=== PATIENT | female | born 1955 | race Asian ===

== ENCOUNTER 2023-06-08 07:16 | Observation (INO) ==
--- NOTE | 2023-04-17 11:41 | PAT Medication Instructions ---
Medication Instructions Date of Service April 17, 2023 Home Medications Medication Instructions Recorded diclofenac sodium 1 % topical gel 1 g topical QID PRN pain #100 grams 11/22/22 albuterol sulfate 90 mcg/actuation aerosol inhaler 2 puff inhalation Q6H PRN Wheezing cetirizine 10 mg capsule (Zyrtec) 10 mg PO QAM PRN Allergy Symptoms esomeprazole magnesium 40 mg capsule,delayed release (Nexium) 40 mg PO QAM montelukast 10 mg tablet (Singulair) 10 mg PO QPM acetaminophen 500 mg tablet (Tylenol Extra Strength) 1,000 mg PO ONCE PRN Pain omalizumab 150 mg subcutaneous solution (Xolair) 225 mg subcut Q14D diclofenac sodium 1 % topical gel 1 g topical QID PRN pain evolocumab 140 mg/mL subcutaneous pen injector (Repatha SureClick) 140 mg subcut Q14D ASK your prescriber and surgeon omalizumab 150 mg subcutaneous solution (Xolair) 225 mg subcut Q14D STOP taking 2 weeks before surgery (or as soon as possible if surgery is within 2 weeks) evolocumab 140 mg/mL subcutaneous pen injector (Repatha SureClick) 140 mg subcut Q14D STOP taking 24 hours before surgery diclofenac sodium 1 % topical gel 1 g topical QID PRN pain DO NOT take the morning of surgery cetirizine 10 mg capsule (Zyrtec) 10 mg PO QAM PRN Allergy Symptoms Take morning of surgery With a small sip of water, OTHERWISE NOTHING TO EAT OR DRINK AFTER MIDNIGHT: albuterol sulfate 90 mcg/actuation aerosol inhaler 2 puff inhalation Q6H PRN Wheezing (use if needed; please bring rescue inhaler with you to hospital day of surgery if possible) esomeprazole magnesium 40 mg capsule,delayed release (Nexium) 40 mg PO QAM acetaminophen 500 mg tablet (Tylenol Extra Strength) 1,000 mg PO ONCE PRN Pain (if needed) Take evening before surgery albuterol sulfate 90 mcg/actuation aerosol inhaler 2 puff inhalation Q6H PRN Wheezing (if needed) montelukast 10 mg tablet (Singulair) 10 mg PO QPM acetaminophen 500 mg tablet (Tylenol Extra Strength) 1,000 mg PO ONCE PRN Pain (if needed) Other Notes If you have any questions please call us at [phone] or [phone] or [phone] or [phone]
--- NOTE | 2023-04-25 13:07 | Anesthesiology Consultation ---
Date of Service April 25, 2023 Assessment & Plan (1) Encounter for pre-operative examination: - awaiting PCP optimization form regarding abnormal CBC. - cardiology office visit 11/17/22 [facility]: "...Chronic atypical chest pain - repeat nuclear stress testing in 2022 negative for inducible ischemia Elevated coronary calcium score Hiatal hernia Hyperlipidemia with statin intolerance. doing clinically well. She is not had any recent lab work and I have ordered a follow-up lipid panel along with thyroid functions and hemoglobin A1c. I will review this lab work when it is complete. Otherwise we will see her again in 6 months or earlier if needed..." - pulmonology office visit 09/26/22 [facility]: "...severe persistent asthma, allergic rhinitis, IgE GERD with hiatal hernia esophagitis here for follow-up visit...Denies any recent flare-ups...C/w Xolair, adjust dose to 150 mg PFS for Home admin Q 2weeks PRN MDI F/u 3 months..." - Outpatient joint assessment: Patient is currently scheduled for inpatient pathway. If re-evaluated and patient/surgeon requests outpatient pathway, patient is/is not acceptable candidate for outpatient joint program from anesthesia standpoint pending surgeon's office assessment of pt motivation/support/completion of same day joint program preop requirements. Chart Review Chart Review: Pending: Refer to Additional Notes / Consult section and Patient seen in Pre Admission Testing Teaching & Discussion Pre-Anesthesia Teaching/Discussion Notes: Instructed NPO after midnight before surgery, except medications with 15 cc of water. Medication instructions provided according to the PAT guidelines. History Surgery Operation Date: 06/08/23 09:00 Proposed Procedures p Right Unicompartment Knee Arthroplasty vs Total Knee Arthroplasty - Tyrone Wilson, Height/Weight Height: 5 ft 1 in Weight: 64.3 kg Allergies Allergy/AdvReac Type Severity Reaction Status Date / Time morphine AdvReac Intermediate tachycardia Verified 04/13/23 07:33 c Medications Home Medications Medication Instructions Recorded Confirmed Last Taken albuterol sulfate 90 mcg/actuation 2 puff inhalation Q6H PRN Wheezing 05/11/20 04/13/23 11/19/22 aerosol inhaler cetirizine 10 mg capsule (Zyrtec) 10 mg PO QAM PRN Allergy Symptoms 05/11/20 04/13/23 11/19/22 esomeprazole magnesium 40 mg 40 mg PO QAM 05/11/20 04/13/23 11/29/22 capsule,delayed release (Nexium) montelukast 10 mg tablet 10 mg PO QPM 05/11/20 04/13/23 11/19/22 (Singulair) acetaminophen 500 mg tablet 1,000 mg PO ONCE PRN Pain 08/29/22 04/13/23 11/19/22 (Tylenol Extra Strength) omalizumab 150 mg subcutaneous 225 mg subcut Q14D 08/29/22 04/13/23 11/19/22 solution (Xolair) diclofenac sodium 1 % topical gel 1 g topical QID PRN pain #100 grams 11/22/22 04/13/23 11/29/22 evolocumab 140 mg/mL subcutaneous 140 mg subcut Q14D 11/22/22 04/13/23 11/19/22 pen injector (Repatha Seldom Seen [employer]) Past Medical History Medical History Cerebral aneurysm 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 the anterior interhemispheric fissure on 12/2022 head MRA-followed by [facility] PCP to chart review Hyperparathyroidism PSVT (paroxysmal supraventricular tachycardia) CKD (chronic kidney disease) stage 3, GFR 30-59 ml/min Sleep apnea demonstrated on 2020 sleep study Lumbar facet joint syndrome Asthma well controlled, rescue inhaler reduced since starting Xolair-average a few times monthly-last use several weeks ago, triggers-pollens, humidity, pollution Piriformis syndrome of right side Thalassemia Osteoporosis Chronic rhinitis GERD (gastroesophageal reflux disease) controlled, stable per pt Patient denies h/o stroke, seizures, heart attack, heart failure, DM, HTN, blood clots/DVTs/PEs or blood transfusions. Exercise / Class Metabolic Activity II 4-5 Yardwork/Stairs/Walk up hill (denies chest discomfort or shortness of breath with 1 FOS) Past Family History Family History Mother Asthma Diabetes Stroke Hypertension Sister Arthritis Brother Arthritis Past Surgical History Surgical History S/P medial meniscectomy of right knee History of section x1 History of esophagogastroduodenoscopy (EGD) History of colonoscopy History of lumbar surgery L4-L5 fusion H/O sinus surgery H/O breast biopsy unsure which side, negative Past Anesthesia History No Hx of Anesthesia Complications and No Family Hx of Anesthesia Complications History of PONV No Hx of PONV and Hx of Motion Sickness Social History Smoking Status: Never smoker Do You Dip or Chew Tobacco: No Hx Alcohol Use: No Hx Substance Use: No substance use type: does not use Review of Systems Patient denies chest pain, shortness of breath, dyspnea on exertion, fever, chills, cough, wheezing, or palpitations. Physical Exam Vital Signs Vitals BP 128/80 P 85 TEMP 98.6 SP02 97% on RA RESP 18 Physical Patient resting comfortably in chair in no acute distress, alert and oriented, responding appropriately throughout visit Full cervical extension range of motion without pain TMD 3.5 finger breadths Mallampati Score 2 Dentition: several implants-left upper side, denies chipped or loose teeth, caps/crowns, or bridges Lungs: normal respiratory effort. Good air movement, clear throughout to auscultation, no adventitious breath sounds Cardiac: regular rate and rhythm, no murmurs noted Carotid arteries: negative bruit bilat Lab Results Anesthesia Preop Results Results Anesthesia Widget: WBC 7.83 K/ul (4.8-10.8) 04/25/23 Hgb 11.6 g/dl (12.0-16.0) L 04/25/23 Hct 37.3 % (37.0-47.0) 04/25/23 Plt 299 K/uL (130-400) 04/25/23 Na 140 mmol/L (136-145) 04/25/23 K 4.7 mmol/L (3.5-5.1) 04/25/23 Cl 106 mmol/L (98-107) 04/25/23 CO2 28 mmol/L (21-32) 04/25/23 BUN 8 mg/dl (6-23) 04/25/23 Creat 0.81 mg/dl (0.6-1.2) 04/25/23 Glucose Level 88 mg/dl (70-99(Fasting)) 04/25/23 PT 10.4 Seconds (9.0-12.0) 04/25/23 PTT 26 Seconds (21-31) 04/25/23 INR 0.9 (0.9-1.1) 04/25/23 Blood Type B Positive 04/25/23 Antibody Screen NEGATIVE 04/25/23 Testing Electrocardiogram Date: 03/27/23 NSR, rate 88 bpm Possible LA enlargement Septal infarct, age undetermined cited on or before 01/26/2020 per [facility] records Chest X-Ray Date: 04/25/23 Cardiac mediastinal and hilar silhouettes are within normal limits. Hiatal hernia. Mild hyperinflation with diaphragmatic flattening. No pneumothorax, pleural effusion or airspace consolidation. Bones appear grossly intact. IMPRESSION: No acute process. Stress Test Date: 04/26/22 Pharmacologic Negative for ischemia MPHR 98% EF > 65% Other Testing Head MRA 01/20/23 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 the anterior interhemispheric fissure.
--- NOTE | 2023-06-07 06:30 | History & Physical Report ---
Date of Service June 07, 2023 Assessment & Plan (1) Osteoarthritis of right knee: We will proceed with a right partial knee replacement surgery. Postoperatively she will be started on aspirin for DVT prophylaxis and kept overnight in the hospital for postoperative medical management. She plans to have the hospital set up home health before discharge. History of Present Illness Chief Complaint: Medial compartment arthritis of the right knee. Primary Care Provider: Tracy Henley MD Familia is a pleasant 68-year-old female who initially had a work-related injury in the past. She was dealing with a chronic right knee pain. I did a right knee arthroscopy on her in November 2022. I was able to remove a meniscus tear, but she also had some grade 4 chondral damage of the distal medial femoral condyle. Unfortunately, she has not done well postoperatively. She is still limping with the right knee. All of her pain is located medially. She is wearing a knee brace. After failing conservative treatment, she has elected to proceed with a right partial knee replacement surgery. Allergies Allergy/AdvReac Type Severity Reaction Status Date / Time morphine AdvReac Intermediate tachycardia Verified 04/13/23 07:33 c Home Medications Medication Instructions Recorded Confirmed Type albuterol sulfate 90 mcg/actuation 2 puff inhalation Q6H PRN Wheezing 05/11/20 04/13/23 History aerosol inhaler cetirizine 10 mg capsule (Zyrtec) 10 mg PO QAM PRN Allergy Symptoms 05/11/20 04/13/23 History esomeprazole magnesium 40 mg 40 mg PO QAM 05/11/20 04/13/23 History capsule,delayed release (Nexium) montelukast 10 mg tablet 10 mg PO QPM 05/11/20 04/13/23 History (Singulair) acetaminophen 500 mg tablet 1,000 mg PO ONCE PRN Pain 08/29/22 04/13/23 History (Tylenol Extra Strength) omalizumab 150 mg subcutaneous 225 mg subcut Q14D 08/29/22 04/13/23 History solution (Xolair) diclofenac sodium 1 % topical gel 1 g topical QID PRN pain #100 grams 11/22/22 04/13/23 Rx evolocumab 140 mg/mL subcutaneous 140 mg subcut Q14D 11/22/22 04/13/23 History pen injector (Repana Canela) Past Med/Surg History Medical History Cerebral aneurysm 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 the anterior interhemispheric fissure on 12/2022 head MRA-followed by [facility] PCP to chart review Hyperparathyroidism PSVT (paroxysmal supraventricular tachycardia) CKD (chronic kidney disease) stage 3, GFR 30-59 ml/min Sleep apnea demonstrated on 2020 sleep study Lumbar facet joint syndrome Asthma well controlled, rescue inhaler reduced since starting Xolair-average a few times monthly-last use several weeks ago, triggers-pollens, humidity, pollution Piriformis syndrome of right side Thalassemia Osteoporosis Chronic rhinitis GERD (gastroesophageal reflux disease) controlled, stable per pt Surgical History S/P medial meniscectomy of right knee History of section x1 History of esophagogastroduodenoscopy (EGD) History of colonoscopy History of lumbar surgery L4-L5 fusion H/O sinus surgery H/O breast biopsy unsure which side, negative Family History Mother Asthma Diabetes Stroke Hypertension Sister Arthritis Brother Arthritis Social History Smoking Status: Never smoker Second Hand Exposure: No; Do You Dip or Chew Tobacco: No; Tobacco Cessation Education Requested by Patient: No Hx Alcohol Use: No Hx Substance Use: No Preferred Language: Danish Communication Ability: Effective Visual Impairment: No Limitations Hearing Ability: Normal Streaming Media Specialist Required: No Beliefs That Will Affect Care: None marital status: Single Current Living Situation: Family Current Living Situation Comment: 2 sons live with patient current occupational status: retired Other Information That Helps Us Care for You: No Feels Safe at Home: Yes Safety Concerns: Feels Safe At This Time Assistive Devices: None Review of Systems All systems reviewed & are unremarkable except as noted in HPI & below. Physical Exam On physical examination of the right knee, she has tenderness palpation of the distal medial femoral condyle and over the medial joint line.. Constitutional WD/WN, vitals as above Eyes PERRL, conjunctivae normal, anicteric sclerae ENMT external ear and nose normal, oropharynx normal Neck trachea midline, no thyromegaly Respiratory normal respiratory effort Cardiovascular RRR, no murmur, no edema Gastrointestinal (Abdomen) normal bowel sounds, soft, nontender, no hepatosplenomegaly Psychiatric A+Ox3, euthymic affect Results & Data Results & Data Laboratory Results . Diagnostic Findings X-rays of the right knee show some medial joint space narrowing and small osteophyte formation.. PG Care Time/CCT Total # of Minutes Spent Total Time Spent with Patient: Total time spent is greater than 50% in coordination of care (as documented) at patient's floor/unit and/or counseling patient: Coding Level of Care Code None Diagnoses Osteoarthritis of right knee M17.11
[~2023-06-08 07:16] MED LIST: BUPIVACAINE 0.5 % 5 MG/1 ML PF 10ML VIAL ONE; DEXAMETHASONE SOD INJ 4 MG/ML VIAL ONE; ROPIVACAINE 0.5% 5 MG/ML 30 ML VIAL ONE
--- NOTE | 2023-06-08 08:05 | History & Physical Bridge Note ---
Date of Service June 08, 2023 History & Physical Bridge Note I have examined the patient, reviewed the History & Physical and in the interval since the performance of the History & Physical I have noted the following changes of clinical significance: no changes noted
[2023-06-08] MEDS: ACETAMINOPHEN 500 MG TAB PO SCH ×2 (08:32→13:43)
[2023-06-08] MEDS ORDERED: MIDAZOLAM HCL 1 MG/ML 2ML VIAL ONE (08:33)
[2023-06-08] MEDS: FAMOTIDINE 20 MG TAB PO SCH (08:33)
[2023-06-08] MEDS ORDERED: fentaNYL citrate PF 100 MCG/2 ML VIAL ONE (08:33)
[2023-06-08] MEDS: LR 500ML BOLUS, THEN 15ML/HR IV SCH (08:33)
[2023-06-08] MEDS: dexAMETHasone**PF** 10 MG/ML VIAL IV SCH (08:33)
[2023-06-08] MEDS: LR 60ML/HR IV SCH (08:33)
[2023-06-08] MEDS: GABAPENTIN 300 MG CAP PO SCH (08:33)
[2023-06-08] MEDS: TRANEXAMIC ACID 1,000 MG **IV Pre-op IV SCH (09:02)
[2023-06-08] MEDS: ceFAZolin 2000MG 2,000 MG/15 ML SYR IV SCH ×2 (09:16→16:42)
[2023-06-08] MEDS: ORTHO JOINT ANESTHETIC ONE (09:49)
[2023-06-08] MEDS: ROPIV 0.5% 246mg, Ketorolac 30mg, EPINEPHrine 0.5mg in NSS INFIL SCH (10:21)
--- NOTE | 2023-06-08 10:28 | Operative Report ---
PG Post Operative Report Pre & Post Diagnosis Operation Date: 06/08/23 09:00 Pre-Op Diagnosis: Degenerative Joint Disease Right Knee Post-Op Diagnosis: Degenerative Joint Disease Right Knee I identified the patient and participated in the time-out.: Yes Procedure Operation Date: 06/08/23 09:00 Actual Procedures p Right Total Knee Arthroplasty(Right) - Tyrone Wilson DO Surgeon Tyrone Wilson DO Cigar Bander Hand Tyrone Davidson PA-C Estimated Blood Loss 30 Findings Consistent with Post-Op Diagnosis Specimens Right femoral tibial bone Description of Procedure Implants used: I used a Leslie Persona total knee arthroplasty system with a size 5 narrow CR femur, D tibia, 28 oval patella, and a size 12 medial congruent polyethylene bearing. All components were cemented in place with Biomet cement. Familia arrived [facility] for the above procedure. She was seen in the preoperative holding area and the operative extremity was identified and signed. She was given a preoperative antibiotic, TXA, a spinal anesthetic and an adductor nerve block. She was taken back to the operating room and laid on the table in supine position. She was given basic sedation. The operative knee was then prepped and draped in sterile fashion. A timeout was done, and the patient and the operative extremity was properly identified. A midline incision was made directly over the patella. Dissection was taken down to the extensor mechanism. A subvastus arthrotomy was used. The medial retinaculum was released and the fat pad was mostly excised. The knee was flexed and the ACL, PCL, and meniscus were removed. A drill was sent down the center of the femoral canal followed by an intramedullary stevie. Off that stevie a distal femoral cutting block was placed. 9 mm was resected off the distal femur at 5 of valgus. A posterior referencing AP sizing guide was then placed on the distal femur. The femur measured to be a size 5. 2 drill holes were placed in 3 of external rotation. A 4-in-1 cutting block was then impacted into place. Anterior, posterior, and chamfer cuts were then made. The proximal tibia was then exposed. An external tibial alignment guide was placed. A tibial cut guide was then anchored in place and the proximal tibia was then resected. The posterior aspect of the knee was then opened up and any additional meniscus fragments and osteophytes were removed. The tibia measured to be a size D. The tibial plate was then placed in the appropriate rotation and the tibia was drilled and punched. Trial components were then placed. I used a size 12 medial congruent polyethylene insert. The knee was brought through a full range of motion and felt to be stable. The peg holes for the femoral component were then drilled. The patella was then everted and 9 mm was resected off the posterior aspect of the patella. The patella measured to be a size 28 oval. 3 peg holes were then drilled. A trial patella was placed. The knee was once again brought through a full range of motion and felt to be stable. Trial components were then removed. The surrounding soft tissues were injected with 100 cc of an orthopedic pain control cocktail. All components were then cemented into place with Biomet cement. The final polyethylene insert was then snapped into place. Once cement was dry the tourniquet was deflated. Hemostasis was obtained. A dilute betadyne lavage was then done for 3 minutes. The joint was then irrigated with normal saline solution. The subvastus arthrotomy was then closed with #1 Vicryl suture. The skin was closed with 2-0 Vicryl, 3-0V lock suture, and mojgan. A soft compressive dressing was placed. She was then transferred to a hospital bed and taken to the postanesthesia care unit in stable condition. She tolerated the procedure well. Tyrone Davidson PA-C, was present for the entire procedure. He was critical for patient positioning, prepping, draping, retraction exposure, wound closure and application of sterile dressing. I attest to the content of the Intraoperative Record and any orders documented therein. Any exceptions are noted below.
[2023-06-08] MEDS: TRANEXAMIC ACID 1,000 MG **IV Intra-op IV SCH (10:29)
[2023-06-08] MEDS ORDERED: PROPOFOL IV EMULSION 10 MG/ML 20 ML VIAL IV ONE (10:50)
[2023-06-08] MEDS ORDERED: ONDANSETRON INJ 2 MG/ML 2 ML VIAL ONE (10:50)
--- NOTE | 2023-06-08 12:15 | XRay Report ---
XR knee RT 1 or 2V routine CLINICAL HISTORY: Postoperative evaluation. COMPARISON: Right knee radiographs April 25, 2023. FINDINGS: Alignment of the total right knee arthroplasty is anatomic. There is no periprosthetic fra cture or unexpected radiopaque foreign body. Skin mojgan are present. An oblique lucency projecting over the proximal right fibula on lateral projection is likely artifactual. IMPRESSION: Expected findings following total right knee arthroplasty. ACT 112: Negative or not required by law. Electronically signed by: Buck Yeung M.D. 06/08/2023 12:13 PM
--- NOTE | 2023-06-08 12:46 | Anesthesiology Progress Note ---
Date of Service June 08, 2023 Anesthesia Post Procedure Vital Signs Vital Signs: Temp Pulse Pulse Resp BP Pulse Ox O2 Del Method 06/08/23 12:40 85 16 133/72 96 Room Air 06/08/23 12:30 83 16 134/77 94 Room Air 06/08/23 12:20 82 15 134/76 96 Room Air 06/08/23 12:10 77 15 121/73 93 Room Air 06/08/23 12:00 78 15 123/73 94 Room Air 06/08/23 11:50 81 16 121/76 92 Room Air 06/08/23 11:40 80 14 119/77 93 Room Air 06/08/23 11:30 36.3 C L 80 14 127/67 93 Room Air 06/08/23 11:20 85 14 123/74 94 Room Air 06/08/23 11:10 81 17 124/65 98 Oxymask 06/08/23 11:00 85 15 127/71 98 Oxymask 06/08/23 10:50 92 H 20 138/69 99 Oxymask 06/08/23 10:43 36.3 C L 88 16 119/74 99 Oxymask 06/08/23 08:00 36.7 C 82 18 149/86 H 98 Room Air O2 Flow Rate 06/08/23 12:40 06/08/23 12:30 06/08/23 12:20 06/08/23 12:10 06/08/23 12:00 06/08/23 11:50 06/08/23 11:40 06/08/23 11:30 06/08/23 11:20 06/08/23 11:10 4 06/08/23 11:00 4 06/08/23 10:50 6 06/08/23 10:43 6 06/08/23 08:00 Pain Intensity Right Knee: Pain Intensity: 6 Transfer of Care Handoff Completed per policy Notes Mental Status: alert / awake / arousable and participated in evaluation Nausea / Vomiting: adequately controlled Pain: adequately controlled Airway Patency, RR, SpO2: stable & adequate BP & HR: stable & adequate Hydration State: stable & adequate Neuraxial Anesthesia: was administered and sensory block is resolving Anesthetic Complications: no major complications apparent and Pt Satisfied with anesthetic care
[2023-06-08] MEDS ORDERED: DICLOFENAC SOD 1% GEL 100 GM TUBE EXT PRN (12:59)
[2023-06-08] MEDS ORDERED: HYDROmorphone INJ 0.5 MG/0.5 ML SYR IV PRN (12:59)
[2023-06-08] MEDS ORDERED: NALOXONE HCL 0.4 MG/1 ML VIAL/CARP IV PRN (12:59)
[2023-06-08] MEDS ORDERED: bisacodyL 10 MG SUPP PR PRN (12:59)
[2023-06-08] MEDS ORDERED: MAGNESIUM HYDROXIDE SUSP 30 ML UDC PO PRN (12:59)
[2023-06-08] MEDS ORDERED: ALBUTEROL HFA 8 GM INHALER INH PRN (12:59)
[2023-06-08] MEDS ORDERED: CETIRIZINE HCL 10 MG TABLET PO PRN (13:05)
[2023-06-08] MEDS: KETOROLAC TROMETHAMINE 15 MG/ML VIAL IV SCH (13:43)
[2023-06-08] MEDS: SODIUM CHLORIDE 0.9% 1,000 ML IV SCH (13:44)
--- OUTSIDE RECORDS SUMMARY | 2023-06-08 14:10 | External Medical Summary | Summary of Care ---
Author Name Unknown Organization [facility] Address [address] [place] [address] Phone [phone] Care Team Providers Care University Administrator Name Role Phone Kenzie Pacheco MD Primary Care Provider [phone] Reason for Visit * Reason Onset Date Comments Precert Future 06/01/2023 Reclast Encounter Details Date Type Department Care Team (Late st Contact Info) Description 06/01/2023 Telephone Hematology/Oncology [facility] [address] [place] [place] [address] Hari Hinton MD [address] [place] [address] Precert Future (Reclast) Allergies Active Allergy Reactions Criticality Noted Date Comments Morphine 12/25/2017 tachycardiac documented as of this encounter (statuses as of 06/04/2023) Medications Medication Sig Dispensed Refills Start Date End Date Status Spacer/Aero-Hold Chamber MaskIndications:Mi ld persistent asthma without complication Use with inhaler 1 Each 0 04/29/2020 Active Tylenol 325 MG Oral Capsule (Acetaminophen) Take by mouth. 0 Activ e Naproxen Sodium 220 MG Oral Capsule Take 1 Capsule by mouth 2 times a day with morning and evening meals. 0 Active Fluocinonide 0.05 % External Solution APPLY A FEW DROPS TO THE INVOLVED AREA TWICE A DAY 0 08/01/2021 Active Vitamin D3 25 MCG (1000 UT) Oral Tablet (Vitamin D3) Take 1 Tablet by mouth in the morning. 0 08/19/2021 Active Ketotifen Fumarate 0.025 % Ophthalmic Solution (Zaditor) Use 1 drop in each eye twice daily as needed for allergic eye symptoms 5 mL 6 09/14/2021 Active EPINEPHrine 0.3 MG/0.3ML Injection Solution Auto-injector (Autoinjector) For a severe reaction: Inject in outer thigh following instructions on package and go to the Emergency room. 2 Each 3 09/28/2021 Active Additional Information Patient not taking.Reported on 01/15/2023 guaiFENesin ER 600 MG Oral Tablet Extended Release 12 Hour (Mucinex) Use 1-2 tablets every 12 hours for excessive chest mucus production 0 12/15/2021 Active Additional Information Patient not taking.Reported on 2023 Cetirizine HCl 10 MG Oral Tablet (ZyrTEC) Take by mouth 1 Tablet in the morning AND 1 Tablet before bedtime. Take one tablet daily for nasal allergy symptoms. 60 Tablet 11 12/29/2021 Active Additional Information Patient not taking.Reported on 2023 Levalbuterol Tartrate 45 MCG/ACT Inhalation Aerosol (Xopenex Hfa)Indications:[place] persistent asthma with acute exacerbation Inhale 2 Puffs by mouth every 4 hours as needed for Wheezing or Shortness of Breath (cough). 45 g 3 02/16/2022 Active Budesonide-Formote rol Fumarate 160-4.5 MCG/ACT Inhalation Aerosol (Symbicort) Inhale 2 Puffs by mouth in the morning and 2 Puffs before bedtime. 10.2 g 3 04/11/2022 Active Additional Information Patient not taking.Reported on 2023 Nitroglycerin 0.4 MG Sublingual Tablet Sublingual (Nitrostat) Place 1 Tablet under the tongue every 5 minutes as needed for Pain, Chest. up to 3 doses in 15 minutes 25 Tablet 11 04/18/2022 Active Additional Information Patient not taking.Reported on 01/15/2023 Xolair 150 MG/ML Subcutaneous Solution Prefilled Syringe (Omalizumab)Indica tions:Elevated IgE level Inject 150 mg (1 syringe) under the skin every 14 days. 6 mL 3 11/29/2022 08/22/2023 Active Tamsulosin HCl 0.4 MG Oral Capsule (Flomax) Take 1 Capsule by mouth in the morning. 30 Capsule 3 01/16/2023 Active Additional Information Patient not taking.Reported on 2023 Famotidine 20 MG Oral Tablet (Pepcid) Take 1 tablet twice daily for persistent heartburn, acid reflux 180 Tablet 2 03/16/2023 Active Repatha SureClick 140 MG/ML Subcutaneous Solution Auto-injector (evolocumab)Indica tions:Dyslipidemia , goal LDL below 70 Inject 140 mg under the skin every 14 days. Remove from refrigerator 30 minutes prior to injection. 6 mL 3 03/22/2023 Active Esomeprazole Magnesium 40 MG Oral Packet (NexIUM) Take 40 mg by mouth every evening. 0 Active Alendronate Sodium 70 MG Oral Tablet (Fosamax)Indicatio ns:High risk for fracture due to osteoporosis by DEXA scan Take 1 Tablet by mouth once a week. with 8 oz. water 30 minutes before first meal of the day. Remain upright for 30 min after taking tablet 15 Tablet 1 04/26/2023 Active Montelukast Sodium 10 MG Oral Tablet (Singulair) Take 1 tablet daily each evening 90 Tablet 2 05/25/2023 Active documented as of this encounter (statuses as of 06/04/2023) Active Problems Problem Noted Date Diagnosed Date Age-related osteoporosis wit hout current pathological fracture 05/30/2023 Statin intolerance 06/01/2022 Severe persistent asthma with acute exacerbation 12/12/2021 PSVT (paroxysmal supraventricular tachycardia) 0 06/02/2021 Sicca syndrome 10/13/2020 Elevated coronary artery calcium score 1 Chronic kidney disease, stage 3a 05/31/2020 Overview: Per CKD protocol Hyperparathyroidism, primary 04/29/2020 Allergic rhinitis 08/26/2019 Dry eyes 08/26/2019 Mouth lesion 08/26/2019 Leg cramps 08/26/2019 High risk for fracture due to osteoporosis by DE XA scan 07/04/2019 Hiatal hernia with GERD and esophagitis 12/13/19 19 Thalassemia 12/26/2017 Dyslipidemia, goal LDL below 100 12/26/2017 Chronic frontal sinusitis 12/25/2017 documented as of this encounter (statuses as of 06/04/2023) Resolved Problems Problem Noted Date Diagnosed Date Resolved Date Prediabetes 06/06/2021 01/04/2023 Overview: Per Prediabetes protocol Overweight (BMI 25.0-29.9) 07/08/2020 0 01/15/2023 Severe persistent asthma without complication 08/26/19 20 12/12/2021 Mild intermittent asthma with exacerbation 06/26/2019 08/26/2019 GERD (gastroesophageal reflux disease) 12/25/2017 12/12/2018 documented as of this encounter (statuses as of 06/04/2023) Immunizations Name Administration Dates Next Due COVID-19 mRNA, LNP-s, No Pre serve, 2-Dose Series ([employer]) 06/05/2020,05/15/2020 Covid-19, Mrna, Lnp-s, Pf, B ivalent, 30 Mcg, IM, 12 yrs and above ([employer]) 02/10/2022 Pneumococcal Conjugate Vacc, 13 Valent (Prevnar) 12/18/2019 Pneumococcal Polysaccharide PPV23 (Pneumovax) Seasonal Influenza Virus Vac cine, Unspecified Formulation 01/21/2018 Seasonal Influenza, PF, 6 M & above, IM , (FluLaval or Fluzone) 12/18/2019 Seasonal Influenza, Quadrivalent Hd (Fluzone Hd) 03/22/2022,02/26/2021 Seasonal Influenza, Quadrivalent, No Preserve, I M 01/21/2018 Seasonal Influenza, Quadrivalent, No Preserve, M dck 03/06/2019 Zoster Vaccine Recombinant (Shingrix) 01/16/2020 ,06/26/2019 documented as of this encounter Social History Tobacco Use Types Packs/Day Years Used Date Smoking Tobacco: Never Smokeless Tobacco: Never Comments:no passive smoke ex posures Alcohol Use Standard Drinks/Week Comments No 0 (1 standard drink = 0.6 oz pur e alcohol) PHQ-2 Answer Date Recorded PHQ Adult Total Score 0 01/15/2023 Hunger Vital Sign Answer Date Recorded Worried About Running Out of Food in the Last Ye ar Never true 05/23/2019 Ran Out of Food in the Last Year Never true 05/23/2019 Sex and Gender Information Value Date Recorded Sex Assigned at Female 05/23/2019 1:02 PM EST Gender Identity Female 05/23/2019 1:02 PM EST Sexual Orientation Straight 05/23/2019 1: 02 PM EST Job Start Date Occupation Industry Not on file Not on file Not on file documented as of this encounter Miscellaneous Notes * Telephone Encounter - Nathan Sandhu RN - 06/04/2023 2:45 PM EST Received approval for Reclast via fax. Sent to pre-cert to update referral. Once updated, we can schedule patient. * Telephone Encounter - Nathan Sandhu RN - 06/01/2023 12:20 PM EST Received order for Reclast as this is preferred over Prolia. [place] plan built and routed for signature. Creatine completed 04/25/23. Calcium completed 03/27/23. Vit D ordered by PCP. Dr. Hinton, would you like patient to have Vitamin D done prior to infusion? documented in this encounter Plan of Treatment Upcoming Encounters Date Type Department Care Team (Late st Contact Info) Description 06/06/2023 2:30 PM EST Office Visit Cardiology, [facility] [address] [facility] [place] [address] Travon Kruse DO [address] [place] [address] 06/15/2023 1:00 PM EST Office Visit Cardiology, [facility] [address] [facility] [place] [address] [facility] Cardiology [facility] [address] [facility] [place] [address] 07/17/2023 2:20 PM EDT Office Visit General Internal Medicine [facility] [address] [facility] [place] [address] Kenzie Pacheco MD [address] [facility] [place] [address] 12/25/2023 11:30 AM EDT Imaging Radiology [facility] [address] [facility] [address] [place] [address] 01/08/2024 1:15 PM EDT Office Visit Hematology/On[facility] [address] [place] [address] Hari Hinton MD [address] [place] [address] Health Maintenance Due Date Last Done Comments DTaP,Tdap,and Td Vaccines (1 - Tdap) 1973 Colonoscopy 1999 Fecal Occult Blood Test 1999 Sigmoidoscopy 1999 COVID-19 Vaccine (4 - season) 2022 02/10/2022, 06/05/2020, 05/15/2020 Influenza Vaccine (FLU shot) (#1) 2022 03/22/2022, 02/26/2021, 12/18/2019, Additional history exists Albumin/Creatinine Ratio 07/08/2023 07/07/2022, 05/24 CKD PHOS USE SMARTSET 38319 07/08/202306/21, 12/10/2020, 12/26/2019 DXA Scan 07/20/2023 07/19/2021, 07/02/2019 GFR 10/24/2023 2023, 1208/2022, 07/07/2022, Additional history exists Depression Screening 01/16/2024 01/15/2023 Mammogram 01/16/2024 01/15/2023, 090 04/2022, 02/18/2021, Additional history exists CKD HGB USE SMARTSET 45861 04/25/202404/25, 03/27/2023, 07/07/2022, Additional history exists Cologuard 08/11/2025 08/11/2022, 07/22, 08/04/2022 Colorectal Cancer Screening 08/11/2025 Diabetes Screening 2026 2023, 1 05/28/2022, 12/22/2022, Additional history exists Zoster Vaccines Completed 01/16/2020, 06/26/2019 Pneumococcal Vaccine: 65+ Years Completed 10/13/2020, 12/18/2019 VITAMIN D LEVEL ONCE IN A LIFETIME-USE SMARTSET# [id number] Completed 12/01/2021, 08/03/2021, 06/02/2021, Additional history exists GARDASIL-HPV IMMUNIZATION SERIES Aged Out No longer eligible based on patient's age to complete this topic MENINGOCOCCAL (MENACTRA/MENVEO) Aged Out No longer eligible based on patient's age to complete this topic documented as of this encounter Medical Devices Not on filedocumented as of this encounter Advance Directives Latest Code Status on File Code Status Date Activated Date Inactivated Comments Full Code 05/02/2023 7:00 AM 05/02/2023 2:32 PM This order reflects the patients wishes and were consensually agreed upon. Question Answer Comments Discussion of Advance Directives occurred with: Patient Care Teams University Administrator Relationship Specialty Start Date End Date Kenzie Pacheco MD [address] [facility] [place] [address] PCP - General Internal Medicine 06/26/19 documented as of this encounter
--- OUTSIDE RECORDS SUMMARY | 2023-06-08 14:10 | External Medical Summary | Summary of Care ---
Author Name Unknown Organization [facility] Address [address] [place] [address] Phone [phone] Care Team Providers Care Hypertrichologist Name Role Phone Kenzie Pacheco MD Primary Care Provider [phone] Reason for Visit * Reason Comments Follow Up Encounter Details Date Type Department Care Team (Late st Contact Info) Description 06/06/2023 2:30 PM EST Office Visit Cardiology, [facility] [address] [place] [address] Travon Kruse, [address] [facility] [address] Statin intolerance*; Hyperlipidemia with target LDL less than 100 Allergies Active Allergy Reactions Criticality Noted Date Comments Morphine 12/25/2017 tachycardiac documented as of this encounter (statuses as of 06/06/2023) Medications Medication Sig Dispensed Refills Start Date End Date Status Spacer/Aero-Hold Chamber MaskIndications:M ild persistent asthma without complication Use with inhaler 1 Each 0 04/29/2020 Active Acetaminophen 325 MG Oral Tablet (Tylenol) as needed. 0 Active Naproxen Sodium 220 MG Oral Capsule Take 1 Capsule by mouth every 12 hours as needed for Pain. 0 Active Vitamin D3 125 MCG (5000 UT) Oral Capsule Take 1 Capsule by mouth in the morning. 0 08/19/2021 Active Ketotifen Fumarate 0.025 % Ophthalmic Solution (Zaditor) Use 1 drop in each eye twice daily as needed for allergic eye symptoms 5 mL 6 09/14/2021 Active Additional Information Patient not taking.Reported on 06/06/2023 EPINEPHrine 0.3 MG/0.3ML Injection Solution Auto-injector (Autoinjector) For a severe reaction: Inject in outer thigh following instructions on package and go to the Emergency room. 2 Each 3 09/28/2021 Active guaiFENesin ER 600 MG Oral Tablet Extended Release 12 Hour (Mucinex) Use 1-2 tablets every 12 hours for excessive chest mucus production 0 12/15/2021 Active Additional Information Patient taking differently: 1,200 mg Oral HS, Use 1-2 tablets every 12 hours for excessive chest mucus production, Reported on 06/06/2023 Cetirizine HCl 10 MG Oral Tablet (ZyrTEC) Take by mouth 1 Tablet in the morning AND 1 Tablet before bedtime. Take one tablet daily for nasal allergy symptoms. 60 Tablet 11 12/29/2021 Active Additional Information Patient taking differently:10 mg OralPRN, Rhinitis, Take one tablet daily for nasal allergy symptoms, Reported on 06/06/2023 Levalbuterol Tartrate 45 MCG/ACT Inhalation Aerosol (Xopenex Hfa)Indications:S evere persistent asthma with acute exacerbation Inhale 2 Puffs by mouth every 4 hours as needed for Wheezing or Shortness of Breath (cough). 45 g 3 02/16/2022 Active Budesonide-Formot esau Fumarate 160-4.5 MCG/ACT Inhalation Aerosol (Symbicort) Inhale 2 Puffs by mouth in the morning and 2 Puffs before bedtime. 10.2 g 3 04/11/2022 Active Additional Information Patient taking differently:2 Puff InhalationBID PRN, Reported on 06/06/2023 Nitroglycerin 0.4 MG Sublingual Tablet Sublingual (Nitrostat) Place 1 Tablet under the tongue every 5 minutes as needed for Pain, Chest. up to 3 doses in 15 minutes 25 Tablet 11 04/18/2022 Active Tamsulosin HCl 0.4 MG Oral Capsule (Flomax) Take 1 Capsule by mouth in the morning. 30 Capsule 3 01/16/2023 Active Additional Information Patient taking differently:0.4 mg OralDAILY PRN, Reported on 06/06/2023 Famotidine 20 MG Oral Tablet (Pepcid) Take 1 tablet twice daily for persistent heartburn, acid reflux 180 Tablet 2 03/16/2023 Active Repatha SureClick 140 MG/ML Subcutaneous Solution Auto-injector (evolocumab)Indic ations:Dyslipidem ia, goal LDL below 70 Inject 140 mg under the skin every 14 days. Remove from refrigerator 30 minutes prior to injection. 6 mL 3 03/22/2023 Active Esomeprazole Magnesium 40 MG Oral Capsule Delayed Release Take 1 Capsule by mouth every evening. 0 Active Alendronate Sodium 70 MG Oral Tablet (Fosamax)Indicati ons:High risk for fracture due to osteoporosis by DEXA scan Take 1 Tablet by mouth once a week. with 8 oz. water 30 minutes before first meal of the day. Remain upright for 30 min after taking tablet 15 Tablet 1 04/26/2023 Active Montelukast Sodium 10 MG Oral Tablet (Singulair) Take 1 tablet daily each evening 90 Tablet 2 05/25/2023 Active Xolair 150 MG/ML Subcutaneous Solution Prefilled Syringe (Omalizumab)Indic ations:Elevated IgE level Inject 150 mg under the skin every 14 days. 6 mL 1 06/06/2023 Active Fluocinonide 0.05 % External Solution APPLY A FEW DROPS TO THE INVOLVED AREA TWICE A DAY 0 08/01/2021 4 Discontinu ed(Patient preference /discontin uation) documented as of this encounter (statuses as of 06/06/2023) Active Problems Problem Noted Date Diagnosed Date [...] as of this encounter (statuses as of 06/06/2023) Resolved Problems Problem Noted Date Diagnosed Date Resolved Date Prediabetes 06/06/2021 01/04/2023 Overview: Per Prediabetes protocol Overweight (BMI 25.0-29.9) 07/08/2020 0 01/15/2023 Severe persistent asthma without complication 08/26/19 20 12/12/2021 Mild intermittent asthma with exacerbation 06/26/2019 08/26/2019 GERD (gastroesophageal reflux disease) 12/25/2017 12/12/2018 documented as of this encounter (statuses as of 06/06/2023) Immunizations Name Administration Dates Next Due COVID-19 mRNA, LNP-s, No Pre serve, 2-Dose Series (Symphogen) 06/05/2020,05/15/2020 Covid-19, Mrna, Lnp-s, Pf, B ivalent, 30 Mcg, IM, 12 yrs and above (Symphogen) 02/10/2022 Pneumococcal Conjugate Vacc, 13 Valent (Prevnar) [...] Date Smoking Tobacco: Never Smokeless Tobacco: Never Tobacco Cessation:Counseling Given: Not Answered Comments:no passive smoke exposures Alcohol Use Standard Drinks/Week Comments No 0 [...] on file documented as of this encounter Last Filed Vital Signs Vital Sign Reading Time Taken Comments Blood Pressure 142/84 06/06/2023 2:40 PM EST Pulse 88 06/06/2023 2:40 PM EST Temperature - - Respiratory Rate 16 06/06/2023 2:40 PM EST Oxygen Saturation - - Inhaled Oxygen Concentration - - Weight 63.6 kg (140 lb 3.2 oz) 06/06/2023 2:40 P M EST Height - - Body Mass Index 26.06 05/29/2023 9:40 AM EST documented in this encounter Progress Notes * Travon Kruse, DO - 06/06/2023 3:00 PM EST Cardiology Outpatient Follow-up Nakul Palm is a 68 year old female who is seen for follow-up of coronary artery disease. HPI: This is a 68-year-old female with a positive coronary calcium score and statin intolerance. She hasbeen on a PCSK9 inhibitor now close to a year. She returned today for follow-up. She remains activeand has had no activity related chest pain. No progressive shortness of breath or orthopnea. No heart palpitations or tachycardia. Past Medical History: Diagnosis Date Chronic frontal sinusitis 12/25/2017 Chronic kidney disease, stage 3a 05/31/2020 Per CKD protocol Chronic rhinitis Dry eyes 08/26/2019 GERD (gastroesophageal reflux disease) 12/25/2017 High risk for fracture due to osteoporosis by DEXA scan 07/04/2019 Hyperlipidemia with target LDL less than 100 12/26/2017 Hyperparathyroidism, primary (HCC) 04/29/2020 Mild intermittent asthma with exacerbation 06/26/2019 Osteoporosis PSVT (paroxysmal supraventricular tachycardia) 06/02/2021 Sicca syndrome (HCC) 10/13/2020 Thalassemia 12/26/2017 Patient Active Problem List Diagnosis Code Chronic frontal sinusitis J32.1 Thalassemia D56.9 Dyslipidemia, goal LDL below 100 E78.5 Hiatal hernia with GERD and esophagitis K44.9, K21.00 High risk for fracture due to osteoporosis by DEXA scan M81.0 Allergic rhinitis J30.9 Dry eyes H04.123 Mouth lesion K13.70 Leg cramps R25.2 Hyperparathyroidism, primary (HCC) E21.0 Chronic kidney disease, stage 3a N18.31 Elevated coronary artery calcium score R93.1 Sicca syndrome (HCC) M35.00 PSVT (paroxysmal supraventricular tachycardia) I47.10 Severe persistent asthma with acute exacerbation J45.51 Statin intolerance Z78.9 Age-related osteoporosis without current pathological fracture M81.0 Past Surgical History: Procedure Laterality Date BREAST BIOPSY Right 2012 Benign BREAST BIOPSY Right 2017 Benign BREAST BIOPSY Right 02/01/2023 PATH pending BREAST LESION,OTHER,EXCISION Right 05/02/2023 EXCISION OF CYST OR TUMOR BREAST performed by Jayne Way MD at OR [facility] EGD, FLEXIBLE, DIAGNOSTIC N/A 10/15/2018 ESOPHAGOGASTRODUODENOSCOPY (EGD), FLEXIBLE, TRANSORAL, DIAGNOSTIC performed by Denton Solano DO at ENDOSCOPY [facility] EXC BREAST LESION RADMARK Right 05/02/2023 EXCISION OF BREAST LESION RADIOLOGICAL MARKER performed by Jayne Way MD at OR [facility] EXPLORE PARATHYROID GLANDS N/A 09/22/2020 PARATHYROIDECTOMY performed by Anatoliy Mcduffie MD at OR [facility] PARTIAL REMOVAL OF THYROID LOBE N/A 09/22/2020 PARTIAL THYROID LOBECTOMY performed by Anatoliy Mcduffie MD at OR [facility] SINUS SURGERY PROCEDURE NEC 2005 ? endoscopic sinus surgery; ? associated nasal surgery Family History Problem Relation Age of Onset Asthma Mother at age 69 Stroke Mother Diabetes Mother Hypertension Mother Other (bph) Father Arthritis Sister Arthritis Sister Arthritis Brother Arthritis Brother Arthritis Brother No Known Problems Son No Known Problems Son Breast Cancer No significant family history Social History Tobacco Use Smoking status: Never Smokeless tobacco: Never Tobacco comments: no passive smoke exposures Vaping Use Vaping Use: Never used Substance Use Topics Alcohol use: No Drug use: No Review of patient's allergies indicates: Allergen Reactions Morphine tachycardiac Current Outpatient Medications Medication Sig Dispense Refill Spacer/Aero-Hold Chamber Mask Use with inhaler 1 Each 0 Acetaminophen 325 MG Oral Tablet (Tylenol) as needed. Naproxen Sodium 220 MG Oral Capsule Take 1 Capsule by mouth every 12 hours as needed for Pain. Vitamin D3 125 MCG (5000 UT) Oral Capsule Take 1 Capsule by mouth in the morning. EPINEPHrine 0.3 MG/0.3ML Injection Solution Auto-injector (Autoinjector) For a severe reaction: Inject in outer thigh following instructions on package and go to the Emergency room. 2 Each 3 guaiFENesin ER 600 MG Oral Tablet Extended Release 12 Hour (Mucinex) Use 1-2 tablets every 12 hoursfor excessive chest mucus production (Patient taking differently: Take 2 Tablets by mouth at bedtime. Use 1-2 tablets every 12 hours for excessive chest mucus production) Cetirizine HCl 10 MG Oral Tablet (ZyrTEC) Take by mouth 1 Tablet in the morning AND 1 Tablet beforebedtime. Take one tablet daily for nasal allergy symptoms. (Patient taking differently: Take 1 Tablet by mouth as needed for Rhinitis. Take one tablet daily for nasal allergy symptoms) 60 Tablet 11 Levalbuterol Tartrate 45 MCG/ACT Inhalation Aerosol (Xopenex Hfa) Inhale 2 Puffs by mouth every 4 hours as needed for Wheezing or Shortness of Breath (cough). 45 g 3 Budesonide-Formoterol Fumarate 160-4.5 MCG/ACT Inhalation Aerosol (Symbicort) Inhale 2 Puffs by mouth in the morning and 2 Puffs before bedtime. (Patient taking differently: Inhale 2 Puffs by mouth 2times a day as needed.) 10.2 g 3 Nitroglycerin 0.4 MG Sublingual Tablet Sublingual (Nitrostat) Place 1 Tablet under the tongue every5 minutes as needed for Pain, Chest. up to 3 doses in 15 minutes 25 Tablet 11 Tamsulosin HCl 0.4 MG Oral Capsule (Flomax) Take 1 Capsule by mouth in the morning. (Patient takingdifferently: Take 1 Capsule by mouth daily as needed.) 30 Capsule 3 Famotidine 20 MG Oral Tablet (Pepcid) Take 1 tablet twice daily for persistent heartburn, acid reflux 180 Tablet 2 Repatha SureClick 140 MG/ML Subcutaneous Solution Auto-injector (evolocumab) Inject 140 mg under the skin every 14 days. Remove from refrigerator 30 minutes prior to injection. 6 mL 3 Esomeprazole Magnesium 40 MG Oral Capsule Delayed Release Take 1 Capsule by mouth every evening. Alendronate Sodium 70 MG Oral Tablet (Fosamax) Take 1 Tablet by mouth once a week. with 8 oz. water30 minutes before first meal of the day. Remain upright for 30 min after taking tablet 15 Tablet 1 Montelukast Sodium 10 MG Oral Tablet (Singulair) Take 1 tablet daily each evening 90 Tablet 2 Xolair 150 MG/ML Subcutaneous Solution Prefilled Syringe (Omalizumab) Inject 150 mg under the skin every 14 days. 6 mL 1 Ketotifen Fumarate 0.025 % Ophthalmic Solution (Zaditor) Use 1 drop in each eye twice daily as needed for allergic eye symptoms (Patient not taking: Reported on 06/06/2023) 5 mL 6 No current facility-administered medications for this visit. ROS: Review of Systems: See HPI for pertinent positives. All other review of systems is negative. PHYSICAL EXAMINATION BP 142/84 (BP Site: Left Arm, BP Position: Sitting, BP Cuff Size: Large) | Pulse 88 | Resp 16 | Wt 63.6 kg (140 lb 3.2 oz) | BMI 26.06 kg/m | BSA 1.66 m Body mass index is 26.06 kg/m. General: no acute distress and stated age Head: normocephalic, no masses, lesions, tenderness or abnormalities Eyes: conjunctiva are pink and non-injected, sclera clear Neck: supple, no adenopathy, no bruits, normal jugular venous pulse, no hepatojugular reflux Chest: normal shape and normal respiratory effort Lungs: clear to auscultation and percussion Cardiac Exam: - regular rate & rhythm, no murmurs gallops or rubs - normal S1, normal S2 Pulses: 2(+) throughout Abdomen: abdomen soft, non-tender, no abnormal masses and no hepatosplenomegaly Musculoskeletal: no gait disturbance, no joint inflammation, no deforming arthritis Extremities: no edema and no cyanosis Neuro: grossly normal exam Laboratory Data Review: Lipid Panel Results: Results for orders placed or performed in visit on 12/25/17 LIPID PANEL Result Value Ref Range HOURS FASTING 8 hours Triglycerides 183 <200 mg/dL Cholesterol 257 (H) <200 mg/dL HDL Cholesterol 55 >39 mg/dL Cholesterol-HDL Ratio 4.7 LDL Cholesterol 165 (H) 0 - 129 mg/dL Results for orders placed or performed in visit on 06/04/23 LIPID PANEL WITH DIRECT LDL IF TG IS HIGH Result Value Ref Range Triglycerides 177 (H) <=174 mg/dL Cholesterol 185 <200 mg/dL HDL Cholesterol 76 >49 mg/dL Non-HDL Cholesterol 109 <=159 mg/dL LDL Cholesterol 74 <=129 mg/dL Impression: 1. Chronic atypical chest pain - repeat nuclear stress testing in 2022 negative for inducible ischemia 2. Elevated coronary calcium score 3. Hiatal hernia 4. Hyperlipidemia with statin intolerance Plan: The patient is clinically doing well. She has had a marked improvement in her cholesterol with a Repatha that she will continue. I plan follow-up on an annual or as-needed basis. This chart was completed in part utilizing [employer] Speech Voice Recognition Software. Grammatical errors, random word insertions, prounoun errors, and incomplete sentences are an occasional consequence of this system due to software limitations, ambient noise, and hardware issues. Any formal questions or concerns about the content, text, or information contained within the body of this dictation should be directly addressed to the provider for clarification. I spent a total of 30-39 minutes (exact time 35 mins) on the date of service in preparation, delivery, and documentation of the care provided to Nakul Palm excluding any time spent in the performance of separately billed services. Travon Kruse DO Cardiology[address] [address] 06/06/2023 documented in this encounter Nursing Notes * Amber Pettit CMA - 06/06/2023 2:33 PM EST Examination Room: Name: Nakul Palm Date of : (1955). Reason for Visit: 6M f/u Interim Hospitalization(s): none Problems/Concerns: denies Chest Pain/SOB: Still has occasional CP, states before it was not as localized and now it is more apinprick that lasts a couple seconds. Denies unusual SOB. [facility] Discussed: Yes [facility] is a way you can talk to your provider online through e-mail. Would you like to sign up? I can activate it for you? ALREADY ACTIVE Patient was instructed to not get up on the exam table until directed and assisted by their provider; patient is to remain seated in the chair/ wheelchair/ exam table for fall prevention and safety reasons. Patient is aware to have assistance to step down off exam table with personnel. Patient voiced full comprehension of instructions. documented in this encounter Plan of Treatment Upcoming Encounters Date Type Department Care Team (Late st Contact Info) Description 06/15/2023 1:00 PM EST Office Visit [facility], [facility] [address] [facility] [address] [facility] [address] [address] 06/27/2023 1:00 PM EST Hem/Onc Treatment Hematology/Oncology Treatment, [place] [address] [place] [address] Nancy, Chair [address] Hem On[address] [place] [address] 07/17/2023 2:20 PM EDT Office Visit General Internal Medicine [facility] [place] [address] [facility] [place] [address] Kenzie Pacheco MD [address] [facility] [place] [address] 12/25/2023 11:30 AM EDT Imaging Radiology [facility] 1st Floor, [place] [address] [facility] [place] [address] 01/08/2024 1:15 PM EDT Office Visit Hematology/Oncology [facility] [place] [address] [facility] [place] [address] Hari Hinton MD [address] [facility] [place] [address] Health Maintenance Due Date Last Done Comments DTaP,Tdap,and Td Vaccines (1 - Tdap) 1973 Colonoscopy 1999 Fecal Occult Blood Test 1999 Sigmoidoscopy 1999 COVID-19 Vaccine ( season) 2022 02/10/2022, 06/05/2020, 05/15/2020 Influenza Vaccine (FLU shot) (#1) 2022 03/22/2022, 02/26/2021, 12/18/2019, Additional history exists Albumin/Creatinine Ratio 07/08/2023 07/07/2022, 05/24 DXA Scan 07/20/2023 07/19/2021, 07/02/2019 GFR 12/03/2023 06/04/2023, 06/2023, 03/27/2023, Additional history exists Depression Screening 01/16/2024 01/15/2023 Mammogram 01/16/2024 01/15/2023, 04/2022, 02/18/2021, Additional history exists CKD HGB USE SMARTSET 68890 04/25/202404/25, 03/27/2023, 07/07/2022, Additional history exists CKD PHOS USE SMARTSET 64004 06/04/202405/24, 07/07/2022, 12/10/2020, Additional history exists Cologuard 08/11/2025 08/11/2022, 07/22, 08/04/2022 Colorectal Cancer Screening 08/11/2025 Diabetes Screening 06/04/2026 06/04/2023, 0 2023, 03/27/2023, Additional history exists Zoster Vaccines Completed 01/16/2020, 06/26/2019 Pneumococcal Vaccine: 65+ Years Completed 10/13/2020, 12/18/2019 VITAMIN D LEVEL ONCE IN A LIFETIME-USE SMARTSET# [id number] Completed 12/01/2021, 08/03/2021, 06/02/2021, Additional history exists GARDASIL-HPV IMMUNIZATION SERIES Aged Out No longer eligible based on patient's age to complete this topic MENINGOCOCCAL (MENACTRA/MENVEO) Aged Out No longer eligible based on patient's age to complete this topic documented as of this encounter Medical Devices Not on filedocumented as of this encounter Visit Diagnoses Diagnosis Statin intolerance- Primary Other drug allergy Hyperlipidemia with target LDL less than 100 Other and unspecified hyperlipidemia documented in this encounter Advance Directives Latest Code Status on File Code Status Date Activated Date Inactivated Comments Full Code 05/02/2023 7:00 AM 05/02/2023 2:32 PM This order reflects the patients wishes and were consensually agreed upon. Question Answer Comments Discussion of Advance Directives occurred with: Patient Care Teams Hypertrichologist Relationship Specialty Start Date End Date Kenzie Pacheco MD [address] [facility] [place] [address] PCP - General Internal Medicine 06/26/19 documented as of this encounter"
--- OUTSIDE RECORDS SUMMARY | 2023-06-08 14:10 | External Medical Summary | Summary of Care ---
Author Name Unknown Organization [facility] Address [address] [place] [address] Phone [phone] Care Team Providers Care Mobile Application Development Lead Name Role Phone Kenzie Pacheco MD Primary Care Provider [phone] Reason for Visit * Reason Onset Date Comments Precert Future 06/01/2023 Reclast Encounter Details Date Type Department Care Team (Late st Contact Info) Description 06/01/2023 Telephone Hematology/Oncology [facility] [address] [facility] [place] [address] Hari Hinton MD [address] [facility] [place] [address] Precert Future (Reclast) Allergies Active Allergy Reactions Criticality Noted Date Comments Morphine 12/25/2017 tachycardiac documented as of this encounter (statuses as of 06/05/2023) Medications Medication Sig Dispensed Refills Start Date [...] as of this encounter (statuses as of 06/05/2023) Active Problems Problem Noted Date Diagnosed Date [...] as of this encounter (statuses as of 06/05/2023) Resolved Problems Problem Noted Date Diagnosed Date Resolved Date Prediabetes 06/06/2021 01/04/2023 Overview: Per Prediabetes protocol Overweight (BMI 25.0-29.9) 07/08/2020 0 01/15/2023 Severe persistent asthma without complication 08/26/19 20 12/12/2021 Mild intermittent asthma with exacerbation 06/26/2019 08/26/2019 GERD (gastroesophageal reflux disease) 12/25/2017 12/12/2018 documented as of this encounter (statuses as of 06/05/2023) Immunizations Name Administration Dates Next Due COVID-19 mRNA, LNP-s, No Pre serve, 2-Dose Series (pinnacle-ecs) 06/05/2020,05/15/2020 Covid-19, Mrna, Lnp-s, Pf, B ivalent, 30 Mcg, IM, 12 yrs and above (pinnacle-ecs) 02/10/2022 Pneumococcal Conjugate Vacc, 13 Valent (Prevnar) [...] encounter Miscellaneous Notes * Telephone Encounter - Lizette Jackson OSA - 06/05/2023 11:12 AM EST Called pt to schedule Offered appt for tomorrow but pt stated that she is having knee surgery and does not want to come in before hand. Pt is scheduled for 3/6 - per her pref and is aware and has no questions at this time * Addendum Note - Liz Banuelos RN - 06/05/2023 11:07 AM ESTAddended by: LIZ BANUELOS on: 06/05/2023 11:07 AM Modules accepted: Orders * Telephone Encounter - Liz Banuelos RN - 06/05/2023 11:05 AM EST Referral entered. Auth valid 06/06/23-06/06/24. Scheduling: please call patient to schedule 1 hour appt "reclast" (Jamaal). Thanks! * Telephone Encounter - Nathan Sandhu RN - 06/04/2023 2:45 PM EST Received approval for Reclast via fax. Sent to pre-cert to update referral. Once updated, we can schedule patient. * Telephone Encounter - Nathan Sandhu RN - 06/01/2023 12:20 PM EST Received order for Reclast as this is preferred over Prolia. [place] plan built and routed for signature. Creatine completed 04/25/23. Calcium completed 03/27/23. Vit D ordered by PCP. Dr. Hinton, would you like patient to have Vitamin D done prior to infusion? documented in this encounter Plan of Treatment Upcoming Encounters Date Type Department Care Team (Late st Contact Info) Description 06/06/2023 2:30 PM EST Office Visit Cardiology, [facility] [address] [facility] [place] [address] [address], [address] [place] [address] 06/15/2023 1:00 PM EST Office Visit Cardiology, [facility] [address] [facility] [place] [address] [address] [facility] Cardiology [facility] [address] [facility] [place] [address] 06/27/2023 1:00 PM EST Hem/Onc Treatment Hematology/Oncology Treatment, [place] [address] [place] [address] Nancy, Chair 10 Hem Onc [address] [place] [address] 07/17/2023 2:20 PM EDT Office Visit General Internal Medicine [facility] [place] [address] [facility] [place] [address] Kenzie Pacheco MD [address] [facility] [place] [address] 12/25/2023 11:30 AM EDT Imaging Radiology [facility] [address] [facility] [place] [address] 01/08/2024 1:15 PM EDT Office Visit Hematology/Oncology [facility] [place] [address] [facility] [place] [address] Hari Hinton MD [address] [facility] [place] [address] Pending Results Name Type Priority Associated Diagnoses Date /Time BASIC METABOLIC PANEL Lab Routine Age-related osteoporosis without current pathological fracture 06/04/2023 2:01 PM EST Scheduled Orders Name Type Priority Associated Diagnoses Orde r Schedule BASIC METABOLIC PANEL Lab Routine Age-related osteoporosis without current pathological fracture Expected: 06/05/2023, Expires: 06/05/2024 Health Maintenance Due Date Last Done Comments DTaP,Tdap,and Td Vaccines (1 - Tdap) 1974 Colonoscopy 1999 Fecal Occult Blood Test 1999 Sigmoidoscopy 1999 COVID-19 Vaccine (4 - season) 2022 02/10/2022, 06/05/2020, 05/15/2020 Influenza Vaccine (FLU shot) (#1) 2022 03/22/2022, 02/26/2021, 12/18/2019, Additional history exists Albumin/Creatinine Ratio 07/08/2023 07/07/2022, 05/24 DXA Scan 07/20/2023 07/19/2021, 07/02/2019 GFR 10/24/2023 2023, 1208/2022, 07/07/2022, Additional history exists Depression Screening 01/16/2024 01/15/2023 Mammogram 01/16/2024 01/15/2023, 0904/2022, 02/18/2021, Additional history exists CKD HGB USE SMARTSET 87971 04/25/202404/25, 03/27/2023, 07/07/2022, Additional history exists CKD PHOS USE SMARTSET 15635 06/04/202405/24, 07/07/2022, 12/10/2020, Additional history exists Cologuard 08/11/2025 08/11/2022, 07/22, 08/04/2022 Colorectal Cancer Screening 08/11/2025 Diabetes Screening 2026 2023, 1 05/28/2022, 12/22/2022, Additional history exists Zoster Vaccines Completed 01/16/2020, 06/26/2019 Pneumococcal Vaccine: 65+ Years Completed 10/13/2020, 12/18/2019 VITAMIN D LEVEL ONCE IN A LIFETIME-USE SMARTSET# 60200 Completed 12/01/2021, 08/03/2021, 06/02/2021, Additional history exists GARDASIL-HPV IMMUNIZATION SERIES Aged Out No longer eligible based on patient's age to complete this topic MENINGOCOCCAL (MENACTRA/MENVEO) Aged Out No longer eligible based on patient's age to complete this topic documented as of this encounter Medical Devices Not on filedocumented as of this encounter Visit Diagnoses Diagnosis Age-related osteoporosis without current pathological fracture- Primary Senile osteoporosis documented in this encounter Advance Directives Latest Code Status on File Code Status Date Activated Date Inactivated Comments Full Code 05/02/2023 7:00 AM 05/02/2023 2:32 PM This order reflects the patients wishes and were consensually agreed upon. Question Answer Comments Discussion of Advance Directives occurred with: Patient Care Teams Mobile Application Development Lead Relationship Specialty Start Date End Date Kenzie Pacheco MD [address] [place] [address] PCP - General Internal Medicine 06/26/19 documented as of this encounter
--- OUTSIDE RECORDS SUMMARY | 2023-06-08 14:10 | External Medical Summary | Summary of Care ---
Author Name Unknown Organization [facility] Address [address] [place] [address] Phone [phone] Care Team Providers Care Edge Dyer Name Role Phone Kenzie Pacheco MD Primary Care Provider [phone] Reason for Visit * Reason Onset Date Comments Precert Future 06/01/2023 Reclast Encounter Details Date Type Department Care Team (Late st Contact Info) Description 06/01/2023 Telephone Hematology/Oncology [facility] [address] [facility] [place] [address] Hari Hinton MD [address] [facility] [place] [address] Precert Future (Reclast) Allergies Active Allergy Reactions [...] mRNA, LNP-s, No Pre serve, 2-Dose Series (CloudSponge) 06/05/2020,05/15/2020 Covid-19, Mrna, Lnp-s, Pf, B ivalent, 30 Mcg, IM, 12 yrs and above (CloudSponge) 02/10/2022 Pneumococcal Conjugate Vacc, 13 Valent (Prevnar) [...] as of this encounter Miscellaneous Notes * Addendum Note - Liz aBnuelos RN - 06/05/2023 11:07 AM ESTAddended by: [...] Reclast as this is preferred over Prolia. [facility] plan built and routed for signature. Creatine completed 04/25/23. Calcium completed 03/27/23. Vit D ordered by PCP. Dr. Hinton, would you like patient to have Vitamin D done prior to infusion? documented in this encounter Plan of Treatment Upcoming Encounters Date Type Department Care Team (Late st Contact Info) Description 06/06/2023 2:30 PM EST Office Visit Cardiology, [facility] [address] [place] [address] [address], [address] [facility] [place] [address] 06/15/2023 1:00 PM EST Office Visit Cardiology, [facility] [address] [facility] [place] [address] Alex [facility] Cardiology [address] [place] [address] 07/17/2023 2:20 PM EDT Office Visit General Internal Medicine [facility] [address] [facility] [place] [address] Kenzie Pacheco MD [address] [facility] [place] [address] 12/25/2023 11:30 AM EDT Imaging Radiology [facility] [facility] [address] [facility] [place] [address] 01/08/2024 1:15 PM EDT Office Visit Hematology/Oncology [facility] [address] [facility] [place] [address] Hari Hinton MD [address] [facility] [place] [address] Scheduled Orders Name Type Priority Associated Diagnoses Orde r Schedule BASIC METABOLIC PANEL Lab Routine Age-related osteoporosis without current pathological fracture Expected: 06/05/2023, Expires: 06/05/2024 Health Maintenance Due Date Last Done Comments DTaP,Tdap,and Td Vaccines (1 - Tdap) 1974 Colonoscopy 1999 Fecal Occult Blood Test 1999 Sigmoidoscopy 1999 COVID-19 Vaccine ( - season) 2022 02/10/2022, 06/05/2020, 05/15/2020 Influenza Vaccine (FLU shot) (#1) 2022 03/22/2022, 02/26/2021, 12/18/2019, Additional history exists Albumin/Creatinine Ratio 07/08/2023 07/07/2022, 05/24 DXA Scan 07/20/2023 07/19/2021, 07/02/2019 GFR 10/24/2023 2023, 08/2022, 07/07/2022, Additional history exists Depression Screening 01/16/2024 01/15/2023 Mammogram 01/16/2024 01/15/2023, 04/2022, 02/18/2021, Additional history exists CKD HGB USE SMARTSET 78980 04/25/202404/25, 03/27/2023, 07/07/2022, Additional history exists CKD PHOS USE SMARTSET 48382 06/04/202405/24, 07/07/2022, 12/10/2020, Additional history exists Cologuard 08/11/2025 08/11/2022, 07/22, 08/04/2022 Colorectal Cancer Screening 08/11/2025 Diabetes Screening 2026 2023, 1 05/28/2022, 12/22/2022, Additional history exists Zoster Vaccines Completed 01/16/2020, 06/26/2019 Pneumococcal Vaccine: 65+ Years Completed 10/13/2020, 12/18/2019 VITAMIN D LEVEL ONCE IN A LIFETIME-USE SMARTSET# 47037 Completed 12/01/2021, 08/03/2021, 06/02/2021, Additional history exists [...] Advance Directives occurred with: Patient Care Teams Edge Dyer Relationship Specialty Start Date End Date Kenzie Pacheco MD [address] [facility] [place] [address] PCP - General Internal Medicine 06/26/19 documented as of this encounter
--- OUTSIDE RECORDS SUMMARY | 2023-06-08 14:10 | External Medical Summary | Continuity of Care Document ---
Author Name Unknown Organization [address] Address [address] [place] [id number] Care Team Providers Care Esthetician Name Role Phone Rosemary Henley Primary Care Physician [phone] Encounter PSYCHIATRIC FINNBR [id number] Date(s): 06/04/23 - 06/04/[address] [place] [address], [address] [place] [address] [phone] Encounter Diagnosis Body mass index [BMI] 27.0-27.9, adult(Discharge Diagnosis) - 06/04/23 Right knee meniscal tear(Discharge Diagnosis) - 06/04/23 Pre-op evaluation(Discharge Diagnosis) - 06/04/23 Discharge Disposition: Home or Self Care Attending Physician: MD Henley Ravishankar E Referring Physician: MD Henley Ravishankar E Allergies, Adverse Reactions, Alerts Substance Reaction Severity Status PCN (penicillin) Tachycardia Moderate Active Assessment and Plan Extracted from: Title:Office Visit Note Author:DO [facility] Date:06/04/23 1.Right knee meniscal tear Reviewed patient labs EKG CXR, nothing that would prevent her from having surgery, however had slightly abnormal CBC which is likely related to her knownhistory of thalassemia. [facility] serious complication 1.6%, any complication 2.1% Patient optimized for surgery from a cardiac and pulmonary standpoint. 2.Pre-op evaluation - As above ATTENDING PHYSICIAN ATTESTATION: I saw the patient and confirmed levine portions of the history and physical exam and agree with the resident impression and plan as above. Dr. Rosemary Henley MD Medications alendronate 70 mg oral tablet Start: 01/12/23 13:49:00 EDT, 1 tab, PO, q7days Start Date: 01/12/23 Status: Ordered ibuprofen Start: 05/19/20 8:44:00 EST, PO, PRN: as needed for pain Start Date: 05/19/20 Status: Ordered NexIUM 40 mg oral delayed release capsule Start: 05/19/20 8:43:00 EST, 1 cap, PO, Daily Start Date: 05/19/20 Status: Ordered Repatha SureClick 140 mg/mL subcutaneous solution Start: 01/12/23 13:48:00 EDT, 140 mg =, subQ, [id number] Start Date: 01/12/23 Status: Ordered Singulair 10 mg oral tablet Start: 09/26/21 11:34:00 EDT, 10 Unknown, Oral, 4 Refill(s), Take 1 Tab by mouth at bedtime. Start Date: 09/26/21 Status: Ordered Tylenol Start: 05/19/20 8:44:00 EST, PO, PRN: as needed for pain Start Date: 05/19/20 Status: Ordered Xolair Prefilled Syringe 150 mg/mL subcutaneous solution Start: 09/26/21 11:35:00 EDT, 2 mL Start Date: 09/26/21 Status: Ordered Mental Status 06/04/23 Barriers to Learning one year None evide nt Mandatory Health Literacy Documentation Yes Health Literacy Communication Barriers N ever Primary Language French Problem List Condition Confirmation Course Effective Dates Status Health St atus Informant Back pain Confirmed Active Chronic pain syndrome Confirmed Active GERD (gastroesophageal reflux disease) Confirmed Active Hip pain Confirmed Active History of lumbar fusion Confirmed Active Sacroiliitis Confirmed Active Bilateral hand numbness Confirmed Active Diagnosis Diagnosis Type Effective Dates Health Status Clinical Service Informant Body mass index [BMI] 27.0-27.9, adult Discharge Diagnosis 06/04/23 Non-Specified Right knee meniscal tear Discharge Diagnosis 06/04/23 Pre-op evaluation Discharge Diagnosis 06/04/23 Procedures Procedure Date Related Diagnosis Body Site Status Right knee 1 11/30/22 Completed Plain X-ray of left hand 2 06/24/20 Completed Medial meniscus part Comp leted 1Arthroscopy of right knee. [address] [place] [address] Impression: 1. Mild degenerative change. No fractures or dislocations Vital Signs Most recent to oldest [Reference Range]: 1 Height 152.7 cm (06/04/23 1:14 PM) Patient Weight 65 kg (06/04/23 1:14 PM) Body Mass Index 27.88 kg/m2 (06/04/23 1:14 PM) Temperature [36.5-37.9 DegC] 36.4 DegC *LOW* (06/04/23 1:14 PM) Heart Rate 86 bpm (06/04/23 1:14 PM) Respiratory Rate 16 br/min (06/04/23 1:14 PM) Blood Pressure 132/68mmHg (06/04/23 1:14 PM) Cuff Pulse Pressure 64 mmHg (06/04/23 1:14 PM) Social History Social History Type Response Smoking Status Never smoked cigaret shamika Sex Female FCM Outpt Note * MD Kale, Rosemary E: MODIFY MD Kale, Rosemary Savage: MODIFY Event Display: FCM Outpt Note Authored Date: [id number] Chief Complaint right knee surgery- Jun 08- Dr. Wilson at [facility] History of Present Illness 68yo Female here for preop clearance for right knee surgery 06/08 total replacement Already had EKG, blood tests, CXRnot on blood thinners. Surgeon is Dr. Wilson Had previous surgery on right knee, tolerated anesthesia well Knows to avoid ibuprofen, using tylenol Review of Systems Negative Fever chills Negative Headache dizziness blurry vision tinnitus Negative Chest pain SOB palpitations Negative Nausea vomitting diarrhea constipation abd pain Negative Numbness tingling muscle weakness Negative Rash swelling Physical Exam Vitals & Measurements T:36.4C HR:86(Monitored) RR:16 BP:132/68 SpO2:96% HT:152.7cm WT:65kg WT:65.000kg(Dosing) BMI:27.88 PHQ2 Data(Data Documented on:06/04/2023 13:14) Emotional health assessment NEGATIVE General: Well appearing age appropriate calm cooperative Heart: RRR, +S1 S2, no murmurs/rubs/gallops Lungs: CTA b/l, no wheezes/rales/rhonchi Assessment/Plan 1.Right knee meniscal tear Reviewed patient labs EKG CXR, nothing that would prevent her from having surgery, however had slightly abnormal CBC which is likely related to her knownhistory of thalassemia. [facility] serious complication 1.6%, any complication 2.1% Patient optimized for surgery from a cardiac and pulmonary standpoint. 2.Pre-op evaluation - As above ATTENDING PHYSICIAN ATTESTATION: I saw the patient and confirmed levine portions of the history and physical exam and agree with the resident impression and plan as above. Dr. Rosemary Henley MD Problem List/Past Medical History Ongoing Back pain Bilateral hand numbness Chronic pain syndrome GERD (gastroesophageal reflux disease) Hip pain History of lumbar fusion Sacroiliitis Procedure/Surgical History Right knee (11/30/2022)Plain X-ray of left hand (06/24/2020)Medial meniscus part Medications acetaminophen(Tylenol), PO, PRN alendronate(alendronate 70 mg oral tablet), 70 mg= 1 tab, PO, q7days esomeprazole(NexIUM 40 mg oral delayed release capsule), 40 mg= 1 cap, PO, Daily evolocumab(Repatha SureClick 140 mg/mL subcutaneous solution), 140 mg, subQ, [id number] ibuprofen, PO, PRN montelukast(Singulair 10 mg oral tablet) omalizumab(Xolair Prefilled Syringe 150 mg/mL subcutaneous solution) Allergies PCN (penicillin) (Moderate)Tachycardia Social History Smoking Status Never smoked cigarettes Alcohol - Denies Alcohol Use 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 Hypertension: Mother. Stroke: Mother. Type II diabetes mellitus: Mother. Health Status Family Member(s) Recommendations Health Maintenance Pending(in the next year) OverDue Adult Influenza Vaccine due10/20/22and every 1year Breast Cancer Screening due02/22/23and every 731day Due Adult COVID-19 Vaccination due06/04/23Unknown Frequency Adult Social Determinants of Health Screening due06/04/23Unknown Frequency Adult Tdap/Td Vaccine due06/04/23Unknown Frequency Colorectal Cancer Screening due06/04/23Unknown Frequency Hepatitis C Screening due06/04/23One-time only Lipid Screening due06/04/23Unknown Frequency Medicare Annual Wellness Visit due06/04/23and every 1year Osteoporosis Screening due06/04/23One-time only Pneumococcal Vaccine Older Adults due06/04/23One-time only Shingles Vaccine due06/04/23One-time only Satisfied(in the past 1 year) Satisfied Body Mass Index on06/04/23.Satisfied by KAITLIN Moore Angela Electronic Signature on File Electronically Reviewed/Signed by: Traci Mcleod DO Author Signature Dt/Tm:06/04/2023 01:40 PM Resident Department of Family Medicine Electronically Reviewed/Signed by: Rosemary Henley MD Cosigner Signature Dt/Tm: 06/04/2023 01:47PM Department of Family Medicine AD Patient Care team information Care Team Personnel Name: MD Henley Ravishankar E Position: Physician Member Role: Primary Care Provider Address: Address: [address] [place] [address] Name: Rich Vergara Position: HIS Supervisor_P Member Role: HIS Lifetime
--- OUTSIDE RECORDS SUMMARY | 2023-06-08 14:10 | External Medical Summary | Summary of Care ---
Author Name Unknown Organization [facility] Address [address] [place] [address] Phone [phone] Care Team Providers Care Building Associate Name Role Phone Kenzie Pacheco MD Primary Care Provider [phone] Reason for Visit * Reason Comments Dosage Adjustment Via Phone (anticoag Cl inic) Encounter Details Date Type Department Care Team (Late st Contact Info) Description 06/06/2023 2:00 PM [facility] Telemedicine Pulmonary Medicine, [place] [address] [place] [address] [place], Pharmacist Pulmonary [address] [place] [address] Elevated IgE level* Allergies Active Allergy Reactions Criticality Noted Date [...] Additional Information Patient not taking.Reported on 01/15/2023 Tamsulosin HCl 0.4 MG Oral Capsule (Flomax) [...] 14 days. 6 mL 1 06/06/2023 Active Xolair 150 MG/ML Subcutaneous Solution Prefilled Syringe (Omalizumab)Indic ations:Elevated IgE level Inject 150 mg (1 syringe) under the skin every 14 days. 6 mL 3 11/29/2022 4 Discontinue d(Refill) documented as of this encounter (statuses as [...] mRNA, LNP-s, No Pre serve, 2-Dose Series ([employer]) 06/05/2020,05/15/2020 Covid-19, Mrna, Lnp-s, Pf, B ivalent, 30 Mcg, IM, 12 yrs and above ([employer]) 02/10/2022 Pneumococcal Conjugate Vacc, 13 Valent (Prevnar) [...] on file documented as of this encounter Progress Notes * DeshawnKatherin saavedra, [facility] - 06/06/2023 2:02 PM EST Medication Therapy Disease Management - Asthma Biologics Follow-Up Assessment After connecting to the patient via telephone, the patient was identified by name and date of . Patient was then informed that this was a telephone call only visit. The patient agreed to participate. Visit Disposition: Routine follow-up Total call duration was 5 minutes. Interval History: Nakul Palm is an 68 year old old female with severe persistent asthma who returns to the Medication Therapy Disease Management Clinic for follow-up. Current Asthma Medications: Controller(s): - Symbicort 160-4.5 mcg/act, 2 puffs BID - Montelukast 10 mg PO daily Quick-relief: Biologic History: Drug: Omalizumab (Xolair) 150mg every 2 weeks Start Date: 11/2020 Biologic Tolerability: Medication intolerance: no Symptom History Since Last MTDM Review: Symptoms are gradually improving. Exacerbation(s) requiring oral corticosteroids in the past 12 months (or since biologic start): no Exacerbation(s) requiring ER utilization or hospitalization in the past 12 months (or since biologic start): no Previously identified asthma triggers: humidity Asthma Control Test (ACT): Asthma Control Test (ACT) Results 09/26/2022 10:19 Asthma Control Test In the past 4 weeks, how much of the time did your asthma keep you from getting as much done at work, school or at home? (2) Most of the time During the past 4 weeks, how often have you had shortness of breath? (3) 3 to 6 times a week During the past 4 weeks, how often did your asthma symptoms (wheezing, coughing, shortness of breath, chest tightness or pain) wake you up at night or earlier than usual in the morning? (3) Once a week During the past 4 weeks, how often have you used your rescue inhaler or nebulizer medication (such as albuterol)? (3) 2 or 3 times per week How would you rate your asthma control during the past 4 weeks? (3) Somewhat controlled Total ACT Adult Score 14 (BPA) Total ACT Child Score Incomplete (BPA) Assessment & Plan: Asthma Medication Recommendations: Based on the information above is appropriate to continue biologic therapy. 2. Administration plan: - Patient will continue self-injection at home. - Patient aware of [facility] providing medication ([facility]) and has pharmacy contact information. - Reviewed appropriate medication storage and subQ administration technique - Patient demonstrated understanding of appropriate technique and is comfortable proceeding with self-injection - Confirmed EpiPen available and within date 3. Continue the following Asthma Regimen: Controller(s): - Symbicort 160-4.5 mcg/act, 2 puffs BID - Montelukast 10 mg PO daily Quick-relief: 4. Follow up: Next follow up appointment with pharmacist will be scheduled for: As needed Return to clinic: No follow up scheduled - last seen by Pulmonolgy 09/26/2022 Katherin Main [facility] Clinical Pharmacist Medication Therapy Disease Management 06/06/2023, 2:02 PM documented in this encounter Plan of Treatment Upcoming Encounters Date Type Department Care Team (Late st Contact Info) Description 06/06/2023 2:30 PM EST Office Visit Cardiology [facility] [address] [place] [address] Tarvon Kruse DO [address] [place] [address] Arrived 06/15/2023 1:00 PM EST [facility] [address] [place] [address] [facility] [address] [place] [address] 06/27/2023 1:00 PM EST Hem/Onc Treatment Hematology/Oncology Treatment, [place] [address] [place] [address] Nancy, Chair [address] [facility] [address] 07/17/2023 2:20 PM EDT Office Visit General Internal Medicine [facility] 200 [facility] [place] [address] Kenzie Pacheco MD 200 [facility] [place] [address] 12/25/2023 11:30 AM EDT Imaging Radiology [address], [place] 132 [facility] [place] [address] 01/08/2024 1:15 PM EDT Office Visit Hematology/Oncology [facility] [place] [address] [facility] [place] [address] Hari Hinton MD [address] [facility] [place] [address] Health Maintenance Due Date Last Done Comments [...] Additional history exists CKD HGB USE SMARTSET 87195 04/25/202404/25, 03/27/2023, 07/07/2022, Additional history exists CKD PHOS USE SMARTSET 05286 06/04/202405/244, 07/07/2022, 12/10/2020, Additional history exists Cologuard 08/11/2025 08/11/2022, 07/22, 08/04/2022 Colorectal Cancer Screening 08/11/2025 Diabetes Screening 06/04/2026 06/04/2023, 0 2023, 03/27/2023, Additional history exists Zoster Vaccines Completed 01/16/2020, 06/26/2019 Pneumococcal Vaccine: 65+ Years Completed 10/13/2020, 12/18/2019 VITAMIN D LEVEL ONCE IN A LIFETIME-USE SMARTSET# 04738 Completed 12/01/2021, 08/03/2021, 06/02/2021, Additional history exists GARDASIL-HPV IMMUNIZATION SERIES Aged Out No longer eligible based on patient's age to complete this topic MENINGOCOCCAL (MENACTRA/MENVEO) Aged Out No longer eligible based on patient's age to complete this topic documented as of this encounter Medical Devices Not on filedocumented as of this encounter Visit Diagnoses Diagnosis Elevated IgE level- Primary Other and unspecified nonspecific immunological findings documented in this encounter Advance Directives Latest Code Status on File Code Status Date Activated Date Inactivated Comments Full Code 05/02/2023 7:00 AM 05/02/2023 2:32 PM This order reflects the patients wishes and were consensually agreed upon. Question Answer Comments Discussion of Advance Directives occurred with: Patient Care Teams Building Associate Relationship Specialty Start Date End Date Kenzie Pacheco MD [address] [facility] [place] [address] PCP - General Internal Medicine 06/26/19 documented as of this encounter
--- OUTSIDE RECORDS SUMMARY | 2023-06-08 14:11 | External Medical Summary ---
Author Name Unknown Address Unknown Organization K09:[facility] [place] [address] Laboratory Report Ordering Provider Test Date Status MONSERRAT WILSON 06/04/2023 14:01:48 Final Observation Date Value Abnormality Reference (Units ) Status Phosphate 06/04/2023 14:01:48 4.5 2.5-4.8 (m g/dL) Final Performing Location [facility] [place] [address]
--- OUTSIDE RECORDS SUMMARY | 2023-06-08 14:11 | External Medical Summary ---
Author Name Unknown Address Unknown Organization K01:[facility] - [address] [facility] [address] Laboratory Report Ordering Provider Test Date Status MT MARTIN 06/04/2023 14:01:48 Final Observation Date Value Abnormality Reference (Units ) Status Triglyceride 06/04/2023 14:01:48 177 Above high normal <=174 (mg/dL) Final Triglyceride Reference Range s (mg/dL):
<150 Acceptable
150-174 Borderline high
175-499 High
>=500 Very high Cholesterol 06/04/2023 14:01:48 185 <200 (mg /dL) Final Total Cholesterol Reference Ranges (mg/dL):
<200 Desirable
200-239 Borderline high
>=240 High HDL 06/04/2023 14:01:48 76 >49 (mg/dL ) Final HDL Cholesterol Reference Ra nges (mg/dL):
>=60 High (Desirable)
<50 Low (Undesirable) For Females
<40 Low (Undesirable) For Males NON-HDL CHOLESTEROL 06/04/2023 14:01:48 109 <=159 (mg/dL) Final Non-HDL Cholesterol Referenc e Range (mg/dL):
<100 Target level for high risk ASCVD patient
<130 Optimal for general population
130-159 Near optimal for general population
160-189 Borderline High
190-219 High
>=220 Very High LDL, (calculated) 06/04/2023 14:01:48 74 <= 129 (mg/dL) Final LDL Cholesterol Reference Ra nges (mg/dL):
<70 Target level for high risk ASCVD patient
<100 Optimal for general population
100-129 Near optimal for general population
130-159 Borderline high
160-189 High
>=190 Very high Performing Location LABORATORY [facility] - [address] [facility] [address]
--- OUTSIDE RECORDS SUMMARY | 2023-06-08 14:11 | External Medical Summary | Summary of Care ---
Author Name Unknown Organization [facility] Address [address] [place] [address] Phone [phone] Care Team Providers Care Conservation Science Officer Name Role Phone Kenzie Pacheco MD Primary Care Provider [phone] Encounter Details Date Type Department Care Team (Late st Contact Info) Description 05/31/2023 Orders Only PATIENT PORTAL DO NOT DELETE THIS DEPT USED BY [place] [id number] Allergies Active Allergy Reactions Criticality Noted Date Comments Morphine 12/25/2017 tachycardiac documented as of this encounter (statuses as of 05/31/2023) Medications Medication Sig Dispensed Refills Start Date [...] as of this encounter (statuses as of 05/31/2023) Active Problems Problem Noted Date Diagnosed Date [...] as of this encounter (statuses as of 05/31/2023) Resolved Problems Problem Noted Date Diagnosed Date Resolved Date Prediabetes 06/06/2021 01/04/2023 Overview: Per Prediabetes protocol Overweight (BMI 25.0-29.9) 07/08/2020 0 01/15/2023 Severe persistent asthma without complication 08/26/19 20 12/12/2021 Mild intermittent asthma with exacerbation 06/26/2019 08/26/2019 GERD (gastroesophageal reflux disease) 12/25/2017 12/12/2018 documented as of this encounter (statuses as of 05/31/2023) Immunizations Name Administration Dates Next Due COVID-19 mRNA, LNP-s, No Pre serve, 2-Dose Series ([employer]) 06/05/2020,05/15/2020 Covid-19, Mrna, Lnp-s, Pf, B ivalent, 30 Mcg, IM, 12 yrs and above (Pfizer) 02/10/2022 Pneumococcal Conjugate Vacc, 13 Valent (Prevnar) [...] on file documented as of this encounter Plan of Treatment Upcoming Encounters Date Type Department Care Team (Late st Contact Info) Description 06/06/2023 2:30 PM EST Office Visit Cardiology, [facility] [address] [place] [address] Travon Kruse DO [address] [place] [address] 06/15/2023 1:00 PM EST Office Visit Cardiology, [facility] [address] [place] [address] [facility] Cardiology [facility] [address] [place] [address] 07/17/2023 2:20 PM EDT Office Visit General Internal Medicine [facility] 200 [facility] [place] [address] Kenzie Pacheco MD 200 [facility] [place] [address] 12/25/2023 11:30 AM EDT Imaging Radiology [address] [place] [place] [address] 01/08/2024 1:15 PM EDT Office Visit Hematology/Oncology [facility] 200 [facility] [place] [address] Hari Hinton MD 200 [facility] [place] [address] Health Maintenance Due Date Last Done Comments DTaP,Tdap,and Td Vaccines (1 - Tdap) 1974 Colonoscopy 1999 Fecal Occult Blood Test 1999 Sigmoidoscopy 1999 COVID-19 Vaccine (4 - 2022-24 season) 2022 02/10/2022, 06/05/2020, 05/15/2020 Influenza Vaccine (FLU shot) (#1) 2022 03/22/2022, 02/26/2021, 12/18/2019, Additional history exists Albumin/Creatinine Ratio 07/08/2023 07/07/2022, 05/24 CKD PHOS USE SMARTSET 41440 07/08/202306/21, 12/10/2020, 12/26/2019 DXA Scan 07/20/2023 07/19/2021, 07/02/2019 GFR 10/24/2023 2023, 12/0 08/2022, 07/07/2022, Additional history exists Depression Screening 01/16/2024 01/15/2023 Mammogram 01/16/2024 01/15/2023, 09/0 04/2022, 02/18/2021, Additional history exists CKD HGB USE SMARTSET 28295 04/25/202404/25, 03/27/2023, 07/07/2022, Additional history exists Cologuard 08/11/2025 08/11/2022, 07/22, 08/04/2022 Colorectal Cancer Screening 08/11/2025 Diabetes Screening 2026 2023, 1 05/28/2022, 12/22/2022, Additional history exists Zoster Vaccines Completed 01/16/2020, 06/26/2019 Pneumococcal Vaccine: 65+ Years Completed 10/13/2020, 12/18/2019 VITAMIN D LEVEL ONCE IN A LIFETIME-USE SMARTSET# [id number] Completed 12/01/2021, 08/03/2021, 06/02/2021, Additional history exists [...] Advance Directives occurred with: Patient Care Teams Conservation Science Officer Relationship Specialty Start Date End Date Kenzie Pacheco MD [address] [facility] [place] [address] PCP - General Internal Medicine 06/26/19 documented as of this encounter
--- OUTSIDE RECORDS SUMMARY | 2023-06-08 14:11 | External Medical Summary | Summary of Care ---
Author Name Unknown Organization [facility] Address [address] [place] [address] Phone [phone] Care Team Providers Care Painting Manager Name Role Phone Kenzie Pacheco MD Primary Care Provider [phone] Reason for Visit * Reason Onset Date Comments Precert Future 06/01/2023 Reclast Encounter Details Date Type Department Care Team (Late st Contact Info) Description 06/01/2023 Telephone Hematology/Oncology [facility] [address] [place] [facility] [place] [address] Hari Hinton MD [address] [place] [facility] [place] [address] Precert Future (Reclast) Allergies Active Allergy Reactions Criticality Noted Date Comments Morphine 12/25/2017 tachycardiac documented as of this encounter (statuses as of 06/01/2023) Medications Medication Sig Dispensed Refills Start Date [...] as of this encounter (statuses as of 06/01/2023) Active Problems Problem Noted Date Diagnosed Date [...] as of this encounter (statuses as of 06/01/2023) Resolved Problems Problem Noted Date Diagnosed Date Resolved Date Prediabetes 06/06/2021 01/04/2023 Overview: Per Prediabetes protocol Overweight (BMI 25.0-29.9) 07/08/2020 0 01/15/2023 Severe persistent asthma without complication 08/26/19 20 12/12/2021 Mild intermittent asthma with exacerbation 06/26/2019 08/26/2019 GERD (gastroesophageal reflux disease) 12/25/2017 12/12/2018 documented as of this encounter (statuses as of 06/01/2023) Immunizations Name Administration Dates Next Due COVID-19 mRNA, LNP-s, No Pre serve, 2-Dose Series ([employer]) 06/05/2020,05/15/2020 Covid-19, Mrna, Lnp-s, Pf, B ivalent, 30 Mcg, IM, 12 yrs and above ([employer]) 02/10/2022 Pneumococcal Conjugate Vacc, 13 Valent (Prevnar) [...] Reclast as this is preferred over Prolia. [place] plan built and routed for signature. Creatine completed 04/25/23. Calcium completed 03/27/23. Vit D ordered by PCP. Dr. Hinton, would you like patient to have Vitamin D done prior to infusion? documented in this encounter Plan of Treatment Upcoming Encounters Date Type Department Care Team (Late st Contact Info) Description 06/06/2023 2:30 PM EST Office Visit Cardiology, [facility] [address] [place] [address] Travon Kruse DO [address] [place] [address] 06/15/2023 1:00 PM EST Office Visit Cardiology, [facility] [address] [place] [address] [facility] Cardiology [facility] 132 [facility] [place] [address] 07/17/2023 2:20 PM EDT Office Visit General Internal Medicine [facility] [address] [place] [address] Kenzie Pacheco MD [address] [place] [place] [address] 12/25/2023 11:30 AM EDT Imaging Radiology [facility] [address] [place] [address] 01/08/2024 1:15 PM EDT Office Visit Hematology/Oncology [facility] [address] [place] [address] Hari Hinton MD [address] [place] [address] [address] Health Maintenance Due Date Last Done Comments DTaP,Tdap,and Td Vaccines (1 - Tdap) 1974 Colonoscopy 1999 Fecal Occult Blood Test 1999 Sigmoidoscopy 1999 COVID-19 Vaccine (4 - 2022- season) 2022 02/10/2022, 06/05/2020, 05/15/2020 Influenza Vaccine (FLU shot) (#1) 2022 03/22/2022, 02/26/2021, 12/18/2019, Additional history exists Albumin/Creatinine Ratio 07/08/2023 07/07/2022, 05/24 CKD PHOS USE SMARTSET 30639 07/08/202306/21, 12/10/2020, 12/26/2019 DXA Scan 07/20/2023 07/19/2021, 07/02/2019 GFR 10/24/2023 2023, 1208/2022, 07/07/2022, Additional history exists Depression Screening 01/16/2024 01/15/2023 Mammogram 01/16/2024 01/15/2023, 0904/2022, 02/18/2021, Additional history exists CKD HGB USE SMARTSET 89483 04/25/202404/25, 03/27/2023, 07/07/2022, Additional history exists Cologuard 08/11/2025 08/11/2022, 07/22, 08/04/2022 Colorectal Cancer Screening 08/11/2025 Diabetes Screening 2026 2023, 1 05/28/2022, 12/22/2022, Additional history exists Zoster Vaccines Completed 01/16/2020, 06/26/2019 Pneumococcal Vaccine: 65+ Years Completed 10/13/2020, 12/18/2019 VITAMIN D LEVEL ONCE IN A LIFETIME-USE SMARTSET# 52156 Completed 12/01/2021, 08/03/2021, 06/02/2021, Additional history exists [...] Advance Directives occurred with: Patient Care Teams Painting Manager Relationship Specialty Start Date End Date Kenzie Pacheco MD 200 [facility] [place] [address] PCP - General Internal Medicine 06/26/19 documented as of this encounter
--- OUTSIDE RECORDS SUMMARY | 2023-06-08 14:11 | External Medical Summary | Summary of Care ---
Author Name Unknown Organization [facility] Address [address] [place] [address] Phone [phone] Care Team Providers Care Information Broker Name Role Phone Kenzie Pacheco MD Primary Care Provider [phone] Reason for Visit * Reason Onset Date Comments Precert Future 05/30/2023 Prolia Encounter Details Date Type Department Care Team (Late st Contact Info) Description 05/30/2023 Telephone Hematology/Oncology [facility] [address] [place] [address] Katie Hinton MD [address] [place] [address] Precert Future (Prolia) Allergies Active Allergy Reactions Criticality Noted Date [...] mRNA, LNP-s, No Pre serve, 2-Dose Series ([employer]) 06/05/2020,05/15/2020 Covid-19, Mrna, Lnp-s, Pf, B ivalent, [...] encounter Miscellaneous Notes * Addendum Note - Katie Hinton MD - 06/01/2023 12:01 PM ESTAddended by: KATIE HINTON on: 06/01/2023 12:01 PM Modules accepted: Orders * Telephone Encounter - Katie Hinton MD - 06/01/2023 12:01 PM EST Ordered Reclast in her case. * Telephone Encounter - Liz Banuelos RN - 06/01/2023 10:11 AM EST Referral updated- insurance preference is RECLAST. Dr Hinton: is there a contraindication to patient receiving reclast? If not, please place new supportive order to change plan. Thanks! * Telephone Encounter - Nathan Sandhu RN - 05/30/2023 1:38 PM EST Referral entered, awaiting PFC review. * Telephone Encounter - Nathan Sandhu RN - 05/30/2023 9:29 AM EST Received orders for Prolia. [place] plan built and routed for signature. Will await auth. Pt had CBCD, BMP completed 04/25/23, will need updated Phos lab. Order placed. MyG sent to patient toinform. documented in this encounter Plan of Treatment Upcoming Encounters Date Type Department Care Team (Late st Contact Info) Description 06/06/2023 2:30 PM EST Office Visit Cardiology, [facility] [address] [place] [address] Travon Kruse, [address] [place] [address] 06/15/2023 1:00 PM EST Office Visit Cardiology, [facility] [place] [address] [facility] Cardiology [facility] 132 [facility] [place] [address] 07/17/2023 2:20 PM EDT Office Visit General Internal Medicine [facility] [address] [facility] [place] [address] Kenzie Pacheco MD 200 [facility] [place] [address] 12/25/2023 11:30 AM EDT Imaging Radiology [address] 132 [facility] [place] [address] 01/08/2024 1:15 PM EDT Office Visit Hematology/Oncology [facility] [address] [facility] [place] [address] Katie Hinton MD 200 [facility] [place] [address] Scheduled Orders Name Type Priority Associated Diagnoses Orde r Schedule PHOSPHORUS Lab Routine Age-related osteoporosis without current pathological fracture Expected: 05/30/2023, Expires: 05/30/2024 Health Maintenance Due Date Last Done Comments DTaP,Tdap,and Td Vaccines (1 - Tdap) 1974 Colonoscopy 1999 Fecal Occult Blood Test 1999 Sigmoidoscopy 1999 COVID-19 Vaccine (2022- season) 2022 02/10/2022, 06/05/2020, 05/15/2020 Influenza Vaccine (FLU shot) (#1) 2022 03/22/2022, 02/26/2021, 12/18/2019, Additional history exists Albumin/Creatinine Ratio 07/08/2023 07/07/2022, 05/24 CKD PHOS USE SMARTSET 47850 07/08/202306/21, 12/10/2020, 12/26/2019 DXA Scan 07/20/2023 07/19/2021, 07/02/2019 GFR 10/24/2023 2023, 1208/2022, 07/07/2022, Additional history exists Depression Screening 01/16/2024 01/15/2023 Mammogram 01/16/2024 01/15/2023, 04/2022, 02/18/2021, Additional history exists CKD HGB USE SMARTSET 59874 04/25/202404/25, 03/27/2023, 07/07/2022, Additional history exists Cologuard 08/11/2025 08/11/2022, 07/22, 08/04/2022 Colorectal Cancer Screening 08/11/2025 Diabetes Screening 2026 2023, 1 05/28/2022, 12/22/2022, Additional history exists Zoster Vaccines Completed 01/16/2020, 06/26/2019 Pneumococcal Vaccine: 65+ Years Completed 10/13/2020, 12/18/2019 VITAMIN D LEVEL ONCE IN A LIFETIME-USE SMARTSET# [id number] Completed 12/01/2021, 08/03/2021, 06/02/2021, Additional history exists [...] Advance Directives occurred with: Patient Care Teams Information Broker Relationship Specialty Start Date End Date Kenzie Pacheco MD 200 [facility] [place] [address] PCP - General Internal Medicine 06/26/19 documented as of this encounter
--- OUTSIDE RECORDS SUMMARY | 2023-06-08 14:11 | External Medical Summary | Summary of Care ---
Author Name Unknown Organization [facility] Address [address] [place] [address] Phone [phone] Care Team Providers Care [place] Name Role Phone Kenzie Pacheco MD Primary Care Provider [phone] Reason for Visit * Reason Onset Date Comments Advice 05/30/2023 Torres Encounter Details Date Type Department Care Team (Late st Contact Info) Description 05/30/2023 Telephone General Internal Medicine [facility] [address] [place] [address] Kenzie Pacheco MD 200 [facility] [place] [address] Advice (Torres) Allergies Active Allergy Reactions Criticality Noted Date Comments Morphine 12/25/2017 tachycardiac documented as of this encounter (statuses as of 05/30/2023) Medications Medication Sig Dispensed Refills Start Date [...] as of this encounter (statuses as of 05/30/2023) Active Problems Problem Noted Date Diagnosed Date [...] as of this encounter (statuses as of 05/30/2023) Resolved Problems Problem Noted Date Diagnosed Date Resolved Date Prediabetes 06/06/2021 01/04/2023 Overview: Per Prediabetes protocol Overweight (BMI 25.0-29.9) 07/08/2020 0 01/15/2023 Severe persistent asthma without complication 08/26/19 20 12/12/2021 Mild intermittent asthma with exacerbation 06/26/2019 08/26/2019 GERD (gastroesophageal reflux disease) 12/25/2017 12/12/2018 documented as of this encounter (statuses as of 05/30/2023) Immunizations Name Administration Dates Next Due COVID-19 mRNA, LNP-s, No Pre serve, 2-Dose Series (Pfizer) 06/05/2020,05/15/2020 Covid-19, Mrna, Lnp-s, Pf, B ivalent, [...] encounter Miscellaneous Notes * Telephone Encounter - Susan Sparks RN - 05/30/2023 2:13 PM EST Called and spoke with Ashely at [facility] who voiced patient would be getting a right knee arthroscopy on 06/08. Dr. Torres reviewed labs and said she is good for surgery. Called Ashely at [facility] to let her know she is cleared for surgery. * Telephone Encounter - Alicia Jennnigs OSA - 05/30/2023 1:20 PM EST Jamaal pt. Pt has surgery next week at [facility]. Would Dr torres reveiew labs from 04/25 and let [facility] know if pt is cleared for surgery. Please call Ashely at [facility] at [phone] Has access to [employer] to see messages. Thank You! documented in this encounter Plan of Treatment Upcoming Encounters Date Type Department Care Team (Late st Contact Info) Description 06/06/2023 2:30 PM EST [facility] [address] [place] [address] Travon Kruse DO [address] [place] [address] 06/15/2023 1:00 PM EST [facility] [address] [place] [place] [address] [facility] Cardiology Drew [address] [place] [address] 07/17/2023 2:20 PM EDT Office Visit General Internal Medicine [facility] 200 [facility] [place] [address] Kenzie Pacheco MD 200 [facility] [place] [address] 12/25/2023 11:30 AM EDT Imaging Radiology [address] [place] [address] 01/08/2024 1:15 PM EDT Office Visit Hematology/Oncology [facility] [address] [place] [address] Hari Torres MD 200 [facility] [place] [address] Health Maintenance Due Date Last Done Comments DTaP,Tdap,and Td Vaccines (1 - Tdap) 1973 Colonoscopy 1999 Fecal Occult Blood Test 1999 Sigmoidoscopy 1999 COVID-19 Vaccine ( - season) 2022 02/10/2022, 06/05/2020, 05/15/2020 Influenza Vaccine (FLU shot) (#1) 2022 03/22/2022, 02/26/2021, 12/18/2019, Additional history exists Albumin/Creatinine Ratio 07/08/2023 07/07/2022, 05/24 CKD PHOS USE SMARTSET 14832 07/08/202306/21, 12/10/2020, 12/26/2019 DXA Scan 07/20/2023 07/19/2021, 07/02/2019 GFR 10/24/2023 2023, 1208/2022, 07/07/2022, Additional history exists Depression Screening 01/16/2024 01/15/2023 Mammogram 01/16/2024 01/15/2023, 0904/2022, 02/18/2021, Additional history exists CKD HGB USE SMARTSET 24970 04/25/202404/25, 03/27/2023, 07/07/2022, Additional history exists Cologuard 08/11/2025 08/11/2022, 07/22, 08/04/2022 Colorectal Cancer Screening 08/11/2025 Diabetes Screening 2026 2023, 1 05/28/2022, 12/22/2022, Additional history exists Zoster Vaccines Completed 01/16/2020, 06/26/2019 Pneumococcal Vaccine: 65+ Years Completed 10/13/2020, 12/18/2019 VITAMIN D LEVEL ONCE IN A LIFETIME-USE SMARTSET# [id number] Completed 12/01/2021, 08/03/2021, 06/02/2021, Additional history exists [...] Advance Directives occurred with: Patient Care Teams [place] Relationship Specialty Start Date End Date Kenzie Pacheco MD [address] [place] [address] PCP - General Internal Medicine 06/26/19 documented as of this encounter
--- OUTSIDE RECORDS SUMMARY | 2023-06-08 14:11 | External Medical Summary | Summary of Care ---
Author Name Unknown Organization [facility] Address [address] [place] [address] Phone [phone] Care Team Providers Care Water Team Leader Name Role Phone Kenzie Pacheco MD Primary Care Provider [phone] Reason for Visit * Reason Onset Date Comments Precert Future 05/30/2023 Prolia Encounter Details Date Type Department Care Team (Late st Contact Info) Description 05/30/2023 Telephone Hematology/Oncology [facility] [address] [place] [address] Hari Hinton MD [address] [place] [address] Precert Future (Prolia) Allergies Active Allergy Reactions [...] mRNA, LNP-s, No Pre serve, 2-Dose Series ([employer]) 06/05/2020,05/15/2020 Covid-19, Mrna, Lnp-s, Pf, B ivalent, [...] 9:29 AM EST Received orders for Prolia. [place] plan built and routed for signature. Will await auth. Pt had CBCD, BMP completed 04/25/23, will need updated Phos lab. Order placed. MyG sent to patient toinform. documented in this encounter Plan of Treatment Upcoming Encounters Date Type Department Care Team (Late st Contact Info) Description 06/06/2023 2:30 PM EST Office Visit Cardiology, [facility] [address] [place] [address] Travon Kruse DO [address] [place] [address] 06/15/2023 1:00 PM EST Office Visit Cardiology, [facility] 132 [facility] [place] [address] [place] Cardiology [facility] 132 [facility] [place] [address] 07/17/2023 2:20 PM EDT Office Visit General Internal Medicine [facility] [address] [place] [address] Kenzie Pacheco MD [address] [facility] [place] [address] 12/25/2023 11:30 AM EDT Imaging Radiology [facility] 1st [facility] [address] [address] 01/08/2024 1:15 PM EDT Office Visit Hematology/Oncology [facility] [address] [place] [address] Hari Hinton MD [address] [place] [address] Scheduled Orders Name Type Priority Associated Diagnoses [...] 07/08/2023 07/07/2022, 05/24 CKD PHOS USE SMARTSET 33711 07/08/202306/21, 12/10/2020, 12/26/2019 DXA Scan 07/20/2023 07/19/2021, 07/02/2019 GFR 10/24/2023 2023, 1208/2022, 07/07/2022, Additional history exists Depression Screening 01/16/2024 01/15/2023 Mammogram 01/16/2024 01/15/2023, 090 04/2022, 02/18/2021, Additional history exists CKD HGB USE SMARTSET 94777 04/25/202404/25, 03/27/2023, 07/07/2022, Additional history exists Cologuard 08/11/2025 08/11/2022, 07/22, 08/04/2022 Colorectal Cancer Screening 08/11/2025 Diabetes Screening 2026 2023, 1 05/28/2022, 12/22/2022, Additional history exists Zoster Vaccines Completed 01/16/2020, 06/26/2019 Pneumococcal Vaccine: 65+ Years Completed 10/13/2020, 12/18/2019 VITAMIN D LEVEL ONCE IN A LIFETIME-USE SMARTSET# 27341 Completed 12/01/2021, 08/03/2021, 06/02/2021, Additional history exists [...] Advance Directives occurred with: Patient Care Teams Water Team Leader Relationship Specialty Start Date End Date Kenzie Pacheco MD [address] [place] [address] PCP - General Internal Medicine 06/26/19 documented as of this encounter
--- OUTSIDE RECORDS SUMMARY | 2023-06-08 14:11 | External Medical Summary | Summary of Care ---
Author Name Unknown Organization [facility] Address [address] [place] [address] Phone [phone] Care Team Providers Care Convention Services Manager Name Role Phone Kenzie Pacheco MD Primary Care Provider [phone] Reason for Visit * Reason Comments Outpatient Testing Encounter Details Date Type Department Care Team (Late st Contact Info) Description 06/04/2023 2:00 PM EST Laboratory Laboratory [facility] [address] [place] [id number] [facility] [place] [address] Dyslipidemia, goal LDL below 70; Age-related osteoporosis without current pathological fracture Allergies Active Allergy Reactions Criticality Noted Date [...] mRNA, LNP-s, No Pre serve, 2-Dose Series ([facility]) 06/05/2020,05/15/2020 Covid-19, Mrna, Lnp-s, Pf, B ivalent, 30 Mcg, IM, 12 yrs and above ([facility]) 02/10/2022 Pneumococcal Conjugate Vacc, 13 Valent (Prevnar) [...] 06/06/2023 2:30 PM EST Office Visit Cardiology, [facility] 132 [facility] [place] [address] Travon Kruse DO [address] [place] [address] 06/15/2023 1:00 PM EST Office Visit Cardiology, [facility] 132 [facility] [place] [address] [facility] Cardiology [facility] 132 [facility] [place] [address] 07/17/2023 2:20 PM EDT Office Visit General Internal Medicine [facility] 200 [facility] [place] [address] Kenzie Pacheco MD 200 [facility] [place] [address] 12/25/2023 11:30 AM EDT Imaging Radiology [facility] 132 [facility] [place] [address] 01/08/2024 1:15 PM EDT Office Visit Hematology/Oncology [facility] 200 [facility] [place] [address] Hari Hinton MD 200 [facility] [place] [address] Pending Results Name Type Priority Associated Diagnoses Date /Time LIPID PANEL WITH DIRECT LDL IF TG IS HIGH Lab Routine Dyslipidemia, goal LDL below 70 06/04/2023 2:01 PM EST PHOSPHORUS Lab Routine Age-related osteoporosis without current pathological fracture 06/04/2023 2:01 PM EST Health Maintenance Due Date Last Done Comments DTaP,Tdap,and Td Vaccines (1 - Tdap) 1974 Colonoscopy 1999 Fecal Occult Blood Test 1999 Sigmoidoscopy 1999 COVID-19 Vaccine ( season) 2022 02/10/2022, 06/05/2020, 05/15/2020 Influenza Vaccine (FLU shot) (#1) 2022 03/22/2022, 02/26/2021, 12/18/2019, Additional history exists Albumin/Creatinine Ratio 07/08/2023 07/07/2022, 05/24 CKD PHOS USE SMARTSET 63407 07/08/202306/21, 12/10/2020, 12/26/2019 DXA Scan 07/20/2023 07/19/2021, 07/02/2019 GFR 10/24/2023 2023, 12/08/2022, 07/07/2022, Additional history exists Depression Screening 01/16/2024 01/15/2023 Mammogram 01/16/2024 01/15/2023, 090 04/2022, 02/18/2021, Additional history exists CKD HGB USE SMARTSET 34226 04/25/202404/25, 03/27/2023, 07/07/2022, Additional history exists Cologuard 08/11/2025 08/11/2022, 07/22, 08/04/2022 Colorectal Cancer Screening 08/11/2025 Diabetes Screening 2026 2023, 1 05/28/2022, 12/22/2022, Additional history exists Zoster Vaccines Completed 01/16/2020, 06/26/2019 Pneumococcal Vaccine: 65+ Years Completed 10/13/2020, 12/18/2019 VITAMIN D LEVEL ONCE IN A LIFETIME-USE SMARTSET# 79656 Completed 12/01/2021, 08/03/2021, 06/02/2021, Additional history exists GARDASIL-HPV IMMUNIZATION SERIES Aged Out No longer eligible based on patient's age to complete this topic MENINGOCOCCAL (MENACTRA/MENVEO) Aged Out No longer eligible based on patient's age to complete this topic documented as of this encounter Medical Devices Not on filedocumented as of this encounter Visit Diagnoses Diagnosis Dyslipidemia, goal LDL below 70 Other and unspecified hyperlipidemia Age-related osteoporosis without current pathological fracture Senile osteoporosis documented in this encounter Advance Directives Latest Code Status on File Code Status Date Activated Date Inactivated Comments Full Code 05/02/2023 7:00 AM 05/02/2023 2:32 PM This order reflects the patients wishes and were consensually agreed upon. Question Answer Comments Discussion of Advance Directives occurred with: Patient Care Teams Convention Services Manager Relationship Specialty Start Date End Date Kenzie Pacheco MD 200 [facility] [address] PCP - General Internal Medicine 06/26/19 documented as of this encounter
--- OUTSIDE RECORDS SUMMARY | 2023-06-08 14:11 | External Medical Summary | Summary of Care ---
Author Name Unknown Organization [facility] Address [address] [place] [address] Phone [phone] Care Team Providers Care Cartridge Filler Name Role Phone Kenzie Pacheco MD Primary Care Provider [phone] Reason for Visit * Reason Onset Date Comments Precert Future 05/30/2023 Prolia Encounter Details Date Type Department Care Team (Late st Contact Info) Description 05/30/2023 Telephone Hematology/Oncology [facility] [address] [place] [address] Hari Hinton MD [address] [place] [address] Precert Future (Prolia) Allergies Active Allergy Reactions [...] mRNA, LNP-s, No Pre serve, 2-Dose Series ([employer]) 06/05/2020,05/15/2020 Covid-19, Mrna, Lnp-s, Pf, B ivalent, [...] encounter Miscellaneous Notes * Telephone Encounter - Liz Banuelos RN [...] 9:29 AM EST Received orders for Prolia. [place] plan built and routed for signature. Will await auth. Pt had CBCD, BMP completed 04/25/23, will need updated Phos lab. Order placed. MyG sent to patient toinform. documented in this encounter Plan of Treatment Upcoming Encounters Date Type Department Care Team (Late st Contact Info) Description 06/06/2023 2:30 PM EST Office Visit Cardiology, [facility] [address] [place] [address] Travon Kruse, [address] [place] [address] 06/15/2023 1:00 PM EST [facility] [address] [place] [address] [facility] [address] [place] [address] 07/17/2023 2:20 PM EDT Office Visit General Internal Medicine [facility] [place] 200 [facility] [place] [address] Kenzie Pacheco MD 200 [facility] [place] [address] 12/25/2023 11:30 AM EDT Imaging Radiology [address], [place] [facility] [place] [address] 01/08/2024 1:15 PM EDT Office Visit Hematology/Oncology [facility] [place] 200 [facility] [place] [address] Hari Hinton MD 200 [facility] [place] [address] Scheduled Orders Name Type Priority Associated Diagnoses [...] 07/08/2023 07/07/2022, 05/24 CKD PHOS USE SMARTSET 89842 07/08/202306/21, 12/10/2020, 12/26/2019 DXA Scan 07/20/2023 07/19/2021, 07/02/2019 GFR 10/24/2023 2023, 1208/2022, 07/07/2022, Additional history exists Depression Screening 01/16/2024 01/15/2023 Mammogram 01/16/2024 01/15/2023, 09/04/2022, 02/18/2021, Additional history exists CKD HGB USE SMARTSET 92556 04/25/202404/25, 03/27/2023, 07/07/2022, Additional history exists Cologuard 08/11/2025 08/11/2022, 07/22, 08/04/2022 Colorectal Cancer Screening 08/11/2025 Diabetes Screening 2026 2023, 1 05/28/2022, 12/22/2022, Additional history exists Zoster Vaccines Completed 01/16/2020, 06/26/2019 Pneumococcal Vaccine: 65+ Years Completed 10/13/2020, 12/18/2019 VITAMIN D LEVEL ONCE IN A LIFETIME-USE SMARTSET# 48451 Completed 12/01/2021, 08/03/2021, 06/02/2021, Additional history exists [...] Advance Directives occurred with: Patient Care Teams Cartridge Filler Relationship Specialty Start Date End Date Kenzie Pacheco MD 200 [place] [address] PCP - General Internal Medicine 06/26/19 documented as of this encounter
--- OUTSIDE RECORDS SUMMARY | 2023-06-08 14:11 | External Medical Summary | Summary of Care ---
Author Name Unknown Organization [facility] Address [address] [place] [address] Phone [phone] Care Team Providers Care Flatwork Folder Name Role Phone Kenzie Pacheco MD Primary Care Provider [phone] Reason for Visit * Reason Comments Outpatient Testing Encounter Details Date Type Department Care Team (Late st Contact Info) Description 06/04/2023 2:00 PM EST Laboratory Laboratory [facility] [address] [place] [phone] [facility] 200 [place] [address] Dyslipidemia, goal LDL below 70; Age-related osteoporosis [...] mRNA, LNP-s, No Pre serve, 2-Dose Series ([employer]) 06/05/2020,05/15/2020 Covid-19, Mrna, Lnp-s, Pf, B ivalent, 30 Mcg, IM, 12 yrs and above ([employer]) 02/10/2022 Pneumococcal Conjugate Vacc, 13 Valent (Prevnar) [...] 06/06/2023 2:30 PM EST Office Visit Cardiology, [facility] 132 [facility] [place] [address] Travon Kruse DO [address] [place] [address] 06/15/2023 1:00 PM EST Office Visit Cardiology, [facility] 132 [facility] [place] [address] [facility] Cardiology [facility] 132 [facility] [place] [address] 07/17/2023 2:20 PM EDT Office Visit General Internal Medicine [facility] 200 [place] [address] Kenzie Pacheco MD 200 [facility] [place] [address] 12/25/2023 11:30 AM EDT Imaging Radiology [facility] 132 [facility] [place] [address] 01/08/2024 1:15 PM EDT Office Visit Hematology/Oncology [facility] 200 [facility] [place] [address] Hari Hinton MD 200 [facility] [place] [address] Pending Results Name Type Priority Associated Diagnoses [...] 07/08/2023 07/07/2022, 05/24 CKD PHOS USE SMARTSET 37530 07/08/202306/21, 12/10/2020, 12/26/2019 DXA Scan 07/20/2023 07/19/2021, 07/02/2019 GFR 10/24/2023 2023, 12/08/2022, 07/07/2022, Additional history exists Depression Screening 01/16/2024 01/15/2023 Mammogram 01/16/2024 01/15/2023, 090 04/2022, 02/18/2021, Additional history exists CKD HGB USE SMARTSET 76549 04/25/202404/25, 03/27/2023, 07/07/2022, Additional history exists Cologuard 08/11/2025 08/11/2022, 07/22, 08/04/2022 Colorectal Cancer Screening 08/11/2025 Diabetes Screening 2026 2023, 1 05/28/2022, 12/22/2022, Additional history exists Zoster Vaccines Completed 01/16/2020, 06/26/2019 Pneumococcal Vaccine: 65+ Years Completed 10/13/2020, 12/18/2019 VITAMIN D LEVEL ONCE IN A LIFETIME-USE SMARTSET# 58135 Completed 12/01/2021, 08/03/2021, 06/02/2021, Additional history exists [...] Advance Directives occurred with: Patient Care Teams Flatwork Folder Relationship Specialty Start Date End Date Kenzie Pacheco MD 200 [place] [address] PCP - General Internal Medicine 06/26/19 documented as of this encounter
--- OUTSIDE RECORDS SUMMARY | 2023-06-08 14:11 | External Medical Summary ---
Author Name Unknown Address Unknown Organization K01:[facility] - [address] [place] [address] Laboratory Report Ordering Provider Test Date Status MONSERRAT WILSON 06/04/2023 14:01:48 Final Observation Date Value Abnormality Reference (Units ) Status BUN 06/04/2023 14:01:48 7 6-20 (mg/dL) Final Creatinine 06/04/2023 14:01:48 0.8 0.5-1.0 (mg/dL) Final Glomerular filtration rate/1.73 sq M.predicted [Volume Rate/Area] in Serum, Plasma or Blood by Creatinine-based formula (CKD-EPI) 06/04/2023 14:01:48 81 >=60 (mL/min) Final eGFR is calculated based on the CKD-EPI 2020 equation SODIUM 06/04/2023 14:01:48 140 135-146 (m mol/L) Final Potassium 06/04/2023 14:01:48 4.7 3.5-5.1 (m mol/L) Final Cl 06/04/2023 14:01:48 102 98-107 (mm ol/L) Final CO2 06/04/2023 14:01:48 21 Below low normal 22- 32 (mmol/L) Final Anion gap 06/04/2023 14:01:48 17 Above high normal 7- 15 (mmol/L) Final Glucose 06/04/2023 14:01:48 75 70-120 (mg /dL) Final Calcium 06/04/2023 14:01:48 10.0 8.4-10.2 ( mg/dL) Final Performing Location [facility] [address] [facility] [address]
--- OUTSIDE RECORDS SUMMARY | 2023-06-08 14:11 | External Medical Summary | Summary of Care ---
Author Name Unknown Organization [facility] Address [address] [place] [address] Phone [phone] Care Team Providers Care Vulcanizing Machine Operator Name Role Phone Kenzie Pacheco MD Primary Care Provider [phone] Encounter Details Date Type Department Care Team (Late st Contact Info) Description 05/30/2023 Orders Only Hematology/Oncology [facility] 200 [facility] [place] [address] Hari Hinton MD 200 [place] [address] Allergies Active Allergy Reactions Criticality Noted Date [...] mRNA, LNP-s, No Pre serve, 2-Dose Series ([employer]) 06/05/2020,05/15/2020 Covid-19, Mrna, Lnp-s, Pf, B ivalent, [...] 06/06/2023 2:30 PM EST Office Visit Cardiology, [facility] [address] [facility] [place] [address] Travon Kruse, [address] [place] [address] 06/15/2023 1:00 PM EST Office Visit Cardiology, [facility] 132 [facility] [place] [address] [facility] Cardiology [facility] 132 [facility] [place] [address] 07/17/2023 2:20 PM EDT Office Visit General Internal Medicine [facility] 200 [facility] [place] [address] Kenzie Pacheco MD [address] [place] [address] 12/25/2023 11:30 AM EDT Imaging Radiology [facility] [address] [place] [address] 01/08/2024 1:15 PM EDT Office Visit Hematology/Oncology [facility] 200 [facility] [place] [address] Hari Hinton MD [address] [place] [address] Health Maintenance Due Date Last Done Comments DTaP,Tdap,and Td Vaccines (1 - Tdap) 1974 Colonoscopy 1999 Fecal Occult Blood Test 1999 Sigmoidoscopy 1999 COVID-19 Vaccine (2022- season) 2022 02/10/2022, 06/05/2020, 05/15/2020 Influenza Vaccine (FLU shot) (#1) 2022 03/22/2022, 02/26/2021, 12/18/2019, Additional history exists Albumin/Creatinine Ratio 07/08/2023 07/07/2022, 05/24 CKD PHOS USE SMARTSET 71553 07/08/202306/21, 12/10/2020, 12/26/2019 DXA Scan 07/20/2023 07/19/2021, 07/02/2019 GFR 10/24/2023 2023, 1208/2022, 07/07/2022, Additional history exists Depression Screening 01/16/2024 01/15/2023 Mammogram 01/16/2024 01/15/2023, 0904/2022, 02/18/2021, Additional history exists CKD HGB USE SMARTSET 29151 04/25/202404/25, 03/27/2023, 07/07/2022, Additional history exists Cologuard 08/11/2025 08/11/2022, 07/22, 08/04/2022 Colorectal Cancer Screening 08/11/2025 Diabetes Screening 2026 2023, 1 05/28/2022, 12/22/2022, Additional history exists Zoster Vaccines Completed 01/16/2020, 06/26/2019 Pneumococcal Vaccine: 65+ Years Completed 10/13/2020, 12/18/2019 VITAMIN D LEVEL ONCE IN A LIFETIME-USE SMARTSET# 68507 Completed 12/01/2021, 08/03/2021, 06/02/2021, Additional history exists [...] Advance Directives occurred with: Patient Care Teams Vulcanizing Machine Operator Relationship Specialty Start Date End Date Kenzie Pacheco MD [address] [place] [address] PCP - General Internal Medicine 06/26/19 documented as of this encounter
--- OUTSIDE RECORDS SUMMARY | 2023-06-08 14:11 | External Medical Summary | Summary of Care ---
Author Name Unknown Organization [facility] Address [address] [place] [address] Phone [phone] Care Team Providers Care Medical Auditor Name Role Phone Kenzie Pacheco MD Primary Care Provider [phone] Reason for Visit * Reason Onset Date Comments Precert Future 05/30/2023 Prolia Encounter Details Date Type Department Care Team (Late st Contact Info) Description 05/30/2023 Telephone Hematology/Oncology [facility] [address] [place] [address] Katie Hinton MD [address] [place] [address] Precert Future (Prolia) Allergies Active Allergy Reactions [...] mRNA, LNP-s, No Pre serve, 2-Dose Series (Revolver) 06/05/2020,05/15/2020 Covid-19, Mrna, Lnp-s, Pf, B ivalent, [...] Encounter - Nathan Sandhu RN - 06/01/2023 12:55 PM EST New encounter created to track Reclast auth. * Addendum Note - Katie Hinton MD [...] 9:29 AM EST Received orders for Prolia. [place] plan built and routed for signature. Will await auth. Pt had CBCD, BMP completed 04/25/23, will need updated Phos lab. Order placed. MyG sent to patient toinform. documented in this encounter Plan of Treatment Upcoming Encounters Date Type Department Care Team (Late st Contact Info) Description 06/06/2023 2:30 PM EST Office Visit Cardiology, [facility] [address] [place] [address] Travon Kruse DO [address] [place] [address] 06/15/2023 1:00 PM EST Office Visit Cardiology, [facility] [address] [place] [address] [facility]iology [facility] [address] [facility] [place] [address] 07/17/2023 2:20 PM EDT Office Visit General Internal Medicine [facility] [address] [facility] [place] [address] Kenzie Pacheco MD 200 [facility] [place] [address] 12/25/2023 11:30 AM EDT Imaging [facility] [address] [facility] [place] [address] 01/08/2024 1:15 PM EDT Office Visit Hematology/Oncology [facility] [address] [facility] [place] [address] Katie Hinton MD [address] [facility] [place] [address] Scheduled Orders Name Type Priority Associated Diagnoses [...] 07/08/2023 07/07/2022, 05/24 CKD PHOS USE SMARTSET 65944 07/08/202306/21, 12/10/2020, 12/26/2019 DXA Scan 07/20/2023 07/19/2021, 07/02/2019 GFR 10/24/2023 2023, 12/08/2022, 07/07/2022, Additional history exists Depression Screening 01/16/2024 01/15/2023 Mammogram 01/16/2024 01/15/2023, 090 04/2022, 02/18/2021, Additional history exists CKD HGB USE SMARTSET 74594 04/25/202404/25, 03/27/2023, 07/07/2022, Additional history exists Cologuard 08/11/2025 08/11/2022, 07/22, 08/04/2022 Colorectal Cancer Screening 08/11/2025 Diabetes Screening 2026 2023, 1 05/28/2022, 12/22/2022, Additional history exists Zoster Vaccines Completed 01/16/2020, 06/26/2019 Pneumococcal Vaccine: 65+ Years Completed 10/13/2020, 12/18/2019 VITAMIN D LEVEL ONCE IN A LIFETIME-USE SMARTSET# [id number] Completed 12/01/2021, 08/03/2021, 06/02/2021, Additional history exists [...] Advance Directives occurred with: Patient Care Teams Medical Auditor Relationship Specialty Start Date End Date Kenzie Pahceco MD [address] [place] [address] PCP - General Internal Medicine 06/26/19 documented as of this encounter
--- OUTSIDE RECORDS SUMMARY | 2023-06-08 14:12 | External Medical Summary | Summary of Care ---
Author Name Unknown Organization [facility] Address [address] [place] [address] Phone [phone] Care Team Providers Care Software Quality Engineer Name Role Phone Kenzie Pacheco MD Primary Care Provider Reason for Visit * Reason Comments Post-Op 04/30/2023 excision of cyst, right breast Encounter Details Date Type Department Care Team (Late st Contact Info) Description 05/22/2023 9:45 AM EST Office Visit General Surgery, [facility] [address] [place] [address] MD [address] [place] [address] Ductal carcinoma in situ (DCIS) of right breast*; Hx of breast cancer Allergies Active Allergy Reactions Criticality Noted Date Comments Morphine 12/25/2017 tachycardiac documented as of this encounter (statuses as of 05/22/2023) Medications Medication Sig Dispensed Refills Start Date [...] days. 6 mL 3 11/29/2022 08/22/2023 Active Montelukast Sodium 10 MG Oral Tablet (Singulair) Take 1 tablet daily each evening 90 Tablet 3 01/15/2023 Active Tamsulosin HCl 0.4 MG Oral Capsule [...] taking tablet 15 Tablet 1 04/26/2023 Active documented as of this encounter (statuses as of 05/22/2023) Active Problems Problem Noted Date Diagnosed Date Statin intolerance 06/01/2022 Severe persistent asthma with [...] as of this encounter (statuses as of 05/22/2023) Resolved Problems Problem Noted Date Diagnosed Date Resolved Date Prediabetes 06/06/2021 01/04/2023 Overview: Per Prediabetes protocol Overweight (BMI 25.0-29.9) 07/08/2020 0 01/15/2023 Severe persistent asthma without complication 08/26/19 20 12/12/2021 Mild intermittent asthma with exacerbation 06/26/2019 08/26/2019 GERD (gastroesophageal reflux disease) 12/25/2017 12/12/2018 documented as of this encounter (statuses as of 05/22/2023) Immunizations Name Administration Dates Next Due COVID-19 mRNA, LNP-s, No Pre serve, 2-Dose Series (Therapydia) 06/05/2020,05/15/2020 Covid-19, Mrna, Lnp-s, Pf, B ivalent, 30 Mcg, IM, 12 yrs and above (Therapydia) 02/10/2022 Pneumococcal Conjugate Vacc, 13 Valent (Prevnar) [...] as of this encounter Progress Notes * Jayne Way MD - 05/22/2023 9:45 AM EST [facility] BRE[facility] NOTES SUBJECTIVE: Nakul Palm is a 68 year old female who is now s/p a right excisional breast biopsy for ADH. Final pathology showed a 2.5 mm an intermediate grade non-invasive ductal carcinoma. Estrogen receptor status is positive. Progesterone receptor status is positive. Margins within 1 mm posteriorly. ALH was also present. 05/02/23: l Diagnosis A. 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 Lobular intraepithelial neoplasia type 1 (also known as Atypical Lobular Hyperplasia, ALH). Fibrocystic change. Columnar cell change/hyperplasia. Focal changes consistent with previous biopsy site. Calcifications present. (See Synoptic Data) at 1535 Synoptic Report DCIS OF THE BREAST: Resection 8th Edition - Protocol posted: 2DCIS OF THE BREAST: COMPLETE EXCISION - All Specimens SPECIMEN Procedure Excision (less than total mastectomy) Specimen Laterality Right TUMOR Tumor Site Upper outer quadrant Histologic Type Ductal carcinoma in situ Size (Extent) of DCIS Estimated size (extent) of DCIS is at least (Millimeters): 2.5 mm Number of Blocks with DCIS 3 Number of Blocks Examined 10 Architectural Patterns Cribriform Nuclear Grade Grade II (intermediate) Necrosis Present, focal (small foci or single cell necrosis) Microcalcifications Present in DCIS Present in nonneoplastic tissue MARGINS Margin Status All margins negative for DCIS Distance from DCIS to Closest Margin 1 mm Closest Margin(s) to DCIS Posterior REGIONAL LYMPH NODES Regional Lymph Node Status Not applicable (no regional lymph nodes submitted or found) PATHOLOGIC STAGE CLASSIFICATION (pTNM, AJCC 8th Edition) Reporting of pT, pN, and (when applicable) pM categories is based on information available to the pathologist at the time the report is issued. As per the AJCC (Chapter 1, 8th Ed.) it is the managingphysicians responsibility to establish the final pathologic stage based upon all pertinent information, including but potentially not limited to this pathology report. pT Category pTis (DCIS) pN Category pN not assigned (no nodes submitted or found) . 05/02/23 A. 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 Lobular intraepithelial neoplasia type 1 (also known as Atypical Lobular Hyperplasia, ALH). Fibrocystic change. Columnar cell change/hyperplasia. Focal changes consistent with previous biopsy site. Calcifications present. (See Synoptic Data) The patient is not having any pain. Fever has not been present. She has no wound drainage and has no wound erythema. The patient has no drains in place. OBJECTIVE: not currently . Examination today reveals healing right excisional biopsy upper outer quadrant incision. There is no significant wound erythema. There is no ecchymosis or hematoma. There is no wound drainage. IMPRESSION: Carcinoma RIGHT breast. Stage 0 (Tis-Nx-M0). Excisional biopsy was originally done for atypical ductal hyperplasia. We reviewed that the accepted margin for DCIS is typically 2 mm. However, there was a large study out of [facility] [place] in 2017 looking at over 1200 women with these "close but negative" margins for DCIS. It found equal risk of in breast recurrence in women with margins > 2 mm vs < 2mm if treated with radiation therapy ( 3.3% in > 2mm and 4.8% if <2 mm). Following study was also reviewed with her based on her question of recurrence risk with no furthertreatment: Consistent with data from [facility] [place], a study from [facility] sought to estimate the relative benefit of RT following BCS as a function of margin status 46. In this study, margin status was categorized as < 1 mm, 1 to 9 mm, or ? 10 mm. Among patients who received RT following BCS, 10- year risk of IBTR was nearly identical regardless of margin status and ranged [id number]%. In contrast, among patients who did not receive radiation therapy, 10-year risk of IBTR was41% for those with close margins < 1 mm, 27% for those with negative margins ranging from 1 to 9mm, and 21% for those with margins > 10 mm. The conclusion from these important studies is that when patients undergo BCS at large centers with careful assessment of pathologic margins and multidis ciplinary decision making, a close margin is not an adverse risk factor for LR provided patients receive appropriate WBRT and there is documentation of removal of malignant appearing calcifications. MRI breast 04/14 showed no worrisome areas of concern. 1 yr followup MRI was recommended. Pt does have heterogeneously dense breast tissue on mammography. Bilateral mammogram due 12/23/23. She was strongly encouraged to consider re-excision of the posterior margin which is my recommendation. We then reviewed options radiation therapy and hormonal therapy to continue to lower local recurrence risk. She was strongly encouraged to keep her referrals with Radiation and Medical Oncology. PLAN: Decide on re-excision of posterior margin right lumpectomy (my recommendation if she decides against radiation) Keep med onc and rad onc referrals. Jayne Way M.D. 05/22/2023 11:55 AM documented in this encounter Nursing Notes * Jimena Telles LPN - 05/22/2023 9:59 AM EST Chief Complaint Patient presents with Post-Op 04/30/2023 excision of cyst, right breast Patient is not having any pain, incision looks alright. Still healing. documented in this encounter Plan of Treatment Upcoming Encounters Date Type Department Care Team (Late st Contact Info) Description 05/29/2023 9:45 AM EST Office Visit Hematology/Oncology [facility] [address] [facility] [place] [address] Hari Hinton MD 200 [place] [address] 06/06/2023 2:30 PM EST [facility] [place] [address] Traovn Kruse, [address] [place] [address] 06/15/2023 1:00 PM EST [facility] [place] [address] [facility] Cardiology [facility] [address] [facility] [place] [address] 07/17/2023 2:20 PM EDT Office Visit General Internal Medicine [facility] [address] [place] [address] Kenzie Pacheco MD [address] [place] [address] 12/25/2023 11:30 AM EDT Imaging Radiology [facility] [address] [facility] [place] [address] Scheduled Orders Name Type Priority Associated Diagnoses Orde r Schedule MAMMOGRAM DIAGNOSTIC CHRISTIE BILATERAL Medical Imaging Routine Hx of breast cancer Expected: 12/23/2023 (Approximate), Expires: 06/20/2024 Health Maintenance Due Date Last Done Comments DTaP,Tdap,and Td Vaccines (1 - Tdap) 1973 Colonoscopy 1999 Fecal Occult Blood Test 1999 Sigmoidoscopy 1999 COVID-19 Vaccine ( - season) 2022 02/10/2022, 06/05/2020, 05/15/2020 Influenza Vaccine (FLU shot) (#1) 2022 03/22/2022, 02/26/2021, 12/18/2019, Additional history exists Albumin/Creatinine Ratio 07/08/2023 07/07/2022, 05/24 CKD PHOS USE SMARTSET 03198 07/08/202306/21, 12/10/2020, 12/26/2019 DXA Scan 07/20/2023 07/19/2021, 07/02/2019 GFR 10/24/2023 2023, 08/2022, 07/07/2022, Additional history exists Depression Screening 01/16/2024 01/15/2023 Mammogram 01/16/2024 01/15/2023, 04/2022, 02/18/2021, Additional history exists CKD HGB USE SMARTSET 91341 04/25/202404/25, 03/27/2023, 07/07/2022, Additional history exists Cologuard 08/11/2025 08/11/2022, 07/22, 08/04/2022 Colorectal Cancer Screening 08/11/2025 Diabetes Screening 2026 2023, 1 05/28/2022, 12/22/2022, Additional history exists Zoster Vaccines Completed 01/16/2020, 06/26/2019 Pneumococcal Vaccine: 65+ Years Completed 10/13/2020, 12/18/2019 VITAMIN D LEVEL ONCE IN A LIFETIME-USE SMARTSET# [id number] Completed 12/01/2021, 08/03/2021, 06/02/2021, Additional history exists GARDASIL-HPV IMMUNIZATION SERIES Aged Out No longer eligible based on patient's age to complete this topic MENINGOCOCCAL (MENACTRA/MENVEO) Aged Out No longer eligible based on patient's age to complete this topic documented as of this encounter Medical Devices Not on filedocumented as of this encounter Visit Diagnoses Diagnosis Ductal carcinoma in situ (DCIS) of right breast- Primary Hx of breast cancer Personal history of malignant neoplasm of breast documented in this encounter Advance Directives Latest Code Status on File Code Status Date Activated Date Inactivated Comments Full Code 05/02/2023 7:00 AM 05/02/2023 2:32 PM This order reflects the patients wishes and were consensually agreed upon. Question Answer Comments Discussion of Advance Directives occurred with: Patient Care Teams Software Quality Engineer Relationship Specialty Start Date End Date Kenzie Pacheco MD [address] [place] [address] PCP - General Internal Medicine 06/26/19 documented as of this encounter
--- OUTSIDE RECORDS SUMMARY | 2023-06-08 14:12 | External Medical Summary | Summary of Care ---
Author Name Unknown Organization [facility] Address [address] [place] [address] Phone [phone] Care Team Providers Care Photographer'S Assistant Name Role Phone Kenzie Pacheco MD Primary Care Provider [phone] Reason for Visit * Reason Comments Consultation Consultation - Denisse t Cancer * Evaluate & Treat - Unlimited Visits (Within 30 days (routine)) - Pending Review Specialty Diagnoses / Procedures Referred By Kalli t Referred To Contact Hematology/Oncology / Hematology Oncology Diagnoses Ductal carcinoma in situ (DCIS) of right breast Jayne Way MD [address] [place] [address] Referral ID Status Reason Start Date Expiration Date Visits Requested Visits Authorized [id number] Pending Review Specialty Services Required 05/09/[phone] Encounter Details Date Type Department Care Team (Late st Contact Info) Description 05/29/2023 9:45 AM EST Office Visit Hematology/Oncology [facility] [address] [place] [address] Hari Hinton MD [address] [place] [address] Breast neoplasm, Tis (DCIS), right*; Age-related osteoporosis without current pathological fracture Allergies Active Allergy Reactions Criticality Noted Date Comments Morphine 12/25/2017 tachycardiac documented as of this encounter (statuses as of 05/29/2023) Medications Medication Sig Dispensed Refills Start Date [...] as of this encounter (statuses as of 05/29/2023) Active Problems Problem Noted Date Diagnosed Date [...] as of this encounter (statuses as of 05/29/2023) Resolved Problems Problem Noted Date Diagnosed Date Resolved Date Prediabetes 06/06/2021 01/04/2023 Overview: Per Prediabetes protocol Overweight (BMI 25.0-29.9) 07/08/2020 0 01/15/2023 Severe persistent asthma without complication 08/26/19 20 12/12/2021 Mild intermittent asthma with exacerbation 06/26/2019 08/26/2019 GERD (gastroesophageal reflux disease) 12/25/2017 12/12/2018 documented as of this encounter (statuses as of 05/29/2023) Immunizations Name Administration Dates Next Due COVID-19 mRNA, LNP-s, No Pre serve, 2-Dose Series (This Week In) 06/05/2020,05/15/2020 Covid-19, Mrna, Lnp-s, Pf, B ivalent, 30 Mcg, IM, 12 yrs and above (This Week In) 02/10/2022 Pneumococcal Conjugate Vacc, 13 Valent (Prevnar) [...] Sign Reading Time Taken Comments Blood Pressure 140/82 05/29/2023 9:40 AM EST Pulse 95 05/29/2023 9:40 AM EST Temperature - - Respiratory Rate 16 05/29/2023 9:40 AM EST Oxygen Saturation 98% 05/29/2023 9:40 AM EST Inhaled Oxygen Concentration - - Weight 64.9 kg (143 lb) 05/29/2023 9:40 AM EST Height 156.2 cm (5' 1.5") 05/29/2023 9:40 AM EST Body Mass Index 26.58 05/29/2023 9:40 AM EST documented in this encounter Progress Notes * Hari Hinton MD - 05/29/2023 9:45 AM EST Hematology/Oncology Outpatient Consult Note Lesly Cruz [address] [facility] [place] [address] NAKUL PALM # [id number] :1955 68-year-old female, REASON FOR CONSULTATION: Consultation for Nakul Palm requested by Dr. Jayne Way for evaluation and discussion of treatment options for right breast DCIS Date of consultation:05/29/2023 DIAGNOSIS: - Right breast DCIS, S/P lumpectomy, 2.5 mm focus, grade 2. -hormonal positive, - Posterior margin by 1 mm, she declined for additional surgical resection - Osteoporosis. CURRENT TREATMENT: She has not interested in pursuing adjuvant hormonal treatment order radiation treatment. -For osteoporosis she is on Fosamax. ( She already has underlying GERD, she is on PPI therapy last 10 years, ) - would like to start Prolia every 6 monthly. She does not have any dental problem. DIAGNOSTIC WORKUP: Bilateral breast screening mammogram on 12/22/2022: -Right breast --> group of calcification in the upper outer quadrant Left breast --> negative. Diagnostic right breast mammogram on 01/15/2023: -right breast punctate pleomorphic microcalcification. Right breast biopsy with calcification and without calcification on 03/04/2023) -atypical lobular hyperplasia. Borderline low-grade DCIS with microcalcifications. Bilateral breast MRI on 04/11/2023: No suspicious enhancement at the site of the biopsy in the right breast Left breast--> unremarkable Breast, right, upper outer quadrant, Saviscout-localized excision: ( 05/02/2023). - DCIS, intermediate grade, 1 mm from the closest resection margin ( posterior ) -atypical lobular hyperplasia -ER and [place] receptor strongly positive in 90 to 100% malignamt cells. INTERVAL HISTORY: She has come the clinic for the initial evaluation, she says that she is otherwise doing well, has some lower back pain related underlying DJD, no nausea no vomiting, no cardiac or pulmonary symptom no new GI symptoms other than symptoms of GERD when she does not take PPI therapy, she takes Fosamax, does not take vitamin-D and Calcium supplementation on regular basis, current weight around 143 lb, ambulates well, good ECOG PS 0. No increasing headache. No fever, no infections. REVIEW OF SYSTEMS: GENERAL: No change in weight, no weakness, no fatigue, no fever, sweats or chills. SKIN: No skin rash, no bruising. HEAD: No new headache, no dizziness. EYES: No recent change in the vision, no diplopia, EARS: No earache no tinnitus, NOSE: No epistaxis, No nasal discharge or stuffiness, MOUTH: No sores, no dysphagia, no hoarseness of voice, NECK: No lumps, No swelling in thyroid area. No stiffness. PULMONARY: No cough, No shortness of breath, no hemoptysis, no chest pain, No wheezing. CARDIOVASCULAR: No anginal chest pain, no PND, no orthopnea. No palpitation, no leg edema. No syncope. GASTROINTESTINAL: No abdominal pain, no nausea or vomiting. No diarrhea, No constipation. No blood in stool or black tarry stools. No abdominal distention. UROLOGIC: No burning urination. No hematuria. MUSCULOSKELETAL: Lower back pain. HEMATOLOGIC: No anemia, no bleeding disorder, No bruising. NEUROLOGIC: No seizures, no focal weakness, no speech difficulty, No memory disturbances. No tingling or numbness of the extremities. PSYCHIATRIC: No depression. No anxiety. No psychosis. Past Medical History: Diagnosis Date Chronic frontal [...] 06/02/2021 Sicca syndrome (HCC) 10/13/2020 Thalassemia 12/26/2017 Past Surgical History: Procedure Laterality Date BREAST BIOPSY Right 2012 Benign BREAST BIOPSY Right 2017 Benign BREAST BIOPSY Right 02/01/2023 PATH pending BREAST LESION,OTHER,EXCISION Right 05/02/2023 EXCISION OF CYST OR TUMOR BREAST performed by Jayne Way MD at OR [facility] EGD, FLEXIBLE, DIAGNOSTIC N/A 10/15/2018 ESOPHAGOGASTRODUODENOSCOPY (EGD), FLEXIBLE, TRANSORAL, DIAGNOSTIC performed by Denton Solano DO at ENDOSCOPY [facility] EXC BREAST LESION RADMARK Right 05/02/2023 EXCISION OF BREAST LESION RADIOLOGICAL MARKER performed by Jayne Way MD at OR [facility] EXPLORE PARATHYROID GLANDS N/A 09/22/2020 PARATHYROIDECTOMY performed by Anatoliy Mcduffie MD at OR [facility] PARTIAL REMOVAL OF THYROID LOBE N/A 09/22/2020 PARTIAL THYROID LOBECTOMY performed by Anatoliy Mcduffie MD at [facility] SINUS SURGERY PROCEDURE NEC 2006 ? endoscopic sinus surgery; ? associated nasal surgery Current Outpatient Medications Medication Sig Dispense Refill Spacer/Aero-Hold Chamber Mask Use with inhaler 1 Each 0 Tylenol 325 MG Oral Capsule (Acetaminophen) Take by mouth. Naproxen Sodium 220 MG Oral Capsule Take 1 Capsule by mouth 2 times a day with morning and evening meals. Fluocinonide 0.05 % External Solution APPLY A FEW DROPS TO THE INVOLVED AREA TWICE A DAY (Patient not taking: Reported on 11/17/2022) Vitamin D3 25 MCG (1000 UT) Oral Tablet (Vitamin D3) Take 1 Tablet by mouth in the morning. Ketotifen Fumarate 0.025 % Ophthalmic Solution (Zaditor) Use 1 drop in each eye twice daily as needed for allergic eye symptoms 5 mL 6 EPINEPHrine 0.3 MG/0.3ML Injection Solution Auto-injector (Autoinjector) For a severe reaction: Inject in outer thigh following instructions on package and go to the Emergency room. (Patient not taking: Reported on 01/15/2023) 2 Each 3 guaiFENesin ER 600 MG Oral Tablet Extended Release 12 Hour (Mucinex) Use 1-2 tablets every 12 hoursfor excessive chest mucus production (Patient not taking: Reported on 2023) Cetirizine HCl 10 MG Oral Tablet (ZyrTEC) Take by mouth 1 Tablet in the morning AND 1 Tablet beforebedtime. Take one tablet daily for nasal allergy symptoms. (Patient not taking: Reported on 2023) 60 Tablet 11 Levalbuterol Tartrate 45 MCG/ACT Inhalation Aerosol (Xopenex Hfa) Inhale 2 Puffs by mouth every 4 hours as needed for Wheezing or Shortness of Breath (cough). (Patient not taking: Reported on 2023) 45 g 3 Budesonide-Formoterol Fumarate 160-4.5 MCG/ACT Inhalation Aerosol (Symbicort) Inhale 2 Puffs by mouth in the morning and 2 Puffs before bedtime. (Patient not taking: Reported on 2023) 10.2 g 3 Nitroglycerin 0.4 MG Sublingual Tablet Sublingual (Nitrostat) Place 1 Tablet under the tongue every5 minutes as needed for Pain, Chest. up to 3 doses in 15 minutes (Patient not taking: Reported on 01/15/2023) 25 Tablet 11 Xolair 150 MG/ML Subcutaneous Solution Prefilled Syringe (Omalizumab) Inject 150 mg (1 syringe) under the skin every 14 days. 6 mL 3 Tamsulosin HCl 0.4 MG Oral Capsule (Flomax) Take 1 Capsule by mouth in the morning. (Patient not taking: Reported on 2023) 30 Capsule 3 Famotidine 20 MG Oral Tablet (Pepcid) Take 1 tablet twice daily for persistent heartburn, acid reflux 180 Tablet 2 Repatha SureClick 140 MG/ML Subcutaneous Solution Auto-injector (evolocumab) Inject 140 mg under the skin every 14 days. Remove from refrigerator 30 minutes prior to injection. 6 mL 3 Esomeprazole Magnesium 40 MG Oral Packet (NexIUM) Take 40 mg by mouth every evening. Alendronate Sodium 70 MG Oral Tablet (Fosamax) Take 1 Tablet by mouth once a week. with 8 oz. water30 minutes before first meal of the day. Remain upright for 30 min after taking tablet 15 Tablet 1 Montelukast Sodium 10 MG Oral Tablet (Singulair) Take 1 tablet daily each evening 90 Tablet 2 No current facility-administered medications for this visit. 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 Tobacco Use Smoking status: Never Smokeless tobacco: Never Tobacco comments: no passive smoke exposures Vaping Use Vaping Use: Never used Substance and Sexual Activity Alcohol use: No Drug use: No Sexual activity: Not on file Other Topics Concern Not on file Social History Narrative Not on file Social Determinants of Health Financial Resource Strain: Not on file Food Insecurity: No Food Insecurity (05/23/2019) Hunger Vital Sign Worried About Running Out of Food in the Last Year: Never true Ran Out of Food in the Last Year: Never true Transportation Needs: Not on file Physical Activity: Not on file Stress: Not on file Social Connections: Not on file Intimate Partner Violence: Not on file Housing Stability: Not on file On Exam: BP 140/82 (BP Site: Left Arm, BP Position: Sitting, BP Cuff Size: Regular) | Pulse 95 | Resp 16 | Ht 1.562 m (5' 1.5") | Wt 64.9 kg (143 lb) | SpO2 98% | BMI 26.58 kg/m | BSA 1.68 m Constitutional: Patient is alert, cooperative and oriented x 3. Well built woman, Patient is in no acute distress. HEENT: No icterus, no pallor, Throat and pharynx normal. Sinuses are non-tender. Neck: Supple and without lymphadenopathy or masses. No JVD. No Palpable supraclavicular lymph nodes. Lungs: Clear to auscultation. Bilateral symmetric air entry. No wheezing or rhonchi. Cardiovascular: Normal heart sounds, no murmurs.Regular rate and rhythm. Abdomen: soft, nontender, no hepatomegaly, no splenomegaly. Bowel sounds are normal. Neurological: No gross focal neurological deficit; walks with a normal gait. Extremities: No finger clubbing, No cyanosis. No leg edema. Skin:: No skin rash. SPINE: No spinal or paraspinal tenderness. LABS: Blood workup done on 03/27/2023: - WBC 8000, H&H of , Platelet count [id number] -BUN/Creat: 9/0.8, Calcium 10.1. IMAGING: Bone density done on 07/19/2021: - T-score at left forearm -4.4, lumbar spine -2.1, left femoral neck -2.5. MRI of the lumbar spine on 04/21/2023: - spinal stenosis at L3 - L4 level, now severe, Chest x-ray on 2023 --> no suspicious findings noted. ASSESSMENT AND PLAN: 68-year-old female, A case of right breast DCIS, S/P lumpectomy, 2.5 cm DCIS, grade 2, posterior margin close by 1 mm, hormonal positive. No previous history of any cancer diagnosis, no family of any kind of cancer diagnosis. She declined for additional surgical intervention Reviewed with her regarding the diagnostic workup, pathological findings, she is very small DCIS ofabout 2.5 mm, risk of recurrence is small. She says that she has not interested in pursuing any kind of adjuvant treatment option at this time including radiation treatment and hormonal treatment. Wetalked about risk and benefit of adjuvant hormonal and radiation treatment. She says that she is scheduled for follow-up breast mammogram in December of 2023. She also has underlying osteoporosis, has also underlying GERD, she is on Fosamax. Because of significant GERD and significant osteoporosis, I would like to change treatment for osteoporosis with Prolia, reviewed with regarding treatment schedule side effect profile she is in agreement for that Would like to start Prolia 60 mg subcutaneously every 6 monthly. She will continue take vitamin-D and Calcium supplementation on regular basis. I am planning to see her back in the clinic in December of 2023. Thanks for the consultation Dr. Hari Hinton Hem/Onc (This note was completed using the dictation program Fluency Direct. As such, there may be misspellings word substitutions, or other variations that should not change the essence of the clinical content of this encounter note. If there is need for further clarification, please direct questions to the provider listed above.) documented in this encounter Nursing Notes * Mojgan Woodall LPN - 05/29/2023 9:41 AM EST Patient identifed by name and birthdate Do you have any concerns about pain management for today's visit? Yes. Patient instructed to discuss pain concerns with provider during the visit today Living Will or Advance Directive for Health Care as noted on the problem list. [employer] is a way you can talk to your provider on line through e-mail. Would you like to sign up? I can activate it for you? ALREADY ACTIVE Filed Vitals: 05/29/23 0940 BP: 140/82 Pulse: 95 Resp: 16 SpO2: 98% Weight: 64.9 kg (143 lb) Height: 1.562 m (5' 1.5") Patient was instructed to not get up on the exam table/exam chair until directed and assisted by their provider; patient is to remain seated in the chair/ wheelchair/ exam table/ exam chair for fall prevention and safety reasons. Patient is aware to have assistance to step down off exam table/exam chair with personnel. Patient voiced full comprehension of instructions. documented in this encounter Plan of Treatment Upcoming Encounters Date Type Department Care Team (Late st Contact Info) Description 06/06/2023 2:30 PM EST Office Visit Cardiology, [facility] [address] [facility] [place] [address] Travon Kruse DO [facility] [place] [address] 06/15/2023 1:00 PM EST Office Visit Cardiology, [facility] [address] [facility] [place] [address] [facility] [address] [facility] [place] [address] 07/17/2023 2:20 PM EDT Office Visit General Internal Medicine [facility] [address] [facility] [place] [address] Kenzie Pacheco MD 200 [facility] [place] [address] 12/25/2023 11:30 AM EDT Imaging Radiology [facility] 1st Floor, [place] [address] [facility] [place] [address] 01/08/2024 1:15 PM EDT Office Visit Hematology/Oncology [facility] [address] [place] [address] aHri Hinton MD 200 [facility] [place] [address] Health Maintenance Due Date Last Done Comments DTaP,Tdap,and Td Vaccines (1 - Tdap) 1973 Colonoscopy 1999 Fecal Occult Blood Test 1999 Sigmoidoscopy 1999 COVID-19 Vaccine (2022-24 season) 2022 02/10/2022, 06/05/2020, 05/15/2020 Influenza Vaccine (FLU shot) (#1) 2022 03/22/2022, 02/26/2021, 12/18/2019, Additional history exists Albumin/Creatinine Ratio 07/08/2023 07/07/2022, 05/24 CKD PHOS USE SMARTSET 07996 07/08/202306/21, 12/10/2020, 12/26/2019 DXA Scan 07/20/2023 07/19/2021, 07/02/2019 GFR 10/24/2023 2023, 1208/2022, 07/07/2022, Additional history exists Depression Screening 01/16/2024 01/15/2023 Mammogram 01/16/2024 01/15/2023, 0904/2022, 02/18/2021, Additional history exists CKD HGB USE SMARTSET 61515 04/25/202404/25, 03/27/2023, 07/07/2022, Additional history exists Cologuard 08/11/2025 08/11/2022, 07/22, 08/04/2022 Colorectal Cancer Screening 08/11/2025 Diabetes Screening 2026 2023, 1 05/28/2022, 12/22/2022, Additional history exists Zoster Vaccines Completed 01/16/2020, 06/26/2019 Pneumococcal Vaccine: 65+ Years Completed 10/13/2020, 12/18/2019 VITAMIN D LEVEL ONCE IN A LIFETIME-USE SMARTSET# 34034 Completed 12/01/2021, 08/03/2021, 06/02/2021, Additional history exists GARDASIL-HPV IMMUNIZATION SERIES Aged Out No longer eligible based on patient's age to complete this topic MENINGOCOCCAL (MENACTRA/MENVEO) Aged Out No longer eligible based on patient's age to complete this topic documented as of this encounter Medical Devices Not on filedocumented as of this encounter Visit Diagnoses Diagnosis Breast neoplasm, Tis (DCIS), right- Primary Age-related osteoporosis without current pathological fracture Senile osteoporosis documented in this encounter Advance Directives Latest Code Status on File Code Status Date Activated Date Inactivated Comments Full Code 05/02/2023 7:00 AM 05/02/2023 2:32 PM This order reflects the patients wishes and were consensually agreed upon. Question Answer Comments Discussion of Advance Directives occurred with: Patient Care Teams Photographer'S Assistant Relationship Specialty Start Date End Date Kenzie Pacheco MD 200 [facility] [place] [address] PCP - General Internal Medicine 06/26/19 documented as of this encounter
--- OUTSIDE RECORDS SUMMARY | 2023-06-08 14:12 | External Medical Summary | Summary of Care ---
Author Name Unknown Organization [facility] Address [address] [place] [address] Phone [phone] Care Team Providers Care Clinical Investigator Name Role Phone Kenzie Pacheco MD Primary Care Provider [phone] Reason for Visit * Reason Onset Date Comments pre-op exam 05/04/2023 Encounter Details Date Type Department Care Team (Late st Contact Info) Description 05/04/2023 Telephone General Internal Medicine [facility] [address] [place] [address] Kenzie Pacheco MD [address] [facility] [place] [address] pre-op exam Allergies Active Allergy Reactions Criticality Noted Date Comments Morphine 12/25/2017 tachycardiac documented as of this encounter (statuses as of 05/14/2023) Medications Medication Sig Dispensed Refills Start Date [...] as of this encounter (statuses as of 05/14/2023) Active Problems Problem Noted Date Diagnosed Date [...] as of this encounter (statuses as of 05/14/2023) Resolved Problems Problem Noted Date Diagnosed Date Resolved Date Prediabetes 06/06/2021 01/04/2023 Overview: Per Prediabetes protocol Overweight (BMI 25.0-29.9) 07/08/2020 0 01/15/2023 Severe persistent asthma without complication 08/26/19 20 12/12/2021 Mild intermittent asthma with exacerbation 06/26/2019 08/26/2019 GERD (gastroesophageal reflux disease) 12/25/2017 12/12/2018 documented as of this encounter (statuses as of 05/14/2023) Immunizations Name Administration Dates Next Due COVID-19 mRNA, LNP-s, No Pre serve, 2-Dose Series (MedShape) 06/05/2020,05/15/2020 Covid-19, Mrna, Lnp-s, Pf, B ivalent, [...] Telephone Encounter - Lizette Jackson OSA - 05/14/2023 8:10 AM EST Letter sent 05/14 * Telephone Encounter - Lizette Jackson OSA - 05/10/2023 9:16 AM EST MyG sent 05/10 * Telephone Encounter - Lizette Jackson OSA - 05/08/2023 9:19 AM EST Lmom 05/08 * Telephone Encounter - Steph Whitney LPN - 05/07/2023 2:48 PM EST Please assist with preop appointment. * Telephone Encounter - Kenzie Pacheco MD - 05/04/2023 8:27 AM EST Suggest preop visit * Telephone Encounter - Steph Whitney LPN - 05/04/2023 8:12 AM EST Received fax from [facility] Pre Anesthesia testing department. Patient is tentatively scheduledto have right knee replacement on 06/08/23. She had a pre admission appointment on 04/25/23. Her pre-op testing demonstrates polychromasia, polkilocytosis and microcytosis. Please evaluate and advise ispatient is optimized for elective surgery or if further evaluation, testing or intervention will beneeded prior to surgery. CXR report and labs placed in folder for review. documented in this encounter Plan of Treatment Upcoming Encounters Date Type Department Care Team (Late st Contact Info) Description 05/22/2023 9:45 AM EST Office Visit General Surgery, [facility] [address] [facility] [place] [address] MD 132 [facility] [place] [address] 05/29/2023 9:45 AM EST Office Visit Hematology/Oncology [facility] [address] [facility] [place] [address] Hari Hinton MD 200 [facility] [place] [address] 06/15/2023 1:00 PM EST Office Visit Cardiology, [facility] [address] [facility] [place] [address] [facility] [address] 07/17/2023 2:20 PM EDT Office Visit General Internal Medicine [facility] 200 [facility] [place] [address] Kenzie Pacheco MD 200 [facility] [place], [place] [address] Health Maintenance Due Date Last Done Comments DTaP,Tdap,and Td Vaccines (1 - Tdap) 1973 Colonoscopy 1999 Fecal Occult Blood Test 1999 Sigmoidoscopy 1999 COVID-19 Vaccine (4 - 2022- season) 2022 02/10/2022, 06/05/2020, 05/15/2020 Influenza Vaccine (FLU shot) (#1) 2022 03/22/2022, 02/26/2021, 12/18/2019, Additional history exists Albumin/Creatinine Ratio 07/08/2023 07/07/2022, 05/24 CKD PHOS USE SMARTSET 49668 07/08/202306/21, 12/10/2020, 12/26/2019 DXA Scan 07/20/2023 07/19/2021, 07/02/2019 GFR 10/24/2023 2023, 12/08/2022, 07/07/2022, Additional history exists Depression Screening 01/16/2024 01/15/2023 Mammogram 01/16/2024 01/15/2023, 090 04/2022, 02/18/2021, Additional history exists CKD HGB USE SMARTSET 62497 04/25/202404/25, 03/27/2023, 07/07/2022, Additional history exists Cologuard 08/11/2025 08/11/2022, 07/22, 08/04/2022 Colorectal Cancer Screening 08/11/2025 Diabetes Screening 2026 2023, 1 05/28/2022, 12/22/2022, Additional history exists Zoster Vaccines Completed 01/16/2020, 06/26/2019 Pneumococcal Vaccine: 65+ Years Completed 10/13/2020, 12/18/2019 VITAMIN D LEVEL ONCE IN A LIFETIME-USE SMARTSET# 35460 Completed 12/01/2021, 08/03/2021, 06/02/2021, Additional history exists [...] Advance Directives occurred with: Patient Care Teams Clinical Investigator Relationship Specialty Start Date End Date Kenzie Pacheco MD [address] [place], [place] [address] PCP - General Internal Medicine 06/26/19 documented as of this encounter
--- OUTSIDE RECORDS SUMMARY | 2023-06-08 14:12 | External Medical Summary | Summary of Care ---
Author Name Unknown Organization [facility] Address [address] [place] [address] Phone [phone] Care Team Providers Care Juke Box Mechanic Name Role Phone Kenzie Pacheco MD Primary Care Provider [phone] Reason for Visit * Reason Onset Date Comments Medication Refill 05/25/2023 Encounter Details Date Type Department Care Team (Late st Contact Info) Description 05/25/2023 Refill General Internal Medicine [facility] [address] [place] [address] Kenzie Pacheco MD 200 [place] [address] Allergies Active Allergy Reactions Criticality Noted Date Comments Morphine 12/25/2017 tachycardiac documented as of this encounter (statuses as of 05/25/2023) Medications Medication Sig Dispensed Refills Start Date [...] every 14 days. 6 mL 3 11/29/2022 Active Tamsulosin HCl 0.4 MG Oral Capsule [...] each evening 90 Tablet 2 05/25/2023 Active Montelukast Sodium 10 MG Oral Tablet (Singulair) Take 1 tablet daily each evening 90 Tablet 3 01/15/2023 4 Discontinue d(Refill) documented as of this encounter (statuses as of 05/25/2023) Active Problems Problem Noted Date Diagnosed Date [...] as of this encounter (statuses as of 05/25/2023) Resolved Problems Problem Noted Date Diagnosed Date Resolved Date Prediabetes 06/06/2021 01/04/2023 Overview: Per Prediabetes protocol Overweight (BMI 25.0-29.9) 07/08/2020 0 01/15/2023 Severe persistent asthma without complication 08/26/19 20 12/12/2021 Mild intermittent asthma with exacerbation 06/26/2019 08/26/2019 GERD (gastroesophageal reflux disease) 12/25/2017 12/12/2018 documented as of this encounter (statuses as of 05/25/2023) Immunizations Name Administration Dates Next Due COVID-19 mRNA, LNP-s, No Pre serve, 2-Dose Series ([employer]) 06/05/2020,05/15/2020 Covid-19, Mrna, Lnp-s, Pf, B ivalent, 30 Mcg, IM, 12 yrs and above ([employer]Pad) 02/10/2022 Pneumococcal Conjugate Vacc, 13 Valent (Prevnar) [...] encounter Miscellaneous Notes * Telephone Encounter - Gilma Aragon RP - 05/25/2023 6:02 PM EST Signed Prescriptions: Disp Refills Montelukast Sodium 10 MG Oral Tablet (Sing*90 Tab*2 Sig: Take 1 tablet daily each eveningAuthorizing Provider: Saman PACHECO User: GILMA ARAGON * Telephone Encounter - Gilma Aragon RP - 05/25/2023 6:02 PM EST Rerouted remaining refills to new pharmacy as requested. Thank you, Gilma Aragon, PharmD Clinical Pharmacist [facility] (formally Telepharmacy) [phone] 05/25/2023 6:02 PM documented in this encounter Plan of Treatment Upcoming Encounters Date Type Department Care Team (Late st Contact Info) Description 05/29/2023 9:45 AM EST Office Visit Hematology/Oncology [facility] [address] [place], [place] [address] Hari Hinton MD [address] [place] [address] 06/06/2023 2:30 PM EST Office Visit Cardiology, [facility] 132 [facility] [place] [address] Travon Kruse DO 132 [facility] [place] [address] 06/15/2023 1:00 PM EST Office Visit Cardiology, [facility] 132 [facility] [place] [address] [facility] [place] [address] 07/17/2023 2:20 PM EDT Office Visit General Internal Medicine [facility] [address] [facility] [place] [address] Kenzie Pacheco MD [address] [place] [facility] [place] [address] 12/25/2023 11:30 AM EDT Imaging Radiology [facility] 1st [facility] [address] [place] [address] Health Maintenance Due Date Last Done Comments DTaP,Tdap,and Td Vaccines (1 - Tdap) 1973 Colonoscopy 1999 Fecal Occult Blood Test 1999 Sigmoidoscopy 1999 COVID-19 Vaccine ( season) 2022 02/10/2022, 06/05/2020, 05/15/2020 Influenza Vaccine (FLU shot) (#1) 2022 03/22/2022, 02/26/2021, 12/18/2019, Additional history exists Albumin/Creatinine Ratio 07/08/2023 07/07/2022, 05/24 CKD PHOS USE SMARTSET 52679 07/08/202306/21, 12/10/2020, 12/26/2019 DXA Scan 07/20/2023 07/19/2021, 07/02/2019 GFR 10/24/2023 2023, 1208/2022, 07/07/2022, Additional history exists Depression Screening 01/16/2024 01/15/2023 Mammogram 01/16/2024 01/15/2023, 0904/2022, 02/18/2021, Additional history exists CKD HGB USE SMARTSET 38428 04/25/202404/25, 03/27/2023, 07/07/2022, Additional history exists Cologuard 08/11/2025 08/11/2022, 07/22, 08/04/2022 Colorectal Cancer Screening 08/11/2025 Diabetes Screening 2026 2023, 1 05/28/2022, 12/22/2022, Additional history exists Zoster Vaccines Completed 01/16/2020, 06/26/2019 Pneumococcal Vaccine: 65+ Years Completed 10/13/2020, 12/18/2019 VITAMIN D LEVEL ONCE IN A LIFETIME-USE SMARTSET# 33512 Completed 12/01/2021, 08/03/2021, 06/02/2021, Additional history exists [...] Advance Directives occurred with: Patient Care Teams Juke Box Mechanic Relationship Specialty Start Date End Date Kenzie Pacheco MD 200 [facility] [place] [address] PCP - General Internal Medicine 06/26/19 documented as of this encounter
--- OUTSIDE RECORDS SUMMARY | 2023-06-08 14:12 | External Medical Summary | Summary of Care ---
Author Name Unknown Organization [facility] Address [address] [place] [address] Phone [phone] Care Team Providers Care Law Instructor Name Role Phone Kenzie Pacheco MD Primary Care Provider [phone] Reason for Visit * Reason Onset Date Comments pre-op exam 05/04/2023 Encounter Details Date Type Department Care Team (Late st Contact Info) Description 05/04/2023 Telephone General Internal Medicine [facility] [address] [place] [address] Kenzie Pacheco MD 200 [facility] [place] [address] pre-op exam Allergies Active Allergy Reactions Criticality Noted Date Comments Morphine 12/25/2017 tachycardiac documented as of this encounter (statuses as of 05/10/2023) Medications Medication Sig Dispensed Refills Start Date [...] as of this encounter (statuses as of 05/10/2023) Active Problems Problem Noted Date Diagnosed Date [...] as of this encounter (statuses as of 05/10/2023) Resolved Problems Problem Noted Date Diagnosed Date Resolved Date Prediabetes 06/06/2021 01/04/2023 Overview: Per Prediabetes protocol Overweight (BMI 25.0-29.9) 07/08/2020 0 01/15/2023 Severe persistent asthma without complication 08/26/19 20 12/12/2021 Mild intermittent asthma with exacerbation 06/26/2019 08/26/2019 GERD (gastroesophageal reflux disease) 12/25/2017 12/12/2018 documented as of this encounter (statuses as of 05/10/2023) Immunizations Name Administration Dates Next Due COVID-19 mRNA, LNP-s, No Pre serve, 2-Dose Series ([employer]) 06/05/2020,05/15/2020 Covid-19, Mrna, Lnp-s, Pf, B ivalent, [...] 05/04/2023 8:12 AM EST Received fax from [facility] Pre Anesthesia testing department. Patient is tentatively [...] 9:45 AM EST Office Visit General Surgery, [facility] [place] [address] MD [address] [place] [address] 06/15/2023 1:00 PM EST Office Visit Cardiology, [facility] [address] [place] [address] [place], [facility] Cardiology [facility] [address] [place] [address] 07/17/2023 2:20 PM EDT Office Visit General Internal Medicine [facility] [address] [place] [address] Kenzie Pacheco MD 200 [facility] [place] [address] Health Maintenance Due Date Last Done Comments DTaP,Tdap,and Td Vaccines (1 - Tdap) 1974 Colonoscopy 1999 Fecal Occult Blood Test 1999 Sigmoidoscopy 1999 COVID-19 Vaccine ( season) 2022 02/10/2022, 06/05/2020, 05/15/2020 Influenza Vaccine (FLU shot) (#1) 2022 03/22/2022, 02/26/2021, 12/18/2019, Additional history exists Albumin/Creatinine Ratio 07/08/2023 07/07/2022, 05/24 CKD PHOS USE SMARTSET 13841 07/08/202306/21, 12/10/2020, 12/26/2019 DXA Scan 07/20/2023 07/19/2021, 07/02/2019 GFR 10/24/2023 2023, 1208/2022, 07/07/2022, Additional history exists Depression Screening 01/16/2024 01/15/2023 Mammogram 01/16/2024 01/15/2023, 04/2022, 02/18/2021, Additional history exists CKD HGB USE SMARTSET 62895 04/25/202404/25, 03/27/2023, 07/07/2022, Additional history exists Cologuard 08/11/2025 08/11/2022, 07/22, 08/04/2022 Colorectal Cancer Screening 08/11/2025 Diabetes Screening 2026 2023, 1 05/28/2022, 12/22/2022, Additional history exists Zoster Vaccines Completed 01/16/2020, 06/26/2019 Pneumococcal Vaccine: 65+ Years Completed 10/13/2020, 12/18/2019 VITAMIN D LEVEL ONCE IN A LIFETIME-USE SMARTSET# 82436 Completed 12/01/2021, 08/03/2021, 06/02/2021, Additional history exists [...] Advance Directives occurred with: Patient Care Teams Law Instructor Relationship Specialty Start Date End Date Kenzie Pacheco MD [address] [place] [address] PCP - General Internal Medicine 06/26/19 documented as of this encounter
--- OUTSIDE RECORDS SUMMARY | 2023-06-08 14:12 | External Medical Summary | Summary of Care ---
Author Name Unknown Organization [facility] Address [address] [place] [address] Phone [phone] Care Team Providers Care Editor Managing Newspaper Name Role Phone Kenzie Pacheco MD Primary Care Provider [phone] Reason for Visit * Reason Onset Date Comments pre-op exam 05/04/2023 Encounter Details Date Type Department Care Team (Late st Contact Info) Description 05/04/2023 Telephone General Internal Medicine [facility] [address] [place] [address] Kenzie Pacheco MD 200 [facility] [place] [address] pre-op exam Allergies Active Allergy Reactions Criticality [...] mRNA, LNP-s, No Pre serve, 2-Dose Series (Itineris) 06/05/2020,05/15/2020 Covid-19, Mrna, Lnp-s, Pf, B ivalent, [...] Encounter - Lizette Jackson OSA - 05/10/2023 9:13 AM EST Please call us to schedule a Pre-op apt with Dr. Pacheco. The number to call is [phone]. * Telephone Encounter - Lizette Jackson OSA - 05/08/2023 9:19 AM EST Lmom 05/08 * Telephone Encounter - Steph Whitney LPN - 05/07/2023 2:48 PM EST Please assist with preop appointment. * Telephone Encounter - Kenzie Pacheco MD - 05/04/2023 8:27 AM EST Suggest preop visit * Telephone Encounter - Steph Whitney LPN - 05/04/2023 8:12 AM EST Received fax from [facility] Pre Anesthesia testing department. Patient is tentatively [...] 9:45 AM EST Office Visit General Surgery, [facility] [address] [place] [address] MD [address] [place] [address] 06/15/2023 1:00 PM EST [facility] [address] [place] [address] [facility] Cardiology [facility] [address] [place] [address] 07/17/2023 2:20 PM EDT Office Visit General Internal Medicine [facility] 200 [facility] [place] [address] Kenzie Pacheco MD 200 [facility] [place] [address] Health Maintenance Due Date Last Done Comments DTaP,Tdap,and Td Vaccines (1 - Tdap) 1973 Colonoscopy 1999 Fecal Occult Blood Test 1999 Sigmoidoscopy 1999 COVID-19 Vaccine ( - 2022- season) 2022 02/10/2022, 06/05/2020, 05/15/2020 Influenza Vaccine (FLU shot) (#1) 2022 03/22/2022, 02/26/2021, 12/18/2019, Additional history exists Albumin/Creatinine Ratio 07/08/2023 07/07/2022, 05/24 CKD PHOS USE SMARTSET 39545 07/08/202306/21, 12/10/2020, 12/26/2019 DXA Scan 07/20/2023 07/19/2021, 07/02/2019 GFR 10/24/2023 2023, 1208/2022, 07/07/2022, Additional history exists Depression Screening 01/16/2024 01/15/2023 Mammogram 01/16/2024 01/15/2023, 0904/2022, 02/18/2021, Additional history exists CKD HGB USE SMARTSET 65045 04/25/202404/25, 03/27/2023, 07/07/2022, Additional history exists Cologuard 08/11/2025 08/11/2022, 07/22, 08/04/2022 Colorectal Cancer Screening 08/11/2025 Diabetes Screening 2026 2023, 1 05/28/2022, 12/22/2022, Additional history exists Zoster Vaccines Completed 01/16/2020, 06/26/2019 Pneumococcal Vaccine: 65+ Years Completed 10/13/2020, 12/18/2019 VITAMIN D LEVEL ONCE IN A LIFETIME-USE SMARTSET# 20467 Completed 12/01/2021, 08/03/2021, 06/02/2021, Additional history exists [...] Advance Directives occurred with: Patient Care Teams Editor Managing Newspaper Relationship Specialty Start Date End Date Kenzie Pacheco MD 200 [place] [address] PCP - General Internal Medicine 06/26/19 documented as of this encounter
--- OUTSIDE RECORDS SUMMARY | 2023-06-08 14:12 | External Medical Summary | Summary of Care ---
Author Name Unknown Organization [facility] Address [address] [place] [address] Phone [phone] Care Team Providers Care Program Trainer Name Role Phone Kenzie Pacheco MD Primary Care Provider [phone] Reason for Visit * Reason Onset Date Comments Precert Future 05/30/2023 Prolia Encounter Details Date Type Department Care Team (Late st Contact Info) Description 05/30/2023 Telephone Hematology/Oncology [facility] [address] [place] [address] Hari Hinton MD [address] [place] [address] Precert Future (Prolia) Allergies Active Allergy Reactions [...] mRNA, LNP-s, No Pre serve, 2-Dose Series (Skubana) 06/05/2020,05/15/2020 Covid-19, Mrna, Lnp-s, Pf, B ivalent, [...] 9:29 AM EST Received orders for Prolia. [facility]cdowell plan built and routed for signature. Will await auth. Pt had CBCD, BMP completed 04/25/23, will need updated Phos lab. Order placed. MyG sent to patient toinform. documented in this encounter Plan of Treatment Upcoming Encounters Date Type Department Care Team (Late st Contact Info) Description 06/06/2023 2:30 PM EST Office Visit Card[facility], [facility] [place] [address] Travon Kruse DO [address] [place] [address] 06/15/2023 1:00 PM EST Office Visit Cardiology, [facility] 132 [facility] [place] [address] [facility] Cardiology [facility] 132 [facility] [place] [address] 07/17/2023 2:20 PM EDT Office Visit General Internal Medicine [facility] [address] [place] [address] Kenzie Pacheco MD 200 [facility] [place] [address] 12/25/2023 11:30 AM EDT Imaging Radiology [facility] 1st [facility] 132 [facility] [place] [address] 01/08/2024 1:15 PM EDT Office Visit Hematology/Oncology [facility] 200 [facility] [place] [address] Hari Hinton MD 200 [facility] [place] [address] Scheduled Orders Name Type Priority Associated Diagnoses [...] 07/08/2023 07/07/2022, 05/24 CKD PHOS USE SMARTSET 37773 07/08/202306/21, 12/10/2020, 12/26/2019 DXA Scan 07/20/2023 07/19/2021, 07/02/2019 GFR 10/24/2023 2023, 1208/2022, 07/07/2022, Additional history exists Depression Screening 01/16/2024 01/15/2023 Mammogram 01/16/2024 01/15/2023, 0904/2022, 02/18/2021, Additional history exists CKD HGB USE SMARTSET 87949 04/25/202404/25, 03/27/2023, 07/07/2022, Additional history exists Cologuard 08/11/2025 08/11/2022, 07/22, 08/04/2022 Colorectal Cancer Screening 08/11/2025 Diabetes Screening 2026 2023, 1 05/28/2022, 12/22/2022, Additional history exists Zoster Vaccines Completed 01/16/2020, 06/26/2019 Pneumococcal Vaccine: 65+ Years Completed 10/13/2020, 12/18/2019 VITAMIN D LEVEL ONCE IN A LIFETIME-USE SMARTSET# 13835 Completed 12/01/2021, 08/03/2021, 06/02/2021, Additional history exists [...] Advance Directives occurred with: Patient Care Teams Program Trainer Relationship Specialty Start Date End Date Kenzie Pacheco MD 200 [place] [address] PCP - General Internal Medicine 06/26/19 documented as of this encounter
--- OUTSIDE RECORDS SUMMARY | 2023-06-08 14:12 | External Medical Summary | Summary of Care ---
Author Name Unknown Organization [facility] Address [address] [place] [address] Phone [phone] Care Team Providers Care Order Dispatcher Chief Name Role Phone Kenzie Pacheco MD Primary Care Provider [phone] Reason for Referral * Evaluate & Treat - Unlimited Visits (Within 30 days (routine)) - Pending Review Specialty Diagnoses / Procedures Referred By Kalli morocho Referred To Contact Hematology/Oncology / Hematology Oncology Diagnoses Ductal carcinoma in situ (DCIS) of right breast Jayne Way MD [address] [place] [address] Referral ID Status Reason Start Date Expiration Date Visits Requested Visits Authorized [id number] Pending Review Specialty Services Required 05/09/[phone] Question Answer Referral Priority Within 30 days (routine) Where should this appointment be scheduled? [facility] Reason for Referral Malignant Oncology (Solid Organ Cancer) Comments Right breast cancer * Evaluate & Treat - Unlimited Visits (Within 30 days (routine)) - Pending Review Specialty Diagnoses / Procedures Referred By Kalli morocho Referred To Contact Radiation Oncology Diagnoses Ductal carcinoma in situ (DCIS) of right breast Jayne Way MD [address] [place] [address] Referral ID Status Reason Start Date Expiration Date Visits Requested Visits Authorized [id number] Pending Review Specialty Services Required 05/09/[phone] Question Answer Referral Priority Within 30 days (routine) Where should this appointment be scheduled? [facility] What is the preferred location to have this test performed? Non-[facility] Site - [facility] Comments Right breast dcis Encounter Details Date Type Department Care Team (Late st Contact Info) Description 05/09/2023 Telephone [facility] General Surgery [address] [place] [address] MD [address] [place] [address] Allergies Active Allergy Reactions Criticality Noted Date Comments Morphine 12/25/2017 tachycardiac documented as of this encounter (statuses as of 05/09/2023) Medications Medication Sig Dispensed Refills Start Date [...] as of this encounter (statuses as of 05/09/2023) Active Problems Problem Noted Date Diagnosed Date [...] as of this encounter (statuses as of 05/09/2023) Resolved Problems Problem Noted Date Diagnosed Date Resolved Date Prediabetes 06/06/2021 01/04/2023 Overview: Per Prediabetes protocol Overweight (BMI 25.0-29.9) 07/08/2020 0 01/15/2023 Severe persistent asthma without complication 08/26/19 20 12/12/2021 Mild intermittent asthma with exacerbation 06/26/2019 08/26/2019 GERD (gastroesophageal reflux disease) 12/25/2017 12/12/2018 documented as of this encounter (statuses as of 05/09/2023) Immunizations Name Administration Dates Next Due COVID-19 mRNA, LNP-s, No Pre serve, 2-Dose Series ([employer]) 06/05/2020,05/15/2020 Covid-19, Mrna, Lnp-s, Pf, B ivalent, 30 Mcg, IM, 12 yrs and above ([employer]) 02/10/2022 Pneumococcal Conjugate Vacc, 13 Valent (Prevnar) [...] encounter Miscellaneous Notes * Telephone Encounter - Jayne Way MD - 05/09/2023 3:37 PM EST Pathology report discussed with pt (surgery done for ADH) Needs re-excision of posterior margin as per 2 mm margin guidelines. She is wondering if this is necessary. Will discuss option of radiation alone as per a large [facility] study. Med onc and rad onc ordered. A. 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 Lobular intraepithelial neoplasia type 1 (also known as Atypical Lobular Hyperplasia, ALH). Fibrocystic change. Columnar cell change/hyperplasia. Focal changes consistent with previous biopsy site. Calcifications present. (See Synoptic Data) documented in this encounter Plan of Treatment Upcoming Encounters Date Type Department Care Team (Late st Contact Info) Description 05/22/2023 9:45 AM EST Office Visit General Surgery, [facility] [address] [place] [address] MD [address] [place] [address] 06/15/2023 1:00 PM EST Office Visit Cardiology, [facility] 132 [facility] [place] [address] [facility] Cardiology [facility] 132 [facility] [place] [address] 07/17/2023 2:20 PM EDT Office Visit General Internal Medicine [facility] [place] [address] Kenzie Pacheco MD 200 [facility] [place] [address] Scheduled Referrals Name Type Priority Associated Diagnoses Orde r Schedule RADIATION/ONCOLOGY REFERRAL OP Referral Within 30 days (routine) Ductal carcinoma in situ (DCIS) of right breast Ordered: 05/09/2023 HEMATOLOGY/ONCOLOGY REFERRAL OP Referral Within 30 days (routine) Ductal carcinoma in situ (DCIS) of right breast Ordered: 05/09/2023 Health Maintenance Due Date Last Done Comments DTaP,Tdap,and Td Vaccines (1 - Tdap) 1974 Colonoscopy 1999 Fecal Occult Blood Test 1999 Sigmoidoscopy 1999 COVID-19 Vaccine ( - season) 2022 02/10/2022, 06/05/2020, 05/15/2020 Influenza Vaccine (FLU shot) (#1) 2022 03/22/2022, 02/26/2021, 12/18/2019, Additional history exists Albumin/Creatinine Ratio 07/08/2023 07/07/2022, 05/24 CKD PHOS USE SMARTSET 31893 07/08/202306/21, 12/10/2020, 12/26/2019 DXA Scan 07/20/2023 07/19/2021, 07/02/2019 GFR 10/24/2023 2023, 1208/2022, 07/07/2022, Additional history exists Depression Screening 01/16/2024 01/15/2023 Mammogram 01/16/2024 01/15/2023, 090 04/2022, 02/18/2021, Additional history exists CKD HGB USE SMARTSET 58137 04/25/202404/25, 03/27/2023, 07/07/2022, Additional history exists Cologuard 08/11/2025 08/11/2022, 07/22, 08/04/2022 Colorectal Cancer Screening 08/11/2025 Diabetes Screening 2026 2023, 1 05/28/2022, 12/22/2022, Additional history exists Zoster Vaccines Completed 01/16/2020, 06/26/2019 Pneumococcal Vaccine: 65+ Years Completed 10/13/2020, 12/18/2019 VITAMIN D LEVEL ONCE IN A LIFETIME-USE SMARTSET# 08750 Completed 12/01/2021, 08/03/2021, 06/02/2021, Additional history exists [...] in situ (DCIS) of right breast- Primary documented in this encounter Advance Directives Latest Code Status on File Code Status Date Activated Date Inactivated Comments Full Code 05/02/2023 7:00 AM 05/02/2023 2:32 PM This order reflects the patients wishes and were consensually agreed upon. Question Answer Comments Discussion of Advance Directives occurred with: Patient Care Teams Order Dispatcher Chief Relationship Specialty Start Date End Date Kenzie Pacheco MD [address] [facility] [place] [address] PCP - General Internal Medicine 06/26/19 documented as of this encounter
--- OUTSIDE RECORDS SUMMARY | 2023-06-08 14:12 | External Medical Summary | Summary of Care ---
Author Name Unknown Organization [facility] Address [address] [place] [address] Phone [phone] Care Team Providers Care Reconciliation Specialist Name Role Phone Kenzie Pacheco MD Primary Care Provider [phone] Encounter Details Date Type Department Care Team (Late st Contact Info) Description 05/30/2023 Orders Only Hematology/Oncology [facility] 200 [facility] [place] [address] Hari Hinton MD 200 [place] [address] Allergies Active Allergy Reactions Criticality Noted Date [...] mRNA, LNP-s, No Pre serve, 2-Dose Series ([employer]) 06/05/2020,05/15/2020 Covid-19, Mrna, Lnp-s, Pf, B ivalent, [...] 06/06/2023 2:30 PM EST Office Visit Cardiology, [facility] [address] [facility] [place] [address] [address], [address] [place] [address] 06/15/2023 1:00 PM EST Office Visit Cardiology, [facility] [address] [facility] [place] [address] Alex [facility] Cardiology [facility] 132 [facility] [place] [address] 07/17/2023 2:20 PM EDT Office Visit General Internal Medicine [facility] 200 [place] [address] Kenzie Pacheco MD [address] [place] [address] 12/25/2023 11:30 AM EDT Imaging Radiology [facility] [facility] [address] [place] [address] 01/08/2024 1:15 PM EDT Office Visit Hematology/Oncology [facility] 200 [place] [address] Hari Hinton MD [address] [place] [address] Health Maintenance Due Date Last Done Comments DTaP,Tdap,and Td Vaccines (1 - Tdap) 1974 Colonoscopy 1999 Fecal Occult Blood Test 1999 Sigmoidoscopy 1999 COVID-19 Vaccine (2022- season) 2022 02/10/2022, 06/05/2020, 05/15/2020 Influenza Vaccine (FLU shot) (#1) 2022 03/22/2022, 02/26/2021, 12/18/2019, Additional history exists Albumin/Creatinine Ratio 07/08/2023 07/07/2022, 05/24 CKD PHOS USE SMARTSET 42279 07/08/202306/21, 12/10/2020, 12/26/2019 DXA Scan 07/20/2023 07/19/2021, 07/02/2019 GFR 10/24/2023 2023, 1208/2022, 07/07/2022, Additional history exists Depression Screening 01/16/2024 01/15/2023 Mammogram 01/16/2024 01/15/2023, 0904/2022, 02/18/2021, Additional history exists CKD HGB USE SMARTSET 06845 04/25/202404/25, 03/27/2023, 07/07/2022, Additional history exists Cologuard 08/11/2025 08/11/2022, 07/22, 08/04/2022 Colorectal Cancer Screening 08/11/2025 Diabetes Screening 2026 2023, 1 05/28/2022, 12/22/2022, Additional history exists Zoster Vaccines Completed 01/16/2020, 06/26/2019 Pneumococcal Vaccine: 65+ Years Completed 10/13/2020, 12/18/2019 VITAMIN D LEVEL ONCE IN A LIFETIME-USE SMARTSET# 53367 Completed 12/01/2021, 08/03/2021, 06/02/2021, Additional history exists [...] Advance Directives occurred with: Patient Care Teams Reconciliation Specialist Relationship Specialty Start Date End Date Kenzie Pacheco MD [address] [place] [address] PCP - General Internal Medicine 06/26/19 documented as of this encounter
--- OUTSIDE RECORDS SUMMARY | 2023-06-08 14:12 | External Medical Summary | Summary of Care ---
Author Name Unknown Organization [facility] Address [address] [place] [address] Phone [phone] Care Team Providers Care Psychology Fellow Name Role Phone Kenzie Pacheco MD Primary Care Provider [phone] Reason for Visit * Reason Onset Date Comments NEW PATIENT 05/10/2023 ELLIOT SEEN SOONER Encounter Details Date Type Department Care Team (Late st Contact Info) Description 05/10/2023 Telephone Hematology/Oncology [facility] [address] [place] [address] Hari Hinton MD [address] [place] [address] NEW PATIENT (ELLIOT SEEN SOONER) Allergies Active Allergy Reactions Criticality Noted Date [...] encounter Miscellaneous Notes * Telephone Encounter - Mojgan Woodall CMA - 05/10/2023 9:37 AM EST Referral received for patient to be seen for New Oncology Consultation. Called and spoke with Nakul offered 05/22, 05/24, 05/25 patient declined. Offered 05/29 at 945am and patient agreed. documented in this encounter Plan of Treatment Upcoming Encounters Date Type Department Care Team (Late st Contact Info) Description 05/22/2023 9:45 AM EST Office Visit General Surgery, [facility] 132 [facility] [place] [address] MD 132 [facility] [place] [address] 05/29/2023 9:45 AM EST Office Visit Hematology/Oncology [facility] [address] [place] [address] Hari Hinton MD 200 [facility] [place] [address] 06/15/2023 1:00 PM EST Office Visit Cardiology, [facility] 132 [facility] [place] [address] [facility] Cardiology [facility] 132 [facility] [place] [address] 07/17/2023 2:20 PM EDT Office Visit General Internal Medicine [facility] [address] [place] [address] Kenzie Pacheco MD [address] [place] [address] Health Maintenance Due Date Last Done Comments DTaP,Tdap,and Td Vaccines (1 - Tdap) 1974 Colonoscopy 1999 Fecal Occult Blood Test 1999 Sigmoidoscopy 1999 COVID-19 Vaccine ( season) 2022 02/10/2022, 06/05/2020, 05/15/2020 Influenza Vaccine (FLU shot) (#1) 2022 03/22/2022, 02/26/2021, 12/18/2019, Additional history exists Albumin/Creatinine Ratio 07/08/2023 07/07/2022, 05/24 CKD PHOS USE SMARTSET 65736 07/08/202306/21, 12/10/2020, 12/26/2019 DXA Scan 07/20/2023 07/19/2021, 07/02/2019 GFR 10/24/2023 2023, 12/0 08/2022, 07/07/2022, Additional history exists Depression Screening 01/16/2024 01/15/2023 Mammogram 01/16/2024 01/15/2023, 090 04/2022, 02/18/2021, Additional history exists CKD HGB USE SMARTSET 82099 04/25/202404/25, 03/27/2023, 07/07/2022, Additional history exists Cologuard 08/11/2025 08/11/2022, 07/22, 08/04/2022 Colorectal Cancer Screening 08/11/2025 Diabetes Screening 2026 2023, 1 05/28/2022, 12/22/2022, Additional history exists Zoster Vaccines Completed 01/16/2020, 06/26/2019 Pneumococcal Vaccine: 65+ Years Completed 10/13/2020, 12/18/2019 VITAMIN D LEVEL ONCE IN A LIFETIME-USE SMARTSET# 62326 Completed 12/01/2021, 08/03/2021, 06/02/2021, Additional history exists [...] Advance Directives occurred with: Patient Care Teams Psychology Fellow Relationship Specialty Start Date End Date Kenzie Pacheco MD 200 [facility] [place] [address] PCP - General Internal Medicine 06/26/19 documented as of this encounter
--- OUTSIDE RECORDS SUMMARY | 2023-06-08 14:13 | External Medical Summary | Summary of Care ---
Author Name Unknown Organization [facility] Address [address] [place] [address] Phone [phone] Care Team Providers Care Clay Maker Name Role Phone Kenzie Pacheco MD Primary Care Provider [phone] Reason for Visit * Reason Onset Date Comments Follow Up 05/04/2023 Post op call Encounter Details Date Type Department Care Team (Late st Contact Info) Description 05/04/2023 9:00 AM EST Scheduled Telephone General Surgery, [facility] [address] [place] [address] [facility] Nurse Gen Surg [facility] 132 [place] [address] Arrived Allergies Active Allergy Reactions Criticality Noted Date Comments Morphine 12/25/2017 tachycardiac documented as of this encounter (statuses as of 05/04/2023) Medications Medication Sig Dispensed Refills Start Date [...] as of this encounter (statuses as of 05/04/2023) Active Problems Problem Noted Date Diagnosed Date [...] as of this encounter (statuses as of 05/04/2023) Resolved Problems Problem Noted Date Diagnosed Date Resolved Date Prediabetes 06/06/2021 01/04/2023 Overview: Per Prediabetes protocol Overweight (BMI 25.0-29.9) 07/08/2020 0 01/15/2023 Severe persistent asthma without complication 08/26/19 20 12/12/2021 Mild intermittent asthma with exacerbation 06/26/2019 08/26/2019 GERD (gastroesophageal reflux disease) 12/25/2017 12/12/2018 documented as of this encounter (statuses as of 05/04/2023) Immunizations Name Administration Dates Next Due COVID-19 [...] encounter Miscellaneous Notes * Telephone Encounter - Papo Martinez, MED ASSIST - 05/04/2023 8:37 AM EST PATIENT IS S/p right breast excisional biopsy with preoperative localization on 05/02/[address] Called and left message and post op date. documented in this encounter Plan of Treatment Upcoming Encounters Date Type Department Care Team (Late st Contact Info) Description 05/22/2023 9:45 AM EST Office Visit General Surgery, [facility] [place] [address] MD [address] [facility] [place] [address] 06/15/2023 1:00 PM EST Office Visit Cardiology, [facility] 132 [facility] [place] [address] [facility] Cardiology [facility] [address] 07/17/2023 2:20 PM EDT Office Visit General Internal Medicine [facility] 200 [facility] [place] [address] Kenzie Pacheco MD 200 [facility] [place] [address] Health Maintenance Due Date Last Done Comments DTaP,Tdap,and Td Vaccines (1 - Tdap) 1974 Colonoscopy 1999 Fecal Occult Blood Test 1999 Sigmoidoscopy 1999 COVID-19 Vaccine (4 - season) 2022 02/10/2022, 06/05/2020, 05/15/2020 Influenza Vaccine (FLU shot) (#1) 2022 03/22/2022, 02/26/2021, 12/18/2019, Additional history exists Albumin/Creatinine Ratio 07/08/2023 07/07/2022, 05/24 CKD PHOS USE SMARTSET 19473 07/08/202306/21, 12/10/2020, 12/26/2019 DXA Scan 07/20/2023 07/19/2021, 07/02/2019 GFR 10/24/2023 2023, 1208/2022, 07/07/2022, Additional history exists Depression Screening 01/16/2024 01/15/2023 Mammogram 01/16/2024 01/15/2023, 0904/2022, 02/18/2021, Additional history exists CKD HGB USE SMARTSET 88780 04/25/202404/25, 03/27/2023, 07/07/2022, Additional history exists Cologuard 08/11/2025 08/11/2022, 07/22, 08/04/2022 Colorectal Cancer Screening 08/11/2025 Diabetes Screening 2026 2023, 1 05/28/2022, 12/22/2022, Additional history exists Zoster Vaccines Completed 01/16/2020, 06/26/2019 Pneumococcal Vaccine: 65+ Years Completed 10/13/2020, 12/18/2019 VITAMIN D LEVEL ONCE IN A LIFETIME-USE SMARTSET# 36756 Completed 12/01/2021, 08/03/2021, 06/02/2021, Additional history exists [...] Advance Directives occurred with: Patient Care Teams Clay Maker Relationship Specialty Start Date End Date Kenzie Pacheco MD 200 [facility] [place] [address] PCP - General Internal Medicine 3/5/20 documented as of this encounter
--- OUTSIDE RECORDS SUMMARY | 2023-06-08 14:13 | External Medical Summary | Summary of Care ---
Author Name Unknown Organization [facility] Address [address] [place] [address] Phone [phone] Care Team Providers Care Director Emergency Name Role Phone Kenzie Pacheco MD Primary Care Provider [phone] Encounter Details Date Type Department Care Team (Late st Contact Info) Description 04/26/2023 Orders Only General Internal Medicine [facility] 200 [facility] [place] [facility] [place] [address] Kenzie Pacheco MD 200 [place] [address] Allergies Active Allergy Reactions Criticality Noted Date Comments Morphine 12/25/2017 tachycardiac documented as of this encounter (statuses as of 04/26/2023) Medications Medication Sig Dispensed Refills Start Date [...] Additional Information Patient not taking.Reported on 01/15/2023 Alendronate Sodium 70 MG Oral Tablet (Fosamax)Indicatio ns:High risk for fracture due to osteoporosis by DEXA scan Take 1 Tablet by mouth once a week. with 8 oz. water 30 minutes before first meal of the day. Remain upright for 30 min after taking tablet 15 Tablet 3 07/13/2022 Active Xolair 150 MG/ML Subcutaneous Solution Prefilled Syringe (Omalizumab)Indica tions:Elevated IgE level Inject 150 mg (1 syringe) under the skin every 14 days. 6 mL 3 11/29/2022 05/30/2023 Active Montelukast Sodium 10 MG Oral Tablet [...] mg by mouth every evening. 0 Active documented as of this encounter (statuses as of 04/26/2023) Active Problems Problem Noted Date Diagnosed Date [...] as of this encounter (statuses as of 04/26/2023) Resolved Problems Problem Noted Date Diagnosed Date Resolved Date Prediabetes 06/06/2021 01/04/2023 Overview: Per Prediabetes protocol Overweight (BMI 25.0-29.9) 07/08/2020 0 01/15/2023 Severe persistent asthma without complication 08/26/19 20 12/12/2021 Mild intermittent asthma with exacerbation 06/26/2019 08/26/2019 GERD (gastroesophageal reflux disease) 12/25/2017 12/12/2018 documented as of this encounter (statuses as of 04/26/2023) Immunizations Name Administration Dates Next Due COVID-19 mRNA, LNP-s, No Pre serve, 2-Dose Series ([employer]) 06/05/2020,05/15/2020 Covid-19, Mrna, Lnp-s, Pf, B ivalent, [...] Care Team (Late st Contact Info) Description 05/01/2023 11:30 AM EST Imaging Radiology [address], [address] [place] [address] 05/01/2023 12:00 PM EST Imaging Radiology [facility] [address] [place] [address] 05/02/2023 8:00 AM EST Hospital Encounter OR [facility], Operating Room [facility] [address] [place] [address] MD [address] [place] [address] 05/02/2023 8:00 AM EST - 05/02/2023 9:13 AM EST Surgery OR [facility], Operating Room [facility] [address] [place] [address] MD [address] [place] [address] EXCISION OF CYST OR TUMOR BREAST 05/02/2023 3:20 PM EST Imaging Radiology [facility] [address] [facility] [address] [place] [address] 05/04/2023 9:00 AM EST Scheduled Telephone General Surgery, [facility] [address] [place] [address] Alex Nurse Gen Surg [facility] [address] [place] [address] 05/17/2023 10:00 AM EST Office Visit General Surgery, [facility] [address] [place] [address] MD [address] [place] [address] 06/15/2023 1:00 PM EST Office Visit Cardiology, [facility] [address] [place] [address] Alex [facility] Cardiology Drew [address] [place] [address] 07/17/2023 2:20 PM EDT Office Visit General Internal Medicine [facility] 200 [facility] [place] [address] Kenzie Pacheco MD 200 [facility] [place] [address] Scheduled Procedures Name Priority Associated Diagnoses Date/Ti me EXCISION OF CYST OR TUMOR BREAST Atypical hyperplasia of breast 05/02/2023 8:00 AM EST EXCISION OF BREAST LESION RADIOLOGICAL MARKER Atypical hyperplasia of breast 05/02/2023 8:00 AM EST Health Maintenance Due Date Last Done Comments DTaP,Tdap,and Td Vaccines (1 - Tdap) 1974 Colonoscopy 1999 Fecal Occult Blood Test 1999 Sigmoidoscopy 1999 COVID-19 Vaccine ( season) 2022 02/10/2022, 06/05/2020, 05/15/2020 Influenza Vaccine (FLU shot) (#1) 2022 03/22/2022, 02/26/2021, 12/18/2019, Additional history exists Albumin/Creatinine Ratio 07/08/2023 07/07/2022, 05/24 CKD PHOS USE SMARTSET 50182 07/08/202306/21, 12/10/2020, 12/26/2019 DXA Scan 07/20/2023 07/19/2021, 07/02/2019 GFR 09/26/2023 2023, 1208/2022, 07/07/2022, Additional history exists Depression Screening 01/16/2024 01/15/2023 Mammogram 01/16/2024 01/15/2023, 04/2022, 02/18/2021, Additional history exists CKD HGB USE SMARTSET 85130 03/27/202404/25, 03/27/2023, 07/07/2022, Additional history exists Cologuard 08/11/2025 08/11/2022, 07/22, 08/04/2022 Colorectal Cancer Screening 08/11/2025 Diabetes Screening 03/27/2026 2023, 1 05/28/2022, 12/22/2022, Additional history exists Zoster Vaccines Completed 01/16/2020, 06/26/2019 Pneumococcal Vaccine: 65+ Years Completed 10/13/2020, 12/18/2019 VITAMIN D LEVEL ONCE IN A LIFETIME-USE SMARTSET# 04857 Completed 12/01/2021, 08/03/2021, 06/02/2021, Additional history exists GARDASIL-HPV IMMUNIZATION SERIES Aged Out No longer eligible based on patient's age to complete this topic MENINGOCOCCAL (MENACTRA/MENVEO) Aged Out No longer eligible based on patient's age to complete this topic documented as of this encounter Medical Devices Not on filedocumented as of this encounter Procedures Procedure Name Priority Date/Time Associated Diagnosis Comments CHEMISTRY-OUTSIDE Routine 2023 documented in this encounter Results * (ABNORMAL) CHEMISTRY-OUTSIDE (2023) Not all results display below - see scan for full detail OUTSIDE LAB (SEE SCANNED REPORT) Comment:SEE SCAN - CBCD, PTI NR, BMP CREATININE-OUTSID E LAB 0.81 0.6 - 1.2 MG/DL OUTSIDE LAB (SEE SCANNED REPORT) EGFR-OUTSIDE LAB 74.1 ML/MIN OUT SIDE LAB (SEE SCANNED REPORT) POTASSIUM-OUTSIDE LAB 4.7 3.5 - 5.1 MMOL/L OUTSIDE LAB (SEE SCANNED REPORT) GLUCOSE-OUTSIDE LAB 88 70 - 99 MG/DL OUTSIDE LAB (SEE SCANNED REPORT) HOURS FASTING OUTSID E LAB (SEE SCANNED REPORT) TRIGLYCERIDES-OUT SIDE LAB OUTSIDE LAB (SEE SCANNED REPORT) CHOLESTEROL-OUTSI DE LAB OUTSIDE LAB (SEE SCANNED REPORT) HDL-OUTSIDE LAB OUTS RHODA LAB (SEE SCANNED REPORT) CHOL/HDL RATIO-OUTSIDE LAB OUTSIDE LA B (SEE SCANNED REPORT) LDL (CALCULATED)-OUTS RHODA LAB OUTSIDE LAB (SEE SCANNED REPORT) LDL (DIRECT MEASURE)-OUTSIDE LAB OUTSIDE LAB (SEE SCANNED REPORT) HEMOGLOBIN, [id number] LAB OUTSIDE LAB (SEE SCANNED REPORT) PHOSPHORUS-OUTSID E LAB OUTSIDE LAB (SEE SCANNED REPORT) PTH-OUTSIDE LAB OUTS RHODA LAB (SEE SCANNED REPORT) MICROALBUMIN RATIO-OUTSIDE LAB OUTSIDE LA B (SEE SCANNED REPORT) PROTEIN, UA-OUTSIDE LAB OUTSIDE LAB (SEE SCANNED REPORT) HEMOGLOBIN-OUTSID E LAB 11.6(A) 12.0 - 16.0 G/DL OUTSIDE LAB (SEE SCANNED REPORT) 2023 Tyrone Wilson DO LABORATORY OUTSIDE LAB (SEE SCANNED REPORT) documented in this encounter Care Teams Director Emergency Relationship Specialty Start Date End Date Kenzie Pacheco MD 200 [facility] [place] [address] PCP - General Internal Medicine 06/26/19 documented as of this encounter
--- OUTSIDE RECORDS SUMMARY | 2023-06-08 14:13 | External Medical Summary | Summary of Care ---
Author Name Unknown Organization [facility] Address [address] [place] [address] Phone [phone] Care Team Providers Care Threat Monitoring Analyst Name Role Phone Kenzie Pacheco MD Primary Care Provider [phone] Reason for Visit * Reason Onset Date Comments pre-op exam 05/04/2023 Encounter Details Date Type Department Care Team (Late st Contact Info) Description 05/04/2023 Telephone General Internal Medicine [facility] 200 [place] [address] Kenzie Pacheco MD 200 [facility] [place] [address] pre-op exam Allergies Active Allergy Reactions Criticality Noted Date Comments Morphine 12/25/2017 tachycardiac documented as of this encounter (statuses as of 05/08/2023) Medications Medication Sig Dispensed Refills Start Date [...] as of this encounter (statuses as of 05/08/2023) Active Problems Problem Noted Date Diagnosed Date [...] as of this encounter (statuses as of 05/08/2023) Resolved Problems Problem Noted Date Diagnosed Date Resolved Date Prediabetes 06/06/2021 01/04/2023 Overview: Per Prediabetes protocol Overweight (BMI 25.0-29.9) 07/08/2020 0 01/15/2023 Severe persistent asthma without complication 08/26/19 20 12/12/2021 Mild intermittent asthma with exacerbation 06/26/2019 08/26/2019 GERD (gastroesophageal reflux disease) 12/25/2017 12/12/2018 documented as of this encounter (statuses as of 05/08/2023) Immunizations Name Administration Dates Next Due COVID-19 mRNA, LNP-s, No Pre serve, 2-Dose Series ([employer]) 06/05/2020,05/15/2020 Covid-19, Mrna, Lnp-s, Pf, B ivalent, [...] 05/04/2023 8:12 AM EST Received fax from [facility] Pre Anesthesia testing department. Patient is tentatively [...] 9:45 AM EST Office Visit General Surgery, [facility] [address] [employer] [place] [address] MD [address] [place] [address] 06/15/2023 1:00 PM EST Office Visit Cardiology, [facility] [address] [place] [address] [facility] Cardiology [facility] [address] [place] [address] 07/17/2023 2:20 PM EDT Office Visit General Internal Medicine [place] Ted Zavala [address] [place] [address] Kenzie Pacheco MD [address] [facility] [place] [address] Health Maintenance Due Date Last Done Comments DTaP,Tdap,and Td Vaccines (1 - Tdap) 1974 Colonoscopy 1999 Fecal Occult Blood Test 1999 Sigmoidoscopy 1999 COVID-19 Vaccine (4 - 2022- season) 2022 02/10/2022, 06/05/2020, 05/15/2020 Influenza Vaccine (FLU shot) (#1) 2022 03/22/2022, 02/26/2021, 12/18/2019, Additional history exists Albumin/Creatinine Ratio 07/08/2023 07/07/2022, 05/24 CKD PHOS USE SMARTSET 69168 07/08/202306/21, 12/10/2020, 12/26/2019 DXA Scan 07/20/2023 07/19/2021, 07/02/2019 GFR 10/24/2023 2023, 1208/2022, 07/07/2022, Additional history exists Depression Screening 01/16/2024 01/15/2023 Mammogram 01/16/2024 01/15/2023, 0904/2022, 02/18/2021, Additional history exists CKD HGB USE SMARTSET 59650 04/25/202404/25, 03/27/2023, 07/07/2022, Additional history exists Cologuard 08/11/2025 08/11/2022, 07/22, 08/04/2022 Colorectal Cancer Screening 08/11/2025 Diabetes Screening 2026 2023, 1 05/28/2022, 12/22/2022, Additional history exists Zoster Vaccines Completed 01/16/2020, 06/26/2019 Pneumococcal Vaccine: 65+ Years Completed 10/13/2020, 12/18/2019 VITAMIN D LEVEL ONCE IN A LIFETIME-USE SMARTSET# 47243 Completed 12/01/2021, 08/03/2021, 06/02/2021, Additional history exists [...] Advance Directives occurred with: Patient Care Teams Threat Monitoring Analyst Relationship Specialty Start Date End Date Kenzie Pacheco MD 200 [facility] [place] [address] PCP - General Internal Medicine 06/26/19 documented as of this encounter
--- OUTSIDE RECORDS SUMMARY | 2023-06-08 14:13 | External Medical Summary | Summary of Care ---
Author Name Unknown Organization [facility] Address [address] [place] [address] Phone [phone] Care Team Providers Care Forensic Science Technician Name Role Phone Kenzie Pacheco MD Primary Care Provider [phone] Reason for Visit * Reason Onset Date Comments Medication Refill 2023 Encounter Details Date Type Department Care Team (Late st Contact Info) Description 2023 Refill General Internal Medicine [facility] [address] [place] [address] Kenzie Pacheco MD [address] [place] [address] High risk for fracture due to osteoporosis by DEXA scan Allergies Active Allergy Reactions Criticality Noted Date [...] 14 days. 6 mL 3 11/29/2022 4 Active Montelukast Sodium 10 MG Oral Tablet [...] taking tablet 15 Tablet 1 04/26/2023 Active Alendronate Sodium 70 MG Oral Tablet (Fosamax)Indicati ons:High risk for fracture due to osteoporosis by DEXA scan Take 1 Tablet by mouth once a week. with 8 oz. water 30 minutes before first meal of the day. Remain upright for 30 min after taking tablet 15 Tablet 3 07/13/2022 4 Discontinue d(Refill) documented as of this [...] mRNA, LNP-s, No Pre serve, 2-Dose Series (Retrophin) 06/05/2020,05/15/2020 Covid-19, Mrna, Lnp-s, Pf, B ivalent, 30 Mcg, IM, 12 yrs and above (Retrophin) 02/10/2022 Pneumococcal Conjugate Vacc, 13 Valent (Prevnar) [...] encounter Miscellaneous Notes * Telephone Encounter - Nohemi Puentes [facility] - 04/26/2023 3:44 PM ESTSigned Prescriptions: Disp Refills Alendronate Sodium 70 MG Oral Tablet (Fosa*15 Tab*1 Sig: Take 1 Tablet by mouth once a week. with 8 oz. water 30 minutes before first meal of the day. Remain upright for 30 min after taking tabletAuthorizing Provider: Saman PACHECO User: NOHEMI PUENTES- documented in this encounter Plan of Treatment Upcoming Encounters Date Type Department Care Team (Late st Contact Info) Description 05/01/2023 11:30 AM EST Imaging Radiology [address] [place] [id number] 05/01/2023 12:00 PM EST Imaging Radiology [facility] [address] [place] [address] 05/02/2023 8:00 AM EST Hospital Encounter OR [facility], Operating Room [facility] [address] [id number] MD [address] [place] [address] 05/02/2023 8:00 AM EST - 05/02/2023 9:13 AM EST Surgery OR [facility], Operating Room [facility] [address] [id number] MD [address] [place] [address] EXCISION OF CYST OR TUMOR BREAST 05/02/2023 3:20 PM EST Imaging Radiology [address] [facility] [place] [address] 05/04/2023 9:00 AM EST Scheduled Telephone General Surgery, [facility] [address] [facility] [place] [address] Alex, Nurse Gen Surg [facility] 132 [facility] [place] [address] 05/17/2023 10:00 AM EST Office Visit General Surgery, [facility] [address] [facility] [place] [address] MD [address] [place] [address] 06/15/2023 1:00 PM EST Office Visit Cardiology, [facility] [address] [facility] [place] [address] [facility] Cardiology [address] [place] [address] 07/17/2023 2:20 PM EDT Office Visit General Internal Medicine [facility] [address] [facility] [place] [address] Kenzie Pacheco MD [address] [facility] [place] [place] [address] Scheduled Procedures Name Priority Associated Diagnoses Date/Ti [...] 07/08/2023 07/07/2022, 05/24 CKD PHOS USE SMARTSET 47331 07/08/202306/21, 12/10/2020, 12/26/2019 DXA Scan 07/20/2023 07/19/2021, 07/02/2019 GFR 10/24/2023 2023, 1208/2022, 07/07/2022, Additional history exists Depression Screening 01/16/2024 01/15/2023 Mammogram 01/16/2024 01/15/2023, 090 04/2022, 02/18/2021, Additional history exists CKD HGB USE SMARTSET 34129 04/25/202404/25, 03/27/2023, 07/07/2022, Additional history exists Cologuard 08/11/2025 08/11/2022, 07/22, 08/04/2022 Colorectal Cancer Screening 08/11/2025 Diabetes Screening 2026 2023, 1 05/28/2022, 12/22/2022, Additional history exists Zoster Vaccines Completed 01/16/2020, 06/26/2019 Pneumococcal Vaccine: 65+ Years Completed 10/13/2020, 12/18/2019 VITAMIN D LEVEL ONCE IN A LIFETIME-USE SMARTSET# [id number] Completed 12/01/2021, 08/03/2021, 06/02/2021, Additional history exists GARDASIL-HPV IMMUNIZATION SERIES Aged Out No longer eligible based on patient's age to complete this topic MENINGOCOCCAL (MENACTRA/MENVEO) Aged Out No longer eligible based on patient's age to complete this topic documented as of this encounter Medical Devices Not on filedocumented as of this encounter Visit Diagnoses Diagnosis High risk for fracture due to osteoporosis by DEXA scan Osteoporosis, unspecified Atypical hyperplasia of breast Hypertrophy of breast documented in this encounter Care Teams Forensic Science Technician Relationship Specialty Start Date End Date Kenzie Pacheco MD [address] [facility] [place] [address] PCP - General Internal Medicine 06/26/19 documented as of this encounter
--- OUTSIDE RECORDS SUMMARY | 2023-06-08 14:13 | External Medical Summary | Summary of Care ---
Author Name Unknown Organization [facility] Address [address] [place] [address] Phone [phone] Care Team Providers Care Lens Assistant Name Role Phone Kenzie Pacheco MD Primary Care Provider [phone] Reason for Visit * Auth/Cert Specialty Diagnoses / Procedures Referred By Kalli t Referred To Contact Diagnoses Atypical hyperplasia of breast Atypical hyperplasia of breast [N60.99] Procedures BREAST LESION,OTHER,EXCISION EXC BREAST LESION RADMARK EXCISION OF CYST OR TUMOR BREAST EXCISION OF BREAST LESION RADIOLOGICAL MARKER Referral ID Status Reason Start Date Expiration Date Visits Re quested Visits Authorized [id number] Encounter Details Date Type Department Care Team (Latest Contact Info) Description 05/02/2023 6:49 AM EST - 05/02/2023 10:32 AM EST Hospital Encounter OR [facility], Operating Room [facility] [place] [phone] [address] MD [address] [place] [id number] Discharge Disposition: Home - Self Care Allergies Active Allergy Reactions Criticality Noted Date Comments Morphine 12/25/2017 tachycardiac documented as of this encounter (statuses as of 05/02/2023) Medications Medication Sig Dispensed Refills Start Date End Date Status Spacer/Aero-Hold Chamber MaskIndications: Mild persistent asthma without complication Use with inhaler 1 Each 0 1 Active Tylenol 325 MG Oral Capsule (Acetaminophen) Take by mouth. 0 Activ e Naproxen Sodium 220 MG Oral Capsule Take 1 Capsule by mouth 2 times a day with morning and evening meals. 0 Active Fluocinonide 0.05 % External Solution APPLY A FEW DROPS TO THE INVOLVED AREA TWICE A DAY 0 2 Active Vitamin D3 25 MCG (1000 UT) Oral Tablet (Vitamin D3) Take 1 Tablet by mouth in the morning. 0 2 Active Ketotifen Fumarate 0.025 % Ophthalmic Solution (Zaditor) Use 1 drop in each eye twice daily as needed for allergic eye symptoms 5 mL 6 2 Active EPINEPHrine 0.3 MG/0.3ML Injection Solution Auto-injector (Autoinjector) For a severe reaction: Inject in outer thigh following instructions on package and go to the Emergency room. 2 Each 3 2 Active Additional Information Patient not taking.Reported on 01/15/2023 guaiFENesin ER 600 MG Oral Tablet Extended Release 12 Hour (Mucinex) Use 1-2 tablets every 12 hours for excessive chest mucus production 0 2 Active Additional Information Patient not taking.Reported on 2023 Cetirizine HCl 10 MG Oral Tablet (ZyrTEC) Take by mouth 1 Tablet in the morning AND 1 Tablet before bedtime. Take one tablet daily for nasal allergy symptoms. 60 Tablet 11 2 Active Additional Information Patient not taking.Reported on 2023 Levalbuterol Tartrate 45 MCG/ACT Inhalation Aerosol (Xopenex Hfa)Indications: Severe persistent asthma with acute exacerbation Inhale 2 Puffs by mouth every 4 hours as needed for Wheezing or Shortness of Breath (cough). 45 g 3 2 Active Budesonide-Formo terol Fumarate 160-4.5 MCG/ACT Inhalation Aerosol (Symbicort) Inhale 2 Puffs by mouth in the morning and 2 Puffs before bedtime. 10.2 g 3 2 Active Additional Information Patient not taking.Reported on 2023 Nitroglycerin 0.4 MG Sublingual Tablet Sublingual (Nitrostat) Place 1 Tablet under the tongue every 5 minutes as needed for Pain, Chest. up to 3 doses in 15 minutes 25 Tablet 11 2 Active Additional Information Patient not taking.Reported on 01/15/2023 Xolair 150 MG/ML Subcutaneous Solution Prefilled Syringe (Omalizumab)Hannah cations:Elevated IgE level Inject 150 mg (1 syringe) under the skin every 14 days. 6 mL 3 3 08/22/19 24 Active Montelukast Sodium 10 MG Oral Tablet (Singulair) Take 1 tablet daily each evening 90 Tablet 3 3 Active Tamsulosin HCl 0.4 MG Oral Capsule (Flomax) Take 1 Capsule by mouth in the morning. 30 Capsule 3 3 Active Additional Information Patient not taking.Reported on 2023 Famotidine 20 MG Oral Tablet (Pepcid) Take 1 tablet twice daily for persistent heartburn, acid reflux 180 Tablet 2 3 Active Repatha SureClick 140 MG/ML Subcutaneous Solution Auto-injector (evolocumab)Hannah cations:Dyslipid emia, goal LDL below 70 Inject 140 mg under the skin every 14 days. Remove from refrigerator 30 minutes prior to injection. 6 mL 3 3 Active Esomeprazole Magnesium 40 MG Oral Packet (NexIUM) Take 40 mg by mouth every evening. 0 Active Alendronate Sodium 70 MG Oral Tablet (Fosamax)Indicat ions:High risk for fracture due to osteoporosis by DEXA scan Take 1 Tablet by mouth once a week. with 8 oz. water 30 minutes before first meal of the day. Remain upright for 30 min after taking tablet 15 Tablet 1 4 Active Alendronate Sodium 70 MG Oral Tablet (Fosamax)Indicat ions:High risk for fracture due to osteoporosis by DEXA scan Take 1 Tablet by mouth once a week. with 8 oz. water 30 minutes before first meal of the day. Remain upright for 30 min after taking tablet 15 Tablet 3 3 04/25/19 24 Discontinued(Re fill) Vjpuguv-Khfxuc-Y cell Pertussis 5-2.5-18.5 LF-MCG/0.5 Suspension Prefilled Syringe (Boostrix)Indica tions:Need for diphtheria-tetan us-pertussis (Tdap) vaccine Inject 0.5 mL into a large muscle once for 1 dose. As directed 0.5 mL 0 3 05/02/19 24 Discontinued Omeprazole 40 MG Oral Capsule Delayed Release (PriLOSEC) Take 1 Capsule by mouth at bedtime. 90 Capsule 3 3 04/25/19 24 Discontinued documented as of this encounter (statuses as of 05/02/2023) Active Problems Problem Noted Date Diagnosed Date [...] as of this encounter (statuses as of 05/02/2023) Resolved Problems Problem Noted Date Diagnosed Date Resolved Date Prediabetes 06/06/2021 01/04/2023 Overview: Per Prediabetes protocol Overweight (BMI 25.0-29.9) 07/08/2020 0 01/15/2023 Severe persistent asthma without complication 08/26/19 20 12/12/2021 Mild intermittent asthma with exacerbation 06/26/2019 08/26/2019 GERD (gastroesophageal reflux disease) 12/25/2017 12/12/2018 documented as of this encounter (statuses as of 05/02/2023) Immunizations Name Administration Dates Next Due COVID-19 mRNA, LNP-s, No Pre serve, 2-Dose Series ([employer]) 06/05/2020,05/15/2020 Covid-19, Mrna, Lnp-s, Pf, B ivalent, 30 Mcg, IM, 12 yrs and above ([employer]) 02/10/2022 Pneumococcal Conjugate Vacc, 13 Valent (Prevnar) [...] Sign Reading Time Taken Comments Blood Pressure 132/60 05/02/2023 10:21 AM EST Pulse 100 05/02/2023 10:21 AM EST Temperature 36.1 C (96.9 F) 05/02/2023 9:51 AM ES T Respiratory Rate 18 05/02/2023 10:21 AM EST Oxygen Saturation 96% 05/02/2023 10:21 AM EST Inhaled Oxygen Concentration - - Weight 64.9 kg (143 lb) 05/02/2023 7:22 AM EST Height 156.2 cm (5' 1.5") 05/02/2023 7:22 AM EST Body Mass Index 26.59 05/02/2023 7:22 AM EST documented in this encounter Discharge Instructions * Discharge Instr - AVS* Jayne Way MD - 05/02/2023 8:00 AM EST Instructions for: Breast procedures INCISION CARE: If present, remove any outer dressing(s) in 24 hours. The incision(s) may be sealed with a skin adhesive (Dermabond) or covered with white adhesive tapes known as steri-strips. Either way there is noneed to cover up the incisions again with gauze. BRA: Wear a support bra (morning and evening) for at least 1 week and then as you normally do thereafter. ACTIVITY: Avoid any strenuous activity, repetitive motion, lifting over 10 lbs with the affected side for 2 weeks. No high impact exercise for 2 weeks. SHOWER: You may shower 24 hours after surgery and get the incision(s) or steri-strips wet with soapy water and gently pat them dry. If the steri-strips come off in the shower, do not become concerned. If they are still in place 10 days after surgery, you may remove them. PAIN MEDICATION: Options for pain medications include products that include ibuprofen or Tylenol. Apply an ice pack to the incision (20 min on, 20 min off) for the first 24-48 hours to help with pain and swelling. If you have been given a script for a narcotic pain medication, this can cause nausea / vomiting and / or constipation. Please take it with food. It is OK to use over the counter laxatives if needed. BIOPSY RESULTS: It normally takes 4-5 working days for the pathology lab to process the biopsy. If you do not hear from the office within 1 week, please call [phone] or send an email in [employer] to see if the results are back. documented in this encounter Progress Notes * Anisa Johnston RN - 05/02/2023 9:36 AM EST [id number] * Jayne Way MD - 05/02/2023 9:28 AM EST [facility] [address] [place] [id number] OUTPATIENT SURGERY DISCHARGE SUMMARY NOTE Name: Nakul Palm Location: OR [facility]/OR Date: 05/02/2023 Time: 9:28 AM Surgery Date: 05/02/2023 Procedure: Procedure(s): EXCISION OF CYST OR TUMOR BREAST EXCISION OF BREAST LESION RADIOLOGICAL MARKER Right Right Surgeon: Surgeon(s): Jayne Way MD Discharge Diagnosis: right breast atypical ductal hyperplasia After examination of this patient, I have determined she is ready for discharge to home when the patient meets criteria. Discharge instructions were given to the patient. * Mitch Gonzalez RN - 05/01/2023 1:[address] today as per patient * Mitch Gonzalez RN - 05/01/2023 1:33 PM EST Check in patient have SIL place today 05/01/23 documented in this encounter H&P Notes * Jayne Way MD - 05/02/2023 7:53 AM EST [facility] NEW BREAST CLINIC NOTE Chief Complaint Patient presents with NEW PATIENT Abnormal Mammogram, US and biopsy on right breast. REASON FOR CONSULTATION: Right Breast ADH bordering on low grade DCIS HPI: Nakul Palm is a 67 year old female who is here for her right excisional breast biopsy. Since her last visit, MRI showed no suspicious areas. Sil trade embalmer was placed a the site (clip had migrated). No other changes to her medical history. Originally she was referred by Kenzie Pacheco MD for evaluation and discussion of newly diagnosed ADH bordering on low grade DCIS This was found on screening mammogram which revealed calcifications in the right breast. She underwent diagnostic imaging which confirmed the calcifications and then proceeded to have a stereotactic core biopsy. All of the calcifications were removed and there was a 2.8 cm inferior migration of the clip. Pathology showed atypical lobular hyperplasia, atypical ductalhyperplasia bordering on low-grade DCIS. Estrogen receptor staining was positive. A. Breast, Right, Rt breast calcs, core biopsy: Foci of atypical ductal hyperplasia, bordering low grade DCIS, associated microcalcifications. B. Breast, Right, Right breast non-calcs, core biopsy: Atypical lobular hyperplasia. at 0811 Order Comments Right breast lateral indeterminate calcifications Gross Description A. Breast, Right. Received in formalin with a container labeled with "Rajlaxshmi Phoha", "[id number]", "1955" and "right breast calcification". Received are multiple cores of red-yellow fibroadipose tissue ranging from 0.2 cm to 3.0 cm in length, each approximately 0.2 cm in diameter. The specimen is entirely submitted, wrapped in lens paper in cassettes A1-A4. Collection/ischemic time: time 130, date 02/01/2023, time in formalin: time 130, date 02/01/2023. Gross By: DAYANA B. Breast, Right. Received in formalin with a container labeled with "Rajlaxshmi Phoha", "[id number]", "1955" and "right breast non calcification". Received are multiple cores of red-yellow fibroadipose tissue ranging from 0.2 cm to 3.0 cm in length, each approximately 0.2 cm in diameter. The specimen is entirely submitted, wrapped in lens paper in cassettes B1-B2. Collection/ischemic time: time 130, date 02/01/2023, time in formalin: time 1305, date 02/01/2023. Gross By: DAYANA Microscopic Description A. E-cad is positive; features of ductal origin. BNC5 demonstrates monoclonal proliferation of ductal cells with surrounding myoepithelial cells. ER is positive. Features of ADH. B. E-cad is negative; features of lobular origin. ER is positive. NC-5 highlights myoepithelial cells. BREAST ROS: No new breast lumps or masses, No severe breast pain, No nipple discharge, and No recent change in shape/color About 7-8 yrs ago, had two prior breast biopsies - same breast. Both were benign. No family history of breast or ovarian cancer. GYNECOLOGIC HISTORY: LMP: No LMP recorded. Patient is postmenopausal. Menarche at age: 12 Menopause at age: [age] Number of children: 2 Patient's age at first live : 39 Did you breast feed any of your children: Yes Ever take oral contraceptives? No Ever take estrogen? No RADIOLOGIC INTERPRETATION: 05/01/23: EXAM MAMMOGRAM NEEDLE LOCALIZATION RIGHT- 05/01/2023 12:38 pm HISTORY right breast sil trade embalmer please (at site of biopsy, marker has migrated) COMPARISON 01/15/2023, 12/22/2022, 02/01/2023 TECHNIQUE See below FINDINGS A timeout procedure was performed by Bhargavi Burr MD in the presence of Moira Ulloa. The patient's identification was verified. Informed consent with agreement of procedure, site, and position was obtained. The procedure matches the verbalized consent. All necessary equipment was available prior to procedure. The side of the intended procedure was marked on the skin. Patient has an allergy to morphine she has no known blood dyscrasias and is not taking anticoagulantmedication. As discussed previously, the marker had migrated 2.8 cm inferior to the removed calcifications. Thesurgeon had discussed with the patient that the site of the removed calcifications and not the marker will be targeted. This was discussed again with the patient today. Using aseptic technique, local anesthesia with 1% buffered lidocaine , and mammographic guidance, placement of Saviscout reflector was performed from a superior to inferior approach targeting the site of removed calcifications 2.8 cm superior to the marker. The delivery system was removed. Subsequent radiograph demonstrates the SAVISCOUT reflector is deployed in the location of the previously targeted calcifications 2.8 cm superior to the marker on the true lateral view. The reflector was tested audibly with the GENERAL MACHINE OPERATOR check handpiece wand placed on the patient's skin over the target and confirmed to be audibly detectable. She tolerated the procedure well with no complication. Postproceduralverbal and written copy instructions for her to take home were reviewed with the patient. IMPRESSION IMPRESSION Mammographic SAVISCOUT reflector placement in the right breast upper outer quadrant was performed. 04/11/23: Result MRI BREAST BILATERAL W WO CONTRAST History Atypical ductal hyperplasia of breast Preoperative examination The patient has no documented relevant family history. Technique MR (magnetic resonance) imaging was performed utilizing multiple sequences. Following the intravenous administration of gadolinium, dynamic scanning was performed. Kinetic analysis was evaluated withIPLogic software. Films Compared Mammogram dated 01/21/2023 and 01/15/2023. Findings Left. The left breast has heterogeneous fibroglandular tissue. There is mild background parenchymal enhancement. No suspicious mass or nonmass enhancement is seen. There is no axillary or internal mammary lymphadenopathy. Right. The right breast has heterogeneous fibroglandular tissue. There is mild background parenchymal enhancement. Susceptibility artifact related to biopsy clips are noted in the upper outer right breast. No associated suspicious enhancement is identified. No suspicious mass or nonmass enhancement is seen. There is no axillary or internal mammary lymphadenopathy. Impression No suspicious enhancement is identified at the site of biopsy proven atypical ductal hyperplasia. No MRI evidence of malignancy in either breast. BI-RADS Category: 2 - Benign. Recommendation Continued surgical follow-up regarding biopsy-proven atypical ductal hyperplasia//low grade DCIS. Resume annual screening mammography is recommended for both breasts. Screening breast MRI in 1 year is recommended for both breasts. 02/01/23: ADDENDUM: A. Breast, Right, Rt breast calcs, core biopsy: Foci of atypical ductal hyperplasia, bordering low grade DCIS, associated microcalcifications. B. Breast, Right, Right breast non-calcs, core biopsy: Atypical lobular hyperplasia. Imaging and pathology are concordant. Surgical consultation is recommended at this time. Results were relayed to the patient by the ordering clinician on February 09, 2023. Signed by Spring Alonso MD on 02/14/2023 11:18 Narrative & Impression EXAM MAMMOGRAM BREAST NEEDLE BIOPSY CORE RIGHT - 02/01/2023 1:23 pm HISTORY Abnormal mammogram COMPARISON Prior examination January 15, 2023 TECHNIQUE ALLERGIES: Patient states no allergy to lidocaine or tape. ANTICOAGULATION: None ANESTHESIA: 1% lidocaine/1% lidocaine with epinephrine PAYMENT PROCESSOR: Dr. Alonso was present for and performed the entire procedure. PROCEDURE: Following a discussion of the risks and benefits of the procedure as well as a discussion of alternatives to this procedure, the patient was given the opportunity to ask questions. Once the patient's questions were answered to her satisfaction, informed consent was signed by the patient.A timeout, with verification of patient name, birthdate and site of procedure was performed by Dr. Alonso in the presence of Alexandra Resendiz and it was confirmed that procedure matches verbalized consent. All necessary equipment was present prior to the beginning of the procedure. The side of theintended procedure was marked on the skin. Using aseptic technique, local anesthesia superficially with 1% buffered lidocaine and more deeply with 1% buffered lidocaine mixed with epinephrine, and stereotactic guidance, 9-gauge vacuum assisted core biopsy was performed on the right breast. Targeted calcifications were verified in the specimen on the specimen radiograph. Marker was placed and all devices were removed from the breast. Pressure was held at the biopsy site until hemostasis was obtained and the wound was then dressed. Follow-up unilateral right mammogram demonstrated no residual calcifications and approximally 2.8 cm inferior biopsy marker migration. The patient was given standard written discharge and post procedural instructions, which were also verbally explained to her and she expressed understanding. The patient was discharged from the department in stable condition. FINDINGS Post procedural unilateral mammogram demonstrates no residual calcifications and approximally 2.8 cm inferior biopsy marker migration. The patient tolerated the procedure well and there were no complications. Pathology is pending IMPRESSION IMPRESSION Stereotactic core biopsy right breast calcifications performed. 01/15/23: Result MAMMOGRAM DIAGNOSTIC CHRISTIE RIGHT History Abnormal mammogram The patient has no documented relevant family history. Films Compared 12/22/2022 MAMMOGRAM SCREENING CHRISTIE BILATERAL, 02/18/2021 MAMMOGRAM SCREENING CHRISTIE BILATERAL, 02/04/2020 MAMMOGRAM SCREENING CHRISTIE BILATERAL, 12/11/2018 MAMMOGRAM SCREENING CHRISTIE BILATERAL, and 12/03/2015 RADIOLOGY EXAM - MAMMOGRAPHY (IMAGES ONLY, NO REPORT) Findings The right breast is heterogeneously dense, which may obscure small masses. A group of coarsening and coalescing microcalcifications suggestive benign etiology is noted in the upper-outer quadrant, middle depth. A group of faint, punctate, pleomorphic microcalcifications is noted posterior to it in the upper outer quadrant, middle depth, seen best on spot compression magnification CC view. This probably correlates with a group of microcalcifications in the upper middle depth on spot compression true lateral magnification view. Stereotactic guided core biopsy would be helpful to obtain histology diagnosis. Impression Group of faint punctate pleomorphic microcalcifications in the lateral middle depth seen best on CCmagnification view probably correlate with a group of microcalcifications seen in the upper middle depth on spot compression true lateral magnification view. Stereotactic guided core biopsy is advised. BI-RADS Category: 4 - Suspicious. Recommendation Stereotactic breast biopsy is recommended for the right breast. The above findings and recommendations were discussed with and understood by the patient. 12/22/22: Result MAMMOGRAM SCREENING CHRISTIE BILATERAL History Encounter for screening mammogram for breast cancer The patient has no documented relevant family history. Films Compared 2020 to 2014 Findings Left The left breast is heterogeneously dense, which may obscure small masses. There is no evidence of suspicious masses, calcifications, or other abnormal findings in the left breast. Right The right breast is heterogeneously dense, which may obscure small masses. There is no evidence of suspicious masses. There is a group of coarse heterogeneous and fine pleomorphic calcifications in the upper outer quadrant that have increased in number. Impression Bilateral RIGHT: group of coarse heterogeneous and fine pleomorphic calcifications in the upper outer quadrant that have increased in number. LEFT: negative BI-RADS Category: 0 - Incomplete: Needs Additional Imaging Evaluation. Recommendation Screening mammogram in 1 year is recommended for the left breast. Callback diagnostic mammogram is recommended for the right breast. I personally viewed and interpreted the mammographic films and concur with the above. FAMILY HISTORY: Family history of breast cancer: None Family history of ovarian cancer: None Family History Problem Relation Age of Onset Asthma Mother at age 69 Stroke Mother Diabetes Mother Hypertension Mother Other (bph) Father Arthritis Sister Arthritis Sister Arthritis Brother Arthritis Brother Arthritis Brother No Known Problems Son No Known Problems Son Breast Cancer No significant family history PAST MEDICAL HISTORY: Past Medical History: Diagnosis Date Chronic frontal [...] 06/02/2021 Sicca syndrome (HCC) 10/13/2020 Thalassemia 12/26/2017 Has a cerebral aneurysm that is being monitored - stable. In 2021, had episode of PSVT. High cholesterol. PAST SURGICAL HISTORY: Past Surgical History: Procedure Laterality Date BREAST BIOPSY Right 2012 Benign BREAST BIOPSY Right 2017 Benign BREAST BIOPSY Right 02/01/2023 PATH pending EGD, FLEXIBLE, DIAGNOSTIC N/A 10/15/2018 ESOPHAGOGASTRODUODENOSCOPY (EGD), FLEXIBLE, TRANSORAL, DIAGNOSTIC performed by Denton Solano DO at ENDOSCOPY [facility] EXPLORE PARATHYROID GLANDS N/A 09/22/2020 PARATHYROIDECTOMY performed by Anatoliy Mcduffie MD at [place] [facility] [place] PARTIAL REMOVAL OF THYROID LOBE N/A 09/22/2020 PARTIAL THYROID LOBECTOMY performed by Anatoliy Mcduffie MD at [place] [facility] SINUS SURGERY PROCEDURE NEC 2005 ? endoscopic sinus surgery; ? associated nasal surgery CURRENT OUTPATIENT PRESCRIPTIONS: Current Facility-Administered Medications Medication Dose Route Frequency Provider Last Rate Last Admin [COMPLETED] Acetaminophen (Tylenol) tab 975 mg 975 mg Oral Pre-Op Jayne Way MD 975 mg at 05/02/23 0712 ceFAZolin in dextrose (Ancef) ivpb 2 g 2 g IV Piggyback Pre-Op Jayne Way MD isolyte-S pH 7.4 infusion Intravenous Continuous Jayne Way MD 100 mL/hr at 05/02/23 0737 1,000 mL at 05/02/23 0737 ALLERGIES: Allergies as of 03/27/2023 - Reviewed 03/27/2023 Allergen Reaction Noted Morphine 12/25/2017 SOCIAL HISTORY: Social History Tobacco Use Smoking status: Never Smokeless tobacco: Never Tobacco comments: no passive smoke exposures Substance Use Topics Alcohol use: No Vaping/E-Cigarette Use Vaping/E-Cigarette Use Never User Vaping/E-Cigarette Substances Vaping/E-Cigarette Devices ROS: GEN: no weight loss, fever, fatigue HEENT: no changes in vision or hearing, no sinus problems, no sore throat, no hoarseness RESPIRATORY: no cough, wheezing, SOB or change in breathing CARDIOVASCULAR: no exertional chest pain, dyspnea, palpitations GI: no melena, hemetemesis, no vomiting or diarrhea : no dysuria, hematuria, frequency MUSCULOSKELETAL: upcoming right knee surgery in a few months; wearing brace currently. PSYCHIATRIC: no significant anxiety or depression, unchanged sleep pattern HEME: no bleeding tendency, no clotting tendency NEURO: no significant headache, no seizures , no tremors SKIN: no new rashes, no itching Has allergies PHYSICAL EXAMINATION: BP 152/78 | Pulse 72 | Temp 36.7 C (98.1 F) (Tympanic) | Resp 18 | Ht 1.562 m (5' 1.5") | Wt 64.9 kg (143 lb) | SpO2 99% | BMI 26.59 kg/m | BSA 1.68 m Constitutional: alert, healthy Head: normocephalic, atraumatic Eyes: conjunctiva non-injected, sclera white Ears: pinna normal shape and color Neck: supple, no adenopathy Lungs: clear to auscultation, breath sounds are equal and symmetric Heart: regular rate & rhythm and no murmur, gallops or rubs Abdomen: soft, non-tender Back: normal curvature Extremities: no edema, right knee brace in place Neuro: alert, gait normal, motor normal BREAST EXAMINATION: not repeated today Right Breast: Right Breast: Masses noted: No Post XRT edema: No Post XRT erythema: No Other palpable abnormality: No Skin: Skin retraction: No Peau d'orange: No Telangectasia: No Scar(s) present: No Other changes: No Right Nipple: Nipple inversion: No Pagets: No Nipple discharge: No Right Lymph Nodes: Arm edema: No Palpable axillary adenopathy: No Palpable supraclavicular adenopathy: No Previous axillary incision: No Left Breast: Left Breast: Masses noted: No Post XRT edema: No Post XRT erythema: No Other palpable abnormality: No Skin: Skin retraction: No Peau d'orange: No Telangectasia: No Scar(s) present: No Other changes: No Left Nipple: Nipple inversion: No Pagets: No Nipple discharge: No Left Lymph Nodes: Arm edema: No Palpable axillary adenopathy: No Palpable supraclavicular adenopathy: No Previous axillary incision: No IMPRESSION: 67-year-old woman with new diagnosis of 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 This was found on a biopsy done for faint calcifications. She has heterogeneously dense breast tissue. She has no family history of breast cancer. We discussed that ADH is the start of changes along the progression towards cancer and serves as a marker of being at an increased risk of developing breast cancer in the future. Her lifetime risk ofbreast cancer was calculated and it shows a range of 17.41-33.53% with kd portillo v8 showing highest risk. Because of this elevated lifetime risk, I would recommend MRI screening of her breast which would be best done before surgery so as to avoid any confounding effects of the surgical procedure. We discussed that MRI is a very sensitive way of ruling out invasive cancer but is not as sensitive for calcifications, atypia, or in situ breast cancer. We also reviewed that there can be frequent false positives with MRI screening which can lead to further need for imaging or biopsy. MRI done and was negative. Because of the elevated 5 yr risk, we discussed chemoprevention with tamoxifen or raloxifene. She was given the ACS pamphlet on chemoprevention to review today. We discussed that I would recommend raloxifene as the initial therapy in her case, given that she is postmenopausal and intact uterus. Risks of these drugs to include cataract formation, clotting, uterine cancer, hot flashes, muscle aches, depression were all discussed. She is going to think about this and will let me know how she wantsto proceed. Lastly, we reviewed the need for excisional biopsy when atypia is identified on core biopsy. This is done to rule out any associated malignancy and to remove the area of atypia. Use of sil trade embalmer to localize the site discussed with pt. We reviewed that the biopsy marker would likely be left in place as it had migrated inferiorly about 2.8 cm. She is comfortable with leaving the marker and just removing the biopsy site. Risks of the procedure including bleeding, infection, cosmetic deformity of the breast, and the need for additional procedures should malignancy be found were reviewed. All questions answered. Consent signed today. Will schedule under LMA anesthesia. Check CBC, BMP, EKG preop. PLAN: Sil trade embalmer placement at biopsy site right breast - done(marker migrated inferiorly and will be leftin). Right breast excisional biopsy with preoperative localization. Consider chemoprevention with tamoxifen or raloxifene. This will be discussed further at her postoperative visit. Jayne Way M.D. 05/02/2023 8:00 AM documented in this encounter Nursing Notes * Gertrudis Peck RN - 05/02/2023 10:30 AM EST Patient is alert, pain free, dressing to R breast dry and intact bra and ice in place and tolerating po fluids prior to discharge. Patient has been visited by Dr. Jayne Way. Patient has received and demonstrates understanding ofdischarge instructions. Patient is transported via w/c to private auto accompanied by family and staff. * Anisa Johnston RN - 05/02/2023 9:51 AM EST Pt rests with eyes closed, easily arousable, no c/o pain or nausea. Pt with dressing dry and intactto right breast. * Gertrudis Peck RN - 05/02/2023 9:51 AM EST Pt received PACU II awake, denies pain, dressing to R breast dry and intact, surgical bra and ice in place. * Anisa Johnston RN - 05/02/2023 9:08 AM EST Pt received from OR, report received from COMMERCIAL LOAN MANAGER and VS reviewed. Pt arousable to name, no c/o pain or nausea. Dressing dry and intact to right breast, ice applied. * Jessica Adler RN - 05/02/2023 7:01 AM EST Surgical consent verified with patient. Patient agrees with listed procedure and verified signature. documented in this encounter OR Notes * OR Surgeon - Jayne Way MD - 05/02/2023 9:00 AM EST [facility] [address] [address] OPERATIVE REPORT Name: Nakul Palm Date: 05/02/2023 Time: 9:00 AM Location: OR [facility] Service: General Surgery Date of Operation: 05/02/2023 Pre-op Diagnosis: right breast atypical ductal hyperplasia upper outer quadrant Post-op Diagnosis: same Operation: right breast excisional biopsy with preoperative localization Surgeon: Jayne Way MD Assistants: None Anesthesia: General LMA anesthesia Drains: none Estimated Blood Loss: 5 ml. IV Fluids: 800 ml. Urine Output: N/A Specimens/Disposition: right breast atypical ductal hyperplasia upper outer quadrant Apparent Intraoperative Complications: NONE Patient Condition: stable Disposition: In and Out recovery unit Attestation: I performed the procedure Indications: 68 yr old woman with imaging identified calcifications found to have atypical ductal hyperplasia on core biopsy. Consented for excisional biopsy with preoperative localization of the site (clip had migrated 2.8 cm inferiorly). Procedure: The patient underwent placement of SCD's and received 2 gm of ancef preoperatively. After the induction of LMA anesthesia, her right breast was prepped and draped under sterile conditions.The pt had undergone preoperative localization by radiology using a sil trade embalmer marker. The sil trade embalmer localizing probe was used to identify the location of the lesion. The area was anesthetized with 1% lidocaine with epinephrine mixed with 0.5% marcaine (total of 40 cc was used). An incision was made and subdermal planes developed. Using the sil trade embalmer, the tissue around the marker was carefully excised with a margin of normal tissue. The specimen was marked using the margin marker ink kit. This was sent for radiography and noted to contain the area of interest/ sil trade embalmer. In addition, two prior markers and calcifications were also in the specimen. The wound was irrigated and noted to be hemostatic. The wound was closed with a subdermal 3-0 vicryl suture layer and a running subcuticular 4-0 monocryl suture. Steristrips and a sterile dressing were applied. She was awakened from anesthesia and taken to recovery in stable condition. documented in this encounter Plan of Treatment Upcoming Encounters Date Type Department Care Team (Late st Contact Info) Description 05/04/2023 9:00 AM EST Scheduled Telephone General Surgery, [facility] [address] [facility] [place] [address] [facility] [address] [facility] [place] [address] 05/17/2023 10:00 AM EST Office Visit [facility] [place] [address] MD [address] [place] [address] 06/15/2023 1:00 PM EST Office Visit Cardiology, [facility] [address] [facility] [place] [address] Alex [facility] Cardiology [facility] [address] [facility] [place] [address] 07/17/2023 2:20 PM EDT Office Visit General Internal Medicine [facility] [address] [facility] [place] [address] Kenzie Pacheco MD [address] [facility] [place] [address] Pending Results Name Type Priority Associated Diagnoses Date /Time SURGICAL PATHOLOGY Pathology Routine Atypical hyperplasia of breast 05/02/2023 8:46 AM EST Scheduled Orders Name Type Priority Associated Diagnoses Orde r Schedule SURGICAL PATHOLOGY Pathology Routine Atypical hyperplasia of breast Release Upon Ordering for 1 Occurrences starting 05/02/2023 Scheduled Procedures Name Priority Associated Diagnoses Date/Ti me EXCISION OF CYST OR TUMOR BREAST Atypical hyperplasia of breast 05/02/2023 7:00 AM EST EXCISION OF BREAST LESION RADIOLOGICAL MARKER Atypical hyperplasia of breast 05/02/2023 7:00 AM EST Health Maintenance Due Date Last Done Comments DTaP,Tdap,and Td Vaccines (1 - Tdap) 1973 Colonoscopy 1999 Fecal Occult Blood Test 1999 Sigmoidoscopy 1999 COVID-19 Vaccine ( - season) 2022 02/10/2022, 06/05/2020, 05/15/2020 Influenza Vaccine (FLU shot) (#1) 2022 03/22/2022, 02/26/2021, 12/18/2019, Additional history exists Albumin/Creatinine Ratio 07/08/2023 07/07/2022, 05/24 CKD PHOS USE SMARTSET 61571 07/08/202306/21, 12/10/2020, 12/26/2019 DXA Scan 07/20/2023 07/19/2021, 07/02/2019 GFR 10/24/2023 2023, 1208/2022, 07/07/2022, Additional history exists Depression Screening 01/16/2024 01/15/2023 Mammogram 01/16/2024 01/15/2023, 0904/2022, 02/18/2021, Additional history exists CKD HGB USE SMARTSET 69678 04/25/202404/25, 03/27/2023, 07/07/2022, Additional history exists Cologuard 08/11/2025 08/11/2022, 07/22, 08/04/2022 Colorectal Cancer Screening 08/11/2025 Diabetes Screening 2026 2023, 1 05/28/2022, 12/22/2022, Additional history exists Zoster Vaccines Completed 01/16/2020, 06/26/2019 Pneumococcal Vaccine: 65+ Years Completed 10/13/2020, 12/18/2019 VITAMIN D LEVEL ONCE IN A LIFETIME-USE SMARTSET# [id number] Completed 12/01/2021, 08/03/2021, 06/02/2021, Additional history exists GARDASIL-HPV IMMUNIZATION SERIES Aged Out No longer eligible based on patient's age to complete this topic MENINGOCOCCAL (MENACTRA/MENVEO) Aged Out No longer eligible based on patient's age to complete this topic documented as of this encounter Medical Devices Not on filedocumented as of this encounter Visit Diagnoses Diagnosis Need for jajzclfcsm-ozssyok-yjwcbfapx (Tdap) vaccine Need for prophylactic vaccination with combined gfjpxbfhbx-wcsxtkz-bdapwkzoy (DTP) vaccine Atypical hyperplasia of breast Hypertrophy of breast documented in this encounter Administered Medications Inactive Administered Medications - up to 3 most recent administrations Medication Order MAR Action Action Date Dose Rate Site Acetaminophen (Tylenol) tab 650 mg 650 mg, Oral, PRN Pain, Mild, Starting on Sun05/02/23 at 1001, Until Sun05/02/23 at 1432, For 1 dose, Maximum of 4 grams (4000 mg) per day., Post-op Acetaminophen (Tylenol) tab 975 mg 975 mg, Oral, PREOP, First dose on Sun05/02/23 at 0745, Last dose on Sun05/02/23 at 0745, For 1 dose, Maximum 4 g acetaminophen/day. Avoid in patients with severe hepatic impairment or severe active liver disease. Administer 60 minutes prior to OR., Pre-Op Given 05/02/2023 7:12 AM EST 975 mg ceFAZolin in dextrose (Ancef) ivpb 2 g 2 g, IV Piggyback, PREOP, 1 dose, First dose on Sun05/02/23 at 0745, Administer 60 minutes prior to skin incision, Pre-Op New Bag 05/02/2023 8:03 AM EST 2 g 100 mL/hr dexAMETHasone Sodium Phosphate (Decadron) 4 MG/ML inj 4 mg 4 mg, IV Push, PRN Nausea, Starting on Sun05/02/23 at 0910, Until Sun05/02/23 at 1432, For 1 dose, PROTECT FROM LIGHT, PACU fentaNYL (PF) inj 25 mcg 25 mcg, IV Push, PRN Pain, Severe, Starting on Sun05/02/23 at 0910, Until Sun05/02/23 at 1432, For 6 doses, When given IV Push its recommended that the dose be given over 3 to 5 minutes., PACU isolyte-S pH 7.4 infusion Intravenous, Plasma-LYTE 148, isolyte-S, and isolyte-S pH 7.4 are considered equivalent - including for MAR barcode scanning., CONTINUOUS, Starting on Sun05/02/23 at 0745, Until Sun05/02/23 at 1432, Pre-Op Continue from Pre-Op 05/02/2023 8:09 AM EST 100 mL/hr New Bag 05/02/2023 7:37 AM EST 1,000 mL 100 mL/hr ondansetron (Zofran) inj 4 mg 4 mg, IV Push, PRN Nausea, Starting on Sun05/02/23 at 0910, Until Sun05/02/23 at 1432, For 1 dose, PACU oxygen GAS Inhalation, OXYGEN, First dose on Sun05/02/23 at 0945, Until Discontinued, Device/Managed by: Low Flow Device, Goal SPO2 (%): 91-95, Starting Device: Simple Mask, Initial Flow Rate (LPM): 6, Lowest Support: Nasal Cannula: Flow 0-6 LPM. Titrate up/down by 1 LPM., Titration Interval: Q2 minutes and as needed., Notify Provider: For sudden DECREASE in resting SPO2 to less than 85% and when escalating delivery device., PACU I - Oxygen for saturation below 95% as indicated per anesthesia. PACU I - Discontinue oxygen when patient is responsive and oxygen saturation is maintained above 94% on room air or same as preanesthetic level. documented in this encounter Active and Recently Administered Medications Times are shown in EST. Scheduled Medication Order 04/30/2023 05/01/2023 05/02/2023 Acetaminophen (Tylenol) tab 975 mg (COMPLETED) 975 mg, Oral, PREOP, First dose on Sun05/02/23 at 0745, Last dose on Sun05/02/23 at 0745, For 1 dose, Maximum 4 g acetaminophen/day. Avoid in patients with severe hepatic impairment or severe active liver disease. Administer 60 minutes prior to OR., Pre-Op 0712 (Given - Provid er: Jessica Adler RN) ceFAZolin in dextrose (Ancef) ivpb 2 g (COMPLETED) 2 g, IV Piggyback, PREOP, 1 dose, First dose on Sun05/02/23 at 0745, Administer 60 minutes prior to skin incision, Pre-Op 0803 (New Bag - Prov ider: Jessica Adler RN) oxygen GAS Inhalation, OXYGEN, First dose on Sun05/02/23 at 0945, Until Discontinued, Device/Managed by: Low Flow Device, Goal SPO2 (%): 91-95, Starting Device: Simple Mask, Initial Flow Rate (LPM): 6, Lowest Support: Nasal Cannula: Flow 0-6 LPM. Titrate up/down by 1 LPM., Titration Interval: Q2 minutes and as needed., Notify Provider: For sudden DECREASE in resting SPO2 to less than 85% and when escalating delivery device., PACU I - Oxygen for saturation below 95% as indicated per anesthesia. PACU I - Discontinue oxygen when patient is responsive and oxygen saturation is maintained above 94% on room air or same as preanesthetic level. 0945 (Due) Continuous Medication Order 04/30/2023 05/01/2023 05/02/2023 isolyte-S pH 7.4 infusion Intravenous, Plasma-LYTE 148, isolyte-S, and isolyte-S pH 7.4 are considered equivalent - including for MAR barcode scanning., CONTINUOUS, Starting on Sun05/02/23 at 0745, Until Sun05/02/23 at 1432, Pre-Op 0737 (New Bag - Prov ider: Jessica Adler RN)0809 (Continue from Pre-Op - Provider: Tito Sheridan CRNA)0854 (Anes Intra-Op Fluid - Provider: Tito Sheridan CRNA) PRN Medication Order 04/30/2023 05/01/2023 05/02/2023 Acetaminophen (Tylenol) tab 650 mg 650 mg, Oral, PRN Pain, Mild, Starting on Sun05/02/23 at 1001, Until Sun05/02/23 at 1432, For 1 dose, Maximum of 4 grams (4000 mg) per day., Post-op bupivacaine 20 mL, lidocaine-epinephrine 1 %-1:[id number] 20 mL inj (CANCELED) ONCE PRN INTRA PROCEDURE, Starting on Sun05/02/23 at 0828, Until Sun05/02/23 at 0900, Intra-Op 0826 (Given - Provid er: Jayne Way MD) dexAMETHasone Sodium Phosphate (Decadron) 4 MG/ML inj 4 mg 4 mg, IV Push, PRN Nausea, Starting on Sun05/02/23 at 0910, Until Sun05/02/23 at 1432, For 1 dose, PROTECT FROM LIGHT, PACU fentaNYL (PF) inj 25 mcg 25 mcg, IV Push, PRN Pain, Severe, Starting on Sun05/02/23 at 0910, Until Sun05/02/23 at 1432, For 6 doses, When given IV Push its recommended that the dose be given over 3 to 5 minutes., PACU ondansetron (Zofran) inj 4 mg 4 mg, IV Push, PRN Nausea, Starting on Sun05/02/23 at 0910, Until Sun05/02/23 at 1432, For 1 dose, PACU documented in this encounter Advance Directives Latest Code Status on File Code Status Date Activated Date Inactivated Comments Full Code 05/02/2023 7:00 AM 05/02/2023 2:32 PM This order reflects the patients wishes and were consensually agreed upon. Question Answer Comments Discussion of Advance Directives occurred with: Patient Care Teams Lens Assistant Relationship Specialty Start Date End Date Kenzie Pacheco MD [address] [place] [address] PCP - General Internal Medicine 06/26/19 documented as of this encounter
--- OUTSIDE RECORDS SUMMARY | 2023-06-08 14:14 | External Medical Summary | Summary of Care ---
Author Name Unknown Organization [facility] Address [address] [place] [address] Phone [phone] Care Team Providers Care Air Reduction Equipment Operator Name Role Phone Kenzie Pacheco MD Primary Care Provider [phone] Encounter Details Date Type Department Care Team (Late st Contact Info) Description 04/26/2023 Orders Only General Internal Medicine [facility] [address] [facility] [place] [address] Kenzie Pacheco MD [address] [place] [address] Allergies Active Allergy Reactions Criticality Noted Date [...] mRNA, LNP-s, No Pre serve, 2-Dose Series (Edtrips) 06/05/2020,05/15/2020 Covid-19, Mrna, Lnp-s, Pf, B ivalent, [...] Description 05/01/2023 11:30 AM EST Imaging Radiology [address], [address] [place] [address] 05/01/2023 12:00 PM EST Imaging Radiology [facility] [address] [place] [address] 05/02/2023 8:00 AM EST Hospital Encounter OR [facility], Operating Room [facility] [address] [place] [address] MD [address] [place] [address] 05/02/2023 8:00 AM EST - 05/02/2023 9:13 AM EST Surgery OR [facility], Operating Room [facility] [address] [place] [phone] MD [address] [place] [address] EXCISION OF CYST OR TUMOR BREAST 05/02/2023 3:20 PM EST Imaging Radiology [facility] [address] [place] [address] 05/04/2023 9:00 AM EST Scheduled Telephone General Surgery, [facility] [address] [place] [address] Alex Nurse Gen Surg [facility] [address] [place] [address] 05/17/2023 10:00 AM EST Office Visit General Surgery, [facility] [address] [place] [address] MD [address] [place] [address] 06/15/2023 1:00 PM EST Office Visit Cardiology, [facility] [address] [place] [address] Alex [facility] [address] [place] [address] 07/17/2023 2:20 PM EDT Office Visit General Internal Medicine [facility] [address] [facility] [address] Kenzie Pacheco MD [address] [facility] [place] [address] Scheduled Procedures Name Priority Associated Diagnoses Date/Ti [...] 07/08/2023 07/07/2022, 05/24 CKD PHOS USE SMARTSET 44096 07/08/202306/21, 12/10/2020, 12/26/2019 DXA Scan 07/20/2023 07/19/2021, 07/02/2019 GFR 09/26/2023 2023, 1208/2022, 07/07/2022, Additional history exists Depression Screening 01/16/2024 01/15/2023 Mammogram 01/16/2024 01/15/2023, 04/2022, 02/18/2021, Additional history exists CKD HGB USE SMARTSET 02281 03/27/202404/25, 03/27/2023, 07/07/2022, Additional history exists Cologuard 08/11/2025 08/11/2022, 07/22, 08/04/2022 Colorectal Cancer Screening 08/11/2025 Diabetes Screening 03/27/2026 2023, 1 05/28/2022, 12/22/2022, Additional history exists Zoster Vaccines Completed 01/16/2020, 06/26/2019 Pneumococcal Vaccine: 65+ Years Completed 10/13/2020, 12/18/2019 VITAMIN D LEVEL ONCE IN A LIFETIME-USE SMARTSET# [id number] Completed 12/01/2021, 08/03/2021, 06/02/2021, Additional history exists GARDASIL-HPV IMMUNIZATION SERIES Aged Out No longer eligible based on patient's age to complete this topic MENINGOCOCCAL (MENACTRA/MENVEO) Aged Out No longer eligible based on patient's age to complete this topic documented as of this encounter Medical Devices Not on filedocumented as of this encounter Procedures Procedure Name Priority Date/Time Associated Diagnosis Comments XR CHEST 2 VIEWS Routine 2023 documented in this encounter Results * XR CHEST 2 VIEWS (2023) Anatomical Region Laterality Modality Chest Other 2023 Tyrone Wilson DO RADIOLOGY (RAD GE NERAL) documented in this encounter Care Teams Air Reduction Equipment Operator Relationship Specialty Start Date End Date Kenzie Pacheco MD [address] [place] [address] PCP - General Internal Medicine 06/26/19 documented as of this encounter
[2023-06-08] MEDS: oxyCODONE HCL IR 5 MG TAB (IMMEDIATE RELEASE) PO PRN (16:42)
[2023-06-08] MEDS: DOCUSATE SODIUM 100 MG CAP PO SCH (21:47)
[2023-06-08] MEDS: ASPIRIN 81 MG ECTAB PO SCH (21:47)
[2023-06-08] MEDS: SENNA 8.6 MG TAB PO SCH (21:48)
[2023-06-08] MEDS: MONTELUKAST SODIUM 10 MG TABLET PO SCH (21:48)
[2023-06-08] MEDS: METOCLOPRAMIDE HCL INJ 5 MG/ML 2 ML VIAL IV PRN (21:55)
[2023-06-09] MEDS: ONDANSETRON INJ 2 MG/ML 2 ML VIAL IV PRN (05:23)
--- NOTE | 2023-06-09 06:43 | Orthopedic Progress Note ---
Date of Service June 09, 2023 Assessment & Plan (1) Status post right knee replacement: Overall she is doing very well. She is not having much pain in the right knee. She will be seen by physical therapy today for ambulation and range of motion exercises. She is on aspirin for DVT prophylaxis. She can be discharged home later today. She will follow-up with orthopedics in 2 weeks. Subjective Familia was seen and examined at bedside this morning. Overall she is doing fairly well. She is not having too much pain in the right knee. She has been up and ambulating to the bathroom. She has no complaints.. Review of Systems All systems reviewed & are unremarkable except as noted in HPI & below. Physical Exam On physical examination of the right knee, the dressing is clean and dry. Her leg is out full extension. She has active dorsiflexion plantarflexion of her right ankle.. Results & Data Results & Data Laboratory Results . Diagnostic Findings Postoperative x-rays of the right knee show the prosthesis to be in anatomic alignment without any evidence of fracture complication, or loosening.. PG Care Time/CCT Total # of Minutes Spent Total Time Spent with Patient: Total time spent is greater than 50% in coordination of care (as documented) at patient's floor/unit and/or counseling patient: Coding Level of Care Code 12331 Post Operative Follow-Up Diagnoses Status post right knee replacement Z96.651
--- NOTE | 2023-06-09 06:44 | Discharge Summary ---
Date of Service June 09, 2023 Admission HPI (Per Admitting) Familia is a pleasant 68-year-old female who initially had a work-related injury in the past. She was dealing with a chronic right knee pain. I did a right knee arthroscopy on her in November 2022. I was able to remove a meniscus tear, but she also had some grade 4 chondral damage of the distal medial femoral condyle. Unfortunately, she has not done well postoperatively. She is still limping with the right knee. All of her pain is located medially. She is wearing a knee brace. After failing conservative treatment, she has elected to proceed with a right partial knee replacement surgery. Admission Exam (Per Admitting) On physical examination of the right knee, she has tenderness palpation of the distal medial femoral condyle and over the medial joint line.. Principal Diagnosis Same as "Discharge Diagnosis" noted below under Discharge Instructions. Discharge Exam On physical examination of the right knee, the dressing is clean and dry. Her leg is out full extension. She has active dorsiflexion plantarflexion of her right ankle.. Discharge Data Procedures Performed Operation Date: 06/08/23 09:00 Actual Procedures p Right Total Knee Arthroplasty(Right) - Tyrone Wilson DO Ordered Studies 06/08/23 05:00 US - OR guided needle placemen Routine Hospital Course (1) Status post right knee replacement: On June 08, 2023 Familia arrived at [facility] and underwent a right knee replacement without complication. She had a spinal anesthetic. Postoperatively she was started on aspirin for DVT prophylaxis and transferred to the general orthopedic floors. Her hospital course was uneventful. On postop day #1, her vital signs were stable and her pain was well-controlled. She was able to participate well with physical therapy doing ambulation and range of motion exercises. She was then discharged home. She will follow-up with orthopedics in 2 weeks. PG Care Time/CCT Total # of Minutes Spent Total Time Spent with Patient: Total time spent is greater than 50% in coordination of care (as documented) at patient's floor/unit and/or counseling patient: Discharge Plan Discharge Items Patient Disposition: Home - Self-Care Reason For Visit: Degenerative Joint Disease Right Knee Discharge Diagnosis: Right knee replacement Activity: As commented below Non-emergency contact: Surgeon Call non-emergency contact if: your wound has increased redness and your wound h as increased drainage Follow-up/Referrals: Tracy Henley MD [Primary Care Provider] - Diet: Regular Addtl Attending Provider Instructions: Activity and Therapy Recommendations: * If you are using [facility] then therapy will be provided at your home until they feel you have accomplished all of your goals. * If you are using [facility] then Physical Therapy will be provided until they feel you are ready to start Outpatient Physical Therapy. * If you are not using home therapy then Outpatient Physical Therapy should start about 3-5 days from your day of surgery. Therapy will last about 6-10 weeks * It is important not to put a pillow under your knee when you are relaxing or sleeping. It is just as important to make sure you are getting your knee perfectly straight as it is to regain your knee bend. * You were shown a series of exercises in the hospital. Do these exercises three times each day including the exercises you were shown in physical therapy. * Get up and walk several times each day. For the first four weeks, try not to stand or walk for more than one hour at a time. If you do stand or walk for more than one hour, you will not hurt anything, but your leg will likely swell. * As you feel comfortable, you may change from the walker or crutches to a cane and then to independent walking. Medications: * Narcotic You will likely be sent home from the hospital with a prescription for the narcotic pain medication that worked best throughout your stay. * Cefadroxil -take the antibiotic twice a day for 10 days to help prevent infection. * Aspirin Most patients will be required to take Aspirin 81mg twice a day for 6 weeks after surgery. This is obtained [id number] and a prescription is not necessary. * Other medications may be prescribed for specific circumstances. If you have any questions, please call the office at . * Resume previous home medications unless otherwise instructed TEDs/Elastic Stockings: The white elastic stockings help limit swelling and prevent blood clots from forming in your legs.~ The more you wear them, the more they work. Wear them for six weeks. Dressing Care: The dressing can be changed after physical therapy on postop day #1. Daily dry dressing changes for a few days, especially if the incision is still draining some. If the incision is not draining then you may leave the mojgan open to air. If there is a little bit of drainage or if the mojgan are getting stuck on your clothing then cover the incision with a dry dressing. The mojgan will be removed at your 2 week follow-up appointment. Showering: You may shower 5 days from the day of surgery as long as the incision is no longer draining. You may shower with the mojgan exposed. Let soapy water run over the mojgan and pat them dry. Do not scrub or soak the incision. Things To Watch For: * Drainage from the incision site that occurs more than one week after your surgery. * Increased redness at the incision site. * Fever above 102 degrees Fahrenheit. * Unusual chest pain or shortness of breath. * Call [facility] at with any of the above problems Follow-Up Visit: Follow-up with Dr. Wilson's PA (Tyrone Davidson) 2-3 weeks after your day of surgery. He will remove your mojgan and answer any questions. If you have any additional questions or concerns, Dr Wilson is usually in the office at the same time and will be available An appointment was probably scheduled when you signed-up for surgery in the office. If you have any questions call Office Instructions: More detailed instructions as well as Frequently Asked Questions were provided in a folder by our office when you signed-up for surgery. Please review these instructions when you get home. If you have any further questions or concerns, please feel free to call the office at [phone] Pending Studies at Discharge: No Stand-Alone Forms: My [facility] [address], Smoking Cessation Medications and DC Order Prescriptions: New oxycodone 5 mg Tablet 5 mg PO Q4H PRN (Reason: pain) Qty: 30 0RF cefadroxil 500 mg capsule 500 mg PO BID 10 Days Qty: 20 0RF aspirin 81 mg Tablet,Delayed Release (Dr/Ec) 81 mg PO BID 42 Days Qty: 0 0RF Continued acetaminophen [Tylenol Extra Strength] 500 mg tablet 1,000 mg PO ONCE PRN (Reason: Pain) Xolair 150 mg recon soln 225 mg subcut Q14D diclofenac sodium 1 % gel 1 g topical QID PRN (Reason: pain) Qty: 100 2RF Rx Instructions: Apply to affected areas four times daily as directed esomeprazole magnesium [Nexium] 40 mg capsule,delayed release(DR/EC) 40 mg PO QAM montelukast [Singulair] 10 mg tablet 10 mg PO QPM albuterol sulfate 90 mcg/actuation HFA aerosol inhaler 2 puff inhalation Q6H PRN (Reason: Wheezing) Zyrtec 10 mg capsule 10 mg PO QAM PRN (Reason: Allergy Symptoms) Repatha SureClick 140 mg/mL Pen Injector 140 mg SUBCUT Q14D Discharge Orders: Discharge Order (Routine); Ordered 06/09/23 Ordered By: Tyrone Wilson Admission Data Admit Date/Time: 06/08/23 10:48 Attending Provider: Tyrone Wilson Admit Provider: Tyrone Wilson Primary Care Provider: Tracy Henley Other Providers: Count Includes [facility],Home Health
[2023-06-09] MEDS: MULTIVITAMIN TAB PO SCH (08:24)
[2023-06-09] MEDS: dexAMETHasone 4 MG TAB PO SCH (08:25)
== END 2023-06-09 13:29 | disposition home health service (06) ==
LOC: 3E 07:16 → ASU 07:16

== ENCOUNTER 2025-03-31 09:30 | Inpatient (IN) ==
--- NOTE | 2025-03-31 09:43 | Emergency Department Note ---
Impression & Plan Unstable angina pectoris, CAD (coronary artery disease) ED Provider Note NAME: ROSENDO CHAUDHRY AGE: 69 SEX: F : 1955 ARRIVES VIA: Walk-In INFORMANT: Patient, ED PROVIDER(S): Aj Marie MD CHIEF COMPLAINT: Arm pain MEDICAL DECISION MAKING: Patient presents due to concern for arm pain. Patient was seen by Dr. Sanders yesterday and advised to present to the emergency department as she had worsening symptoms. IV was established and blood work is obtained. Initial EKG does not show evidence of obvious STEMI. The patient without current chest pain. The patient's blood work shows a normal white counts hemoglobin of 10.3. The patient's platelet count is unremarkable. The patient's kidney function is unremarkable. Initial troponin of 20.2. Repeat obtained 18.1. The patient was given a full dose aspirin. Discussed with on-call cardiology Dr. Bradford and after discussion with the patient no stress test at this time and plan for catheterization tomorrow. Patient was ordered heparin. I did speak the on-call hospitalist service resident physician Dr. Duarte and the patient was admitted by Dr. Velarde. Critical Care: I have personally spent 35 minutes of critical care time in direct management of this patient. This includes bedside care, interpretation of diagnostic studies, and testing, discussion with consultants, patient, and family members, and other require inpatient management activities. This 35 minutes is in excess of all separately billable procedures. Discussion w/ other healthcare providers: Dr. Duarte and Dr. Velarde inpatient medicine service Prior /Outside records reviewed: I reviewed part of a discharge summary from September 26, [address] Doyle. Patient presented status post STEMI and stent thrombosis status post cath and PCI with an elevated troponin. ECHO showed LVEF of 35 to 40%. Differential diagnosis: Cardiac ischemia, aortic dissection, pulmonary embolism, pneumothorax, pneumonia, pericarditis, myocarditis, GERD, cholecystitis, pancreatitis, musculoskeletal, as well as other pathologies were considered. Diagnostics, as interpreted by me: ECG: Normal sinus rhythm, rate of 89, normal MN wide QRS left lower branch block pattern. ST depressions in the high lateral leads, no obvious sgarbossa criteria. Cardiac monitoring: An order was placed for continuous cardiac monitoring. The monitor shows a rate of 85 with sinus rhythm. Patient was placed on pulse oximetry Medical decision rules: None Imaging studies: I informally interpreted the patient's chest x-ray does not show evidence of obvious pneumonia with formal report to follow. HPI: Patient presents due to concern for chest/arm pain. Patient reports that she had "piercing pain" in her left arm that began on Sunday. Patient reports that this morning as well as yesterday she did have chest pressure in the left chest which did go to her arm and jaw. Patient has had some nausea and some sweatiness. She denies any exertional component. Patient reports that the episode that occurred this morning was while at rest laying in bed. She denies any cough or fever. She does have chronic leg pain but this is unchanged. No leg swelling. Patient reports that this does feel somewhat similar to when she had a prior [place]. Review of the records show the patient did have an stent and thrombosis STEMI back in September. The patient reports with compliance with medications although did not take them this morning as the patient does have a scheduled stress test to be completed on April 02 but was told that if she had worsening symptoms if she presented to the emergency department this may be something that could be completed during the visit or even as an inpatient. Patient denies any active chest pain at the bedside. She denies any abdominal pain. No cough or fever. PAST MEDICAL HISTORY: See Below PAST SURGICAL HISTORY: See Below SOCIAL HISTORY: See Below HOME MEDICATIONS: See Below ALLERGIES: See Below VITALS: See Below PHYSICAL EXAMINATION: GENERAL: NAD, non-toxic. EYE EXAM: Normal conjunctiva. PERRL, no anisocoria and EOM's grossly intact w/o pain. OROPHARYNX: Moist mucus membranes, grossly normal dentition. NECK: Trachea midline, no stridor. LUNGS: Clear to auscultation. Normal chest wall mechanics. HEART: NSR, no MRG. ABDOMEN: Abdomen soft, non-tender, no masses, no rebound or guarding. BACK: No CVA TTP. SKIN: No rashes and no bruising. UPPER EXTREMITIES: Upper extremities are grossly normal. LOWER EXTREMITIES: Grossly normal, no edema. NEURO EXAM: Awake and alert, follows commands, no obvious facial asymmetry, normal speech, moves all 4 extremities. Past Med/Surg History Problem List (Updated 03/31/25 @ 18:03 by Aj Marie MD) HFrEF (heart failure with reduced ejection fraction) Unstable angina pectoris (Acute) Acute heart failure with reduced ejection fraction and diastolic dysfunction Presence of drug coated stent in left circumflex coronary artery CAD (coronary artery disease) (Acute) Status post right knee replacement (~05/2023) Encounter for pre-operative examination Osteoarthritis of right knee Lumbar facet joint syndrome Asthma well controlled, rescue inhaler reduced since starting Xolair-average a few times monthly-last use several weeks ago, triggers-pollens, humidity, pollution Right knee pain Piriformis syndrome of right side Thalassemia Osteoporosis Hyperlipidemia with target LDL less than 100 Chronic rhinitis GERD (gastroesophageal reflux disease) controlled, stable per pt Medical History Coronary stent thrombosis Chest pain ST elevation (STEMI) myocardial infarction Cerebral aneurysm 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 the anterior interhemispheric fissure on 12/2022 head MRA-followed by [facility] PCP to chart review Hyperparathyroidism PSVT (paroxysmal supraventricular tachycardia) CKD (chronic kidney disease) stage 3, GFR 30-59 ml/min Sleep apnea demonstrated on 2020 sleep study Surgical History History of heart artery stent S/P medial meniscectomy of right knee History of section x1 History of esophagogastroduodenoscopy (EGD) History of colonoscopy History of lumbar surgery L4-L5 fusion H/O sinus surgery H/O breast biopsy unsure which side, negative Family History Mother Asthma Diabetes Stroke Hypertension Sister Arthritis Brother Arthritis Social History Smoking Status: Never smoker Second Hand Exposure: No; Do You Dip or Chew Tobacco: No; Hx Alcohol Use: No Hx Substance Use: No Preferred Language: Lao Communication Ability: Effective Visual Impairment: No Limitations Hearing Ability: Normal [employer]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 Beliefs That Will Affect Care: Cultural Cultural Beliefs: no beef marital status: Single Current Living Situation: Family Current Living Situation Comment: 2 children current occupational status: retired current occupation: Retired Other Information That Helps Us Care for You: No Feels Safe at Home: Yes Safety Concerns: Feels Safe At This Time Assistive Devices: Glasses Allergies Allergies Allergy/AdvReac Type Severity Reaction Status Date / Time atorvastatin Allergy Intermediate Hives Verified 03/31/25 13:13 morphine AdvReac Intermediate tachycardia Verified 03/31/25 13:13 c Home Meds Home Medications Medication Instructions Recorded Confirmed albuterol sulfate 90 mcg/actuation 2 puff inhalation Q6H PRN Wheezing 05/11/20 03/31/25 aerosol inhaler esomeprazole magnesium 40 mg 40 mg PO HS 05/11/20 03/31/25 capsule,delayed release (Nexium) montelukast 10 mg tablet 10 mg PO QPM 05/11/20 03/31/25 (Singulair) acetaminophen 500 mg tablet 1,000 mg PO ONCE PRN Pain 08/29/22 03/31/25 (Tylenol Extra Strength) omalizumab 150 mg subcutaneous 225 mg subcut Q14D 08/29/22 03/31/25 solution (Xolair) evolocumab 140 mg/mL subcutaneous 140 mg subcut Q14D 11/22/22 03/31/25 pen injector (Carlos Canela) budesonide-formoterol HFA 160 2 puff inhalation BID 03/31/25 03/31/25 mcg-4.5 mcg/actuation aerosol inhaler (Symbicort) gabapentin 300 mg capsule 300 mg PO TID 03/31/25 03/31/25 levalbuterol tartrate 45 2 puff inhalation Q6H PRN 03/31/25 03/31/25 mcg/actuation aerosol inhaler sob/wheezing levothyroxine 25 mcg tablet 25 mcg PO QAM 03/31/25 03/31/25 (Synthroid) megestrol 40 mg tablet 40 mg PO DAILY PRN Other 03/31/25 03/31/25 metoprolol succinate 25 mg 37.5 mg PO QPM 03/31/25 03/31/25 tablet,extended release 24 hr prasugrel HCl 10 mg tablet 10 mg PO DAILY 03/31/25 03/31/25 tezepelumab-ekko 210 mg/1.91 mL 210 mg subcut UD 03/31/25 03/31/25 (110 mg/mL) subcutaneous pen injector (Tezspire) Previous Rx's Medication Instructions Recorded diclofenac sodium 1 % topical gel 1 g topical QID PRN pain #100 grams 11/22/22 aspirin 81 mg tablet,delayed 81 mg PO QAM 30 days #30 tabs 09/26/24 release rosuvastatin 20 mg tablet 20 mg PO HS 30 days #30 tabs 09/26/24 sacubitril 24 mg-valsartan 26 mg 1 tab PO BID 30 days #60 tabs 09/26/24 tablet (Entresto) Results & Data (ED) Vital Signs Vital Signs - 24 hr 03/31/25 09:36 03/31/25 09:54 03/31/25 09:54 Temperature 36.5 C Temperature Source Oral Pulse Rate 91 H 89 Pulse Rate [Apical] 89 Respiratory Rate 18 22 Blood Pressure 135/84 Blood Pressure [Left Arm] 122/80 Blood Pressure Mean 101 Blood Pressure Mean [Left Arm] 94 Blood Pressure Position Sitting Blood Pressure Position [Left Arm] Sitting Pulse Oximetry 100 99 99 Oxygen Delivery Method Room Air Room Air Room Air Sepsis Recent Fever Within 48 Hours No Sepsis New/Unexplained Change in Mental Status No Sepsis Action Taken by Nursing No Action Required 03/31/25 10:15 03/31/25 11:31 03/31/25 13:00 Temperature Temperature Source Pulse Rate 83 Pulse Rate [Apical] 75 93 H Respiratory Rate 18 18 Blood Pressure Blood Pressure [Left Arm] 122/80 140/56 L Blood Pressure Mean Blood Pressure Mean [Left Arm] 94 84 Blood Pressure Position Blood Pressure Position [Left Arm] Pulse Oximetry 97 98 Oxygen Delivery Method Sepsis Recent Fever Within 48 Hours Sepsis New/Unexplained Change in Mental Status Sepsis Action Taken by Long Term Medications Current Medication List: was personally reviewed by me Laboratory Data Attestation: I reviewed the patient's lab results. 03/31/25 16:07 03/31/25 10:03 Lab Results 03/31/25 03/31/25 Range/Units 10:03 11:15 WBC 6.47 (4.8-10.8) K/ul RBC 5.67 H (4.20-5.40) M/uL Hgb 10.3 L (12.0-16.0) g/dL Hct 33.7 L (37.0-47.0) % MCV 59.4 L (80.0-100.0) fL MCH 18.2 L (25.0-34.0) pg MCHC 30.6 L (32.0-36.0) g/dL RDW Std Deviation 33.9 L (36.4-46.3) fL RDW Coeff of Sandro 17.6 H (11.5-14.5) % Plt Count 368 (130-400) K/uL MPV 10.6 (9.4-12.4) fL Immature Gran % (Auto) 0.3 % Neut % (Auto) 66.0 % Lymph % (Auto) 23.8 % Mchenry % (Auto) 8.7 % Eos % (Auto) 0.6 % Baso % (Auto) 0.6 % Neut # (Auto) 4.27 (1.40-6.50) K/uL Lymph # (Auto) 1.54 (1.20-3.40) K/uL Mchenry # (Auto) 0.56 (0.11-0.59) K/uL Eos # (Auto) 0.04 (0.00-0.50) K/uL Baso # (Auto) 0.04 (0.00-0.20) K/uL Immature Gran # (Auto) 0.02 (0.01-0.20) K/uL Polychromasia 1+ Hypochromasia Present Poikilocytosis Present Anisocytosis Present Microcytosis Present Ovalocytes 2+ Sodium 137 (136-145) mmol/L Potassium 4.7 (3.5-5.1) mmol/L Chloride 105 (98-107) mmol/L Carbon Dioxide 26 (21-32) mmol/L Anion Gap 6 (3-11) BUN 16 (6-23) mg/dl Creatinine 0.96 (0.6-1.2) mg/dl Est Cr Clr Drug Dosing Not Reportable eGFR 63.65 BUN/Creatinine Ratio 16.7 (10-20) Glucose 110 H (70-99(Fasting)) mg/dl Calcium 9.2 (8.6-10.3) mg/dl Total Bilirubin 0.7 (0.2-1.0) mg/dl AST 25 (13-39) U/L ALT 11 (7-52) U/L Alkaline Phosphatase 81 (34-104) U/L Troponin I High Sens 20.2 H 18.1 H (0-14) pg/ml Total Protein 7.4 (6.0-8.3) gm/dl Albumin 4.0 (3.4-5.0) gm/dl Globulin 3.4 (2.5-4.0) gm/dl Albumin/Globulin Ratio 1.2 (0.9-2) Lipase 81 (11-82) U/L Administered Medications Gabapentin (Gabapentin 300 Mg Cap) 300 mg PO TID JEWEL Stop: 04/30/25 15:45 Last Admin: 03/31/25 17:13 Dose: Not Given Documented By: Heparin Sodium/Dextrose (Heparin 47512 Unit/500 Ml D5w) 25,000 units in 500 mls @ 15 mls/hr IV .Q24H JEWEL; Protocol Stop: 04/30/25 12:59 Last Admin: 03/31/25 14:25 Dose: 750 units/hr, 15 mls/hr Documented By: adal Co-signed By: SIMON Discontinued Medications Aspirin (Aspirin Chew 324 Mg) 324 mg PO NOW STA Stop: 03/31/25 11:29 Last Admin: 03/31/25 11:40 Dose: 324 mg Documented By: adal Heparin Sodium/Dextrose (Heparin Iv Adult Wt-Based Low-Dose *No* Initial Bolus Protocol) 1 each IV ONE STA; Protocol Stop: 03/31/25 12:39 Last Admin: 03/31/25 16:38 Dose: Not Given Documented By: Levothyroxine Sodium (Levothyroxine Sodium 25 Mcg Tablet) 25 mcg PO ONE ONE Stop: 03/31/25 13:20 Last Admin: 03/31/25 13:41 Dose: Not Given Documented By: adal Prasugrel (Prasugrel Tab 10 Mg Tab) 10 mg PO ONE ONE Stop: 03/31/25 13:18 Last Admin: 03/31/25 13:41 Dose: 10 mg Documented By: adal Rosuvastatin Calcium (Rosuvastatin Calcium 20 Mg Tab) 20 mg PO ONE ONE Stop: 03/31/25 13:20 Last Admin: 03/31/25 13:41 Dose: 20 mg Documented By: adal Sacubitril/Valsartan (Valsartan/Sacubitril 26/24mg Tab) 1 tab PO ONE ONE Stop: 03/31/25 13:17 Last Admin: 03/31/25 13:41 Dose: 1 tab Documented By: adal Imaging Data Radiologist's Impression: Chest X-Ray 03/31/25 09:42 XR chest 1V portable HISTORY: 69 years-old Female Chest pain, nonspecific COMPARISON: 09/23/2024 TECHNIQUE: AP view of the chest FINDINGS: Cardiomediastinal and hilar silhouettes are within normal limits. No pneumothorax, pleural effusion, airspace consolidation or pulmonary edema. Small hiatal hernia. Coronary arterial stent is noted. The bones appear grossly intact. IMPRESSION: 1. No acute process of the chest. 2. Small hiatal hernia. ACT 112: Negative or not required by law. The above report was generated using voice recognition software. It may contain grammatical, syntax or spelling errors. Electronically signed by: Willian Pryor M.D. 03/31/2025 10:06 AM Discharge Plan Visit Data Chief Complaint: Cardiac Assessment Stated Complaint: CHEST PAIN, PRESSURE, L ARM PAIN ED Provider: Aj Marie Discharge Problem: Unstable angina pectoris, CAD (coronary artery disease) Patient Disposition: Admitted As Inpatient Condition: Good Discharge Instructions Interventions: ED Discharge Assessment Last Done: 03/31/25 15:38 Discharge Problem: CAD (coronary artery disease) Qualifiers: Coronary Disease-Associated Artery/Lesion type: [place] artery [place] vs. transplanted heart: [place] heart Associated angina: with unstable angina Q ualified Code(s): I25.110 - Atherosclerotic heart disease of [place] coronary artery with unstable angina pectoris
--- NOTE | 2025-03-31 10:08 | XRay Report ---
XR chest 1V portable HISTORY: 69 years-old Female Chest pain, nonspecific COMPARISON: 09/23/2024 TECHNIQUE: AP view of the chest FINDINGS: Cardiomediastinal and hilar silhouettes are within normal limits. No pneumothorax, pleural effusion, airspace consolidation or pulmonary edema. Small hiatal hernia. Coronary arterial stent is noted. The bones appear grossly intact. IMPRESSION: 1. No acute process of the chest. 2. Small hiatal hernia. ACT 112: Negative or not required by law. The above report was generated using voice recognition software. It may contain grammatical, syntax o r spelling errors. Electronically signed by: Willian Pryor M.D. 03/31/2025 10:06 AM
[2025-03-31 10:45] LABS: Alanine Aminotransferase 11 U/L (7-52); Albumin Globulin Ratio 1.2 (0.9-2); Albumin Level 4.0 gm/dl (3.4-5.0); Alkaline Phosphatase 81 U/L (34-104); Anion Gap 6 (3-11); Bilirubin,Total 0.7 mg/dl (0.2-1.0); Blood Urea Nitrogen 16 mg/dl (6-23); Calcium 9.2 mg/dl (8.6-10.3); Carbon Dioxide 26 mmol/L (21-32); Chloride 105 mmol/L (98-107); Globulin 3.4 gm/dl (2.5-4.0); Glucose 110 mg/dl (70-99(Fasting)); Lipase 81 U/L (11-82); Potassium 4.7 mmol/L (3.5-5.1); Sodium 137 mmol/L (136-145); Total Protein 7.4 gm/dl (6.0-8.3)
[2025-03-31 10:52] LABS: Hematocrit (blood only) 33.7 % (37.0-47.0); Hemoglobin 10.3 g/dL (12.0-16.0); Mean Corpuscular Hemoglobin 18.2 pg (25.0-34.0); Mean Corpuscular Volume 59.4 fL (80.0-100.0); Platelet Count 368 K/uL (130-400); RDW Standard Deviation 33.9 fL (36.4-46.3); Red Blood Count 5.67 M/uL (4.20-5.40); White Blood Count 6.47 K/ul (4.8-10.8)
[2025-03-31 11:02] LABS: Anisocytosis Present; Hypochromasia Present; Immature Granulocytes # (auto) 0.02 K/uL (0.01-0.20); Immature Granulocytes % (auto) 0.3 %; Microcytosis Present; Ovalocytes 2+; Poikilocytosis Present; Polychromasia 1+
[2025-03-31] MEDS: ASPIRIN CHEW 324 MG PO STA (11:40)
--- NOTE | 2025-03-31 12:34 | Cardiology Consultation ---
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 -add heparin infusion -update echo -NPO after midnight for planned cath tomorrow History of Present Illness History of Present Illness Nakul Palm is a 69 year old female seen in cardiology consultation per the request of Dr Marie for the evaluation of chest pressure and left arm pain. The patient is well-known to the undersigned. I had recently seen her as an outpatient last week as an urgent visit on 03/26/25 for similar complaints. Patient has a complex history of coronary disease including A circumflex territory STEMI that took place due to early stent thrombosis in September, for which she underwent emergent PCI with placement of an overlapping drug-eluting stent x 1 to the proximal circumflex coronary artery. She has been adherent to her medications in the meantime including aspirin and prasugrel. Due to ongoing chest symptoms, she had been prescribed a topical nitroglycerin patch in September but she did not tolerate this due to low blood pressure. She reports that over the last month she has been having recurrent episodes of a chest pressure 2-3 times per week that may occur at rest or when she wakes up from sleep but also with aerobic exertion. Cardiac Problems: 1.Coronary artery disease a.Cardiac CT (05/25/2020) with elevated Agatston calcium score of 283. b.CATH (09/18/24) with PCI and OBDULIA x1 to Lcx with residual disease in mid LAD with 40% stenosis and mild, non-obstructive disease in RCA c.Recurrent angina and found to have inferolateral STEMI with emergent CATH at [facility] (09/22/24) revealing acute stent thrombosis with 100% occlusion in midportion and received PCI and overlapping OBDULIA x1 to proximal circumflex d.[id number] genotype test negative with no genetic predisposition to altered metabolism of clopidogrel 2.Ischemic cardiomyopathy a.LVEF 40-44% (ECHO 08/20/24) b.LVEF 35-40% (ECHO 09/23/24) c.LVEF 40-44% (ECHO 10/03/24) 3.HLD a.Statin intolerance 4.Familial hypercholesterolemia 5.Hiatal hernia Allergies Allergy/AdvReac Type Severity Reaction Status Date / Time atorvastatin Allergy Intermediate Hives Verified 03/31/25 13:13 morphine AdvReac Intermediate tachycardia Verified 03/31/25 13:13 c Home Medications Medication Instructions Recorded Confirmed Type albuterol sulfate 90 mcg/actuation 2 puff inhalation Q6H PRN Wheezing 05/11/20 03/31/25 History aerosol inhaler esomeprazole magnesium 40 mg 40 mg PO HS 05/11/20 03/31/25 History capsule,delayed release (Nexium) montelukast 10 mg tablet 10 mg PO QPM 05/11/20 03/31/25 History (Singulair) acetaminophen 500 mg tablet 1,000 mg PO ONCE PRN Pain 08/29/22 03/31/25 History (Tylenol Extra Strength) omalizumab 150 mg subcutaneous 225 mg subcut Q14D 08/29/22 03/31/25 History solution (Xolair) diclofenac sodium 1 % topical gel 1 g topical QID PRN pain #100 grams 11/22/22 03/31/25 Rx evolocumab 140 mg/mL subcutaneous 140 mg subcut Q14D 11/22/22 03/31/25 History pen injector (Carlos Canela) aspirin 81 mg tablet,delayed 81 mg PO QAM 30 days #30 tabs 09/26/24 03/31/25 Rx release rosuvastatin 20 mg tablet 20 mg PO HS 30 days #30 tabs 09/26/24 03/31/25 Rx sacubitril 24 mg-valsartan 26 mg 1 tab PO BID 30 days #60 tabs 09/26/24 03/31/25 Rx tablet (Entresto) budesonide-formoterol HFA 160 2 puff inhalation BID 03/31/25 03/31/25 History mcg-4.5 mcg/actuation aerosol inhaler (Symbicort) gabapentin 300 mg capsule 300 mg PO TID 03/31/25 03/31/25 History levalbuterol tartrate 45 2 puff inhalation Q6H PRN 03/31/25 03/31/25 History mcg/actuation aerosol inhaler sob/wheezing levothyroxine 25 mcg tablet 25 mcg PO QAM 03/31/25 03/31/25 History (Synthroid) megestrol 40 mg tablet 40 mg PO DAILY PRN Other 03/31/25 03/31/25 History metoprolol succinate 25 mg 37.5 mg PO QPM 03/31/25 03/31/25 History tablet,extended release 24 hr prasugrel HCl 10 mg tablet 10 mg PO DAILY 03/31/25 03/31/25 History tezepelumab-ekko 210 mg/1.91 mL 210 mg subcut UD 03/31/25 03/31/25 History (110 mg/mL) subcutaneous pen injector (Tezspire) Patient History Medical History Coronary stent thrombosis Chest pain ST elevation (STEMI) myocardial infarction Cerebral aneurysm 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 the anterior interhemispheric fissure on 12/2022 head MRA-followed by [facility] PCP to chart review Hyperparathyroidism PSVT (paroxysmal supraventricular tachycardia) CKD (chronic kidney disease) stage 3, GFR 30-59 ml/min Sleep apnea demonstrated on 2020 sleep study Surgical History History of heart artery stent S/P medial meniscectomy of right knee History of section x1 History of esophagogastroduodenoscopy (EGD) History of colonoscopy History of lumbar surgery L4-L5 fusion H/O sinus surgery H/O breast biopsy unsure which side, negative Family History Mother Asthma Diabetes Stroke Hypertension Sister Arthritis Brother Arthritis Social History Smoking Status: Never smoker Second Hand Exposure: No; Do You Dip or Chew Tobacco: No; Hx Alcohol Use: No Hx Substance Use: No Preferred Language: Irish Communication Ability: Effective Visual Impairment: No Limitations Hearing Ability: Normal Assistance Coordinator Required: No Beliefs That Will Affect Care: None marital status: Single Current Living Situation: Family Current Living Situation Comment: 2 children current occupational status: retired current occupation: Retired Feels Safe at Home: Yes Assistive Devices: Walker Review of Systems Review of Systems: All systems reviewed & are unremarkable except as noted in HPI & below Physical Exam Physical Exam: General: no acute distress and stated age Eyes: conjunctiva are pink and non-injected, sclera clear Neck: normal jugular venous pulse, no hepatojugular reflux Chest: normal shape and normal respiratory effort Lungs: clear to auscultation and percussion Cardiac Exam: - regular heart sounds, no murmurs, rubs, or gallops, no jugular venous distention Abdomen: abdomen soft, non-tender, no abnormal masses and no hepatosplenomegaly Extremities: no edema and no cyanosis Neuro:awake, conversant, follows commands, no focal motor deficits Psych: appropriate affect and insight. Results & Data Vital Signs (Past 12 Hours) Vital Signs Temp Pulse Pulse Resp BP BP Pulse Ox 03/31/25 11:31 75 18 122/80 97 03/31/25 10:15 83 03/31/25 09:54 89 22 122/80 99 03/31/25 09:54 89 99 03/31/25 09:36 36.5 C 91 H 18 135/84 100 O2 Del Method 03/31/25 11:31 03/31/25 10:15 03/31/25 09:54 Room Air 03/31/25 09:54 Room Air 03/31/25 09:36 Room Air Laboratory Results Cardiac Enzymes 03/31/25 03/31/25 Range/Units 10:03 11:15 AST 25 (13-39) U/L Troponin I High Sens 20.2 H 18.1 H (0-14) pg/ml CBC 03/31/25 Range/Units 10:03 WBC 6.47 (4.8-10.8) K/ul RBC 5.67 H (4.20-5.40) M/uL Hgb 10.3 L (12.0-16.0) g/dL Hct 33.7 L (37.0-47.0) % Plt Count 368 (130-400) K/uL Neut # (Auto) 4.27 (1.40-6.50) K/uL Lymph # (Auto) 1.54 (1.20-3.40) K/uL [place] # (Auto) 0.56 (0.11-0.59) K/uL Eos # (Auto) 0.04 (0.00-0.50) K/uL Baso # (Auto) 0.04 (0.00-0.20) K/uL Comprehensive Metabolic Panel 03/31/25 Range/Units 10:03 Sodium 137 (136-145) mmol/L Potassium 4.7 (3.5-5.1) mmol/L Chloride 105 (98-107) mmol/L Carbon Dioxide 26 (21-32) mmol/L BUN 16 (6-23) mg/dl Creatinine 0.96 (0.6-1.2) mg/dl Glucose 110 H (70-99(Fasting)) mg/dl Calcium 9.2 (8.6-10.3) mg/dl AST 25 (13-39) U/L ALT 11 (7-52) U/L Alkaline Phosphatase 81 (34-104) U/L Total Protein 7.4 (6.0-8.3) gm/dl Albumin 4.0 (3.4-5.0) gm/dl Intake and Output 03/30/25 03/31/25 03/31/25 22:59 06:59 14:59 Other: Weight 70.7 kg Weight Measurement Method Built in [facility] Patient Weight 04/01/25 06:59 Weight 70.7 kg Diagnostic Findings EKG performed today and interpret independently reveals sinus rhythm with left bundle branch block, unchanged compared to prior outpatient tracing dated back to 03/26/2025 Cardiac MRI 12/11/24 Summary: Cardiac MRI Findings of moderately reduced left ventricular systolic function . The left ventricular ejection fraction is 40 % . There is transmural myocardial infarction with wall motion abnormality of the basal to mid inferolateral wall. Inferolateral wall is non viable .The remaining left ventricular wall segments are viable. Findings of ischemic cardiomyopathy. The inferolateral segments are scarred (>75%) at the base and mid levels. The inferolateral segment is scarred (25-50%) at the apical level. The inferior segments are scarred (25-50%) at the base and mid levels. Inferolateral wall is non viable . Limited TTE 10/03/24 The qualitative LV ejection fraction is 40-44% (mildly reduced). The septal motion is abnormal consistent with left bundle branch block. Moderate hypokinesis of the mid lateral and mid posterior wall. Compared to most recent study performed at [facility] September 23, 2024, left ventricular systolic function has mildly improved. ECHO at [facility] 09/23/24 Left ventricular systolic function is moderately reduced LVEF = 35-40% There is a large sized apical, septal, anteroseptal, anterior, inferior, posterior, and lateral wall motion abnormality with hypokinesis to akinesis of the segments There is mild to moderate mitral regurgitation Cardiac CATH at [facility] 09/22/24 Summary: 1. Inferior STEMI/subacute distal circumflex stent thrombosis 2. Mild to moderate non-culprit coronary artery disease - 40-50% earlymid LAD at takeoff of D1 30% proximal to mid RCA 3. Elevated intracardiac filling pressure (LVEDP 24 post procedure) 4. Successful PCI of distal circumflex stent thrombosis with new OBDULIA (3.0 x 18 mm Andrey) overlapping proximal aspect of prior stent and extending back to proximal circumflex. Stents postdilated with 3.5 NC Cardiac CATH 09/18/24 Impressions: * Coronary disease - hemodynamically significant Mid to distal AV groove LCX sequential 80% and 90% stenoses Mid LAD focal 40% stenosis. IFR 0.94 (hemodynamically insignificant. Mid RCA mild nonobstructive disease * LVEDP = 9mmHg * Intervention Sequential LCX lesions treated with 1 drug-eluting stent (2.25mm x 26mm Andrey Bosque). Distal stent post-dilated with a 2.5mm NC and prox stent post-dilated with a 3.0mm NC balloon. IVUS used for stent optimization Excellent angiographic result with 0% residual stenosis, ADORE 3 flow, and no evidence of dissection or perforation. ECHO 08/20/24 The qualitative LV ejection fraction is 40-44% (mildly reduced). There is a large sized apical, septal, anteroseptal, anterior, and inferior wall motion abnormality with hypokinesis to akinesis of the segments. Mild mitral regurgitation is present. Compared to last available study changes are noted as follows: Ischemic cardiomyopathy with [id number] LV systolic dysfunction now present. Coding Level of Care Code 73407 IN/OBS CONSULT LVL 4,60M Diagnoses Unstable angina pectoris I20.0
[2025-03-31] MEDS ORDERED: TICAGRELOR 90 MG TAB PO ONE (13:15)
[2025-03-31] MEDS: LEVOTHYROXINE SODIUM 25 MCG TABLET PO ONE (13:41)
[2025-03-31] MEDS: PRASugrel TAB 10 MG TAB PO ONE (13:41)
[2025-03-31] MEDS: ROSUVASTATIN CALCIUM 20 MG TAB PO ONE (13:41)
[2025-03-31] MEDS: VALSARTAN/SACUBITRIL 26/24MG TAB PO ONE (13:41)
--- NOTE | 2025-03-31 14:11 | History & Physical Report ---
Date of Service March 31, 2025 Assessment & Plan (1) Unstable angina pectoris: (2) Chest pain: (3) CAD (coronary artery disease): (4) HFrEF (heart failure with reduced ejection fraction): Plan Ms. Palm is a 69yo lady with PMH of CAD s/p 2 stents, HFrEF, HLD, and asthma who presented to the ED due to acute chest and arm pain. Currently being managed for unstable angina. #Angina secondary to Unstable Angina vs NSTEMI #CAD ECG: old LBBB, troponin 20-> 18.1, CXR: no acute process -admit to PCU -cardiology on board, appreciate recs -trend troponins -continue aspirin and prasugrel daily -nitroglycerin prn -NPO after midnight for anticipated cath tomorrow -follow TTE HFrEF -continue Entresto 24/26mg bid -continue metroprolol 37.5mg qPM -additional GDMT deferred due to historically low BPs Hypothyroidism -continue home dose levothyroxine HLD -continue home dose atorvastatin GERD -continue esomeprazole Asthma -continue home regimen DVT prophylaxis: heparin Diet: heart healthy, NPO after midnight History of Present Illness Chief Complaint: chest pain Primary Care Provider: NO PCP Ms. Palm is a 69yo lady with PMH of CAD s/p 2 stents, HFrEF, HLD, and asthma who presented to the ED due to acute chest and arm pain. On Sunday, the pt noticed her left arm had a penetrating pain sensation. She was advised by her medical staff coordinator to go to the ED if she develops chest pain. Today, she noticed a pressure-like sensation on her left chest that lasted a few minutes which prompted her to be seen. She reports the chest discomfort radiated to her left neck and left jaw. Her left arm pain has persisted since Sunday. At bedside, she presently does not have chest pain/discomfort but does have the arm pain. She denies nausea, vomiting, sweating, SOB, abdominal pain, aggravating, or relieving factors. Pt notes she had two myocardial infarctions in September requiring two stents. She has had ongoing chest discomfort since that time occurring a few times per week. She had a stress test scheduled on 04/02. ROS otherwise as above. Allergies Allergy/AdvReac Type Severity Reaction Status Date / Time atorvastatin Allergy Intermediate Hives Verified 03/31/25 13:13 morphine AdvReac Intermediate tachycardia Verified 03/31/25 13:13 c Home Medications Medication Instructions Recorded Confirmed Type albuterol sulfate 90 mcg/actuation 2 puff inhalation Q6H PRN Wheezing 05/11/20 03/31/25 History aerosol inhaler esomeprazole magnesium 40 mg 40 mg PO HS 05/11/20 03/31/25 History capsule,delayed release (Nexium) montelukast 10 mg tablet 10 mg PO QPM 05/11/20 03/31/25 History (Singulair) acetaminophen 500 mg tablet 1,000 mg PO ONCE PRN Pain 08/29/22 03/31/25 History (Tylenol Extra Strength) omalizumab 150 mg subcutaneous 225 mg subcut Q14D 08/29/22 03/31/25 History solution (Xolair) diclofenac sodium 1 % topical gel 1 g topical QID PRN pain #100 grams 11/22/22 03/31/25 Rx evolocumab 140 mg/mL subcutaneous 140 mg subcut Q14D 11/22/22 03/31/25 History pen injector (Carlos Canela) aspirin 81 mg tablet,delayed 81 mg PO QAM 30 days #30 tabs 09/26/24 03/31/25 Rx release rosuvastatin 20 mg tablet 20 mg PO HS 30 days #30 tabs 09/26/24 03/31/25 Rx sacubitril 24 mg-valsartan 26 mg 1 tab PO BID 30 days #60 tabs 09/26/24 03/31/25 Rx tablet (Entresto) budesonide-formoterol HFA 160 2 puff inhalation BID 03/31/25 03/31/25 History mcg-4.5 mcg/actuation aerosol inhaler (Symbicort) gabapentin 300 mg capsule 300 mg PO TID 03/31/25 03/31/25 History levalbuterol tartrate 45 2 puff inhalation Q6H PRN 03/31/25 03/31/25 History mcg/actuation aerosol inhaler sob/wheezing levothyroxine 25 mcg tablet 25 mcg PO QAM 03/31/25 03/31/25 History (Synthroid) megestrol 40 mg tablet 40 mg PO DAILY PRN Other 03/31/25 03/31/25 History metoprolol succinate 25 mg 37.5 mg PO QPM 03/31/25 03/31/25 History tablet,extended release 24 hr prasugrel HCl 10 mg tablet 10 mg PO DAILY 03/31/25 03/31/25 History tezepelumab-ekko 210 mg/1.91 mL 210 mg subcut UD 03/31/25 03/31/25 History (110 mg/mL) subcutaneous pen injector (Tezspire) Past Med/Surg History Problem List (Updated 03/31/25 @ 15:27 by Arthur Strickland MD) HFrEF (heart failure with reduced ejection fraction) Unstable angina pectoris Acute heart failure with reduced ejection fraction and diastolic dysfunction Presence of drug coated stent in left circumflex coronary artery CAD (coronary artery disease) Status post right knee replacement (~05/2023) Encounter for pre-operative examination Osteoarthritis of right knee Lumbar facet joint syndrome Asthma well controlled, rescue inhaler reduced since starting Xolair-average a few times monthly-last use several weeks ago, triggers-pollens, humidity, pollution Right knee pain Piriformis syndrome of right side Thalassemia Osteoporosis Hyperlipidemia with target LDL less than 100 Chronic rhinitis GERD (gastroesophageal reflux disease) controlled, stable per pt Medical History Coronary stent thrombosis Chest pain ST elevation (STEMI) myocardial infarction Cerebral aneurysm 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 the anterior interhemispheric fissure on 12/2022 head MRA-followed by [facility] PCP to chart review Hyperparathyroidism PSVT (paroxysmal supraventricular tachycardia) CKD (chronic kidney disease) stage 3, GFR 30-59 ml/min Sleep apnea demonstrated on 2020 sleep study Surgical History History of heart artery stent S/P medial meniscectomy of right knee History of section x1 History of esophagogastroduodenoscopy (EGD) History of colonoscopy History of lumbar surgery L4-L5 fusion H/O sinus surgery H/O breast biopsy unsure which side, negative Family History Mother Asthma Diabetes Stroke Hypertension Sister Arthritis Brother Arthritis Social History Smoking Status: Never smoker Second Hand Exposure: No; Do You Dip or Chew Tobacco: No; Hx Alcohol Use: No Hx Substance Use: No Preferred Language: Armenian Communication Ability: Effective Visual Impairment: No Limitations Hearing Ability: Normal Rn Social Work Required: No Beliefs That Will Affect Care: Cultural Cultural Beliefs: no beef marital status: Single Current Living Situation: Family Current Living Situation Comment: 2 children current occupational status: retired current occupation: Retired Other Information That Helps Us Care for You: No Feels Safe at Home: Yes Safety Concerns: Feels Safe At This Time Assistive Devices: Glasses Review of Systems Review of Systems: per HPI Physical Exam Physical Exam: GA: well groomed, well nourished in no apparent distress. AAOx3 HEENT: head normocephalic, atraumatic. EOMI RESP: vesicular breath sounds b/l. No wheezes, rhonchi, or rales CARDIOVASCULAR: S1 and S2 heard. No murmurs, rubs, or gallops. Radial pulses 2+ b/l RRR GI: no tenderness or masses felt to palpation MSK: no gross abnormalities or focal deficits SKIN: warm, dry, no edema PSYCH: appropriate mood and affect NEURO: no focal deficits. speech fluent Results & Data Results & Data Vital Signs (Past 12 Hours) Vital Signs Temp Pulse Pulse Resp BP BP Pulse Ox 03/31/25 13:00 93 H 18 140/56 L 98 03/31/25 11:31 75 18 122/80 97 03/31/25 10:15 83 03/31/25 09:54 89 22 122/80 99 03/31/25 09:54 89 99 03/31/25 09:36 36.5 C 91 H 18 135/84 100 O2 Del Method 03/31/25 13:00 03/31/25 11:31 03/31/25 10:15 03/31/25 09:54 Room Air 03/31/25 09:54 Room Air 03/31/25 09:36 Room Air Code Status & VTE Plan VTE Prophylaxis Plan VTE Prophylaxis will be ordered: Yes Supervising Physician Co-Signing Physician Notes I personally examined the patient and verified levine points of history and exam, discussed case, and agree with decision making and plan documented by Dr. Strickland. Patient is a 77-year-old female with a past medical history of CAD, ischemic cardiomyopathy, hyperlipidemia, and severe persistent asthma presenting with chest pressure and left arm pain on admission for unstable angina pectoralis. Troponin elevated. On exam patient appears comfortable, non diaphoretic, conjunctiva clear, mucosa moist, non-labored breathing, lungs clear to auscultation bilaterally, no rales/rhonchi/wheezing, heart with regular rate and rhythm, no murmur appreciated, bowel sounds present, lower extremities without edema. Cardiology planning catheterization tomorrow. Resident Activity Tracking Resident Involvement: Resident Care Provided Care Provided: Adult Hospital Medicine
[2025-03-31] MEDS: HEPARIN 25000 UNIT/500 ML D5W 25,000 UNITS/500 ML BAG IV SCH (14:25)
[2025-03-31] MEDS ORDERED: MELATONIN 3 MG TAB PO PRN (15:46)
[2025-03-31] MEDS ORDERED: ALUMINUM/MAGNESIUM SUSP 30 ML UDC PO PRN (15:46)
[2025-03-31] MEDS ORDERED: DICLOFENAC SOD 1% GEL 100 GM TUBE EXT PRN (15:46)
[2025-03-31] MEDS ORDERED: ACETAMINOPHEN 500 MG TAB PO PRN (15:46)
[2025-03-31] MEDS ORDERED: POLYETHYLENE (MIRALAX) 17 GM PACK PO PRN (15:46)
[2025-03-31] MEDS ORDERED: ONDANSETRON INJ 2 MG/ML 2 ML VIAL IV PRN (15:46)
[2025-03-31] MEDS ORDERED: MEGESTROL ACETATE 40 MG TAB PO PRN (15:46)
[2025-03-31] MEDS ORDERED: NITROGLYCERIN SL 0.4 MG/TAB TAB SL PRN (15:46)
[2025-03-31] MEDS ORDERED: MoRPHine SULFATE 2 MG/ML CARP IV PRN (15:46)
[2025-03-31] MEDS ORDERED: LEVALBUTEROL TARTRATE 15 GM HFA.AER.AD INH PRN (15:46)
[2025-03-31 15:47] LABS: INR 1.0 (0.9-1.1); Partial Thromboplastin Time 24 Seconds (21-31); Prothrombin Time 10.8 Seconds (9.0-12.0)
[2025-03-31] MEDS: Heparin IV Adult Wt-Based Low-Dose *NO* INITIAL Bolus Protocol IV STA (16:38)
[2025-03-31 16:43] LABS: Hematocrit (blood only) 31.8 % (37.0-47.0); Hemoglobin 9.6 g/dL (12.0-16.0); Mean Corpuscular Hemoglobin 17.9 pg (25.0-34.0); Mean Corpuscular Volume 59.3 fL (80.0-100.0); Platelet Count 349 K/uL (130-400); RDW Standard Deviation 33.5 fL (36.4-46.3); Red Blood Count 5.36 M/uL (4.20-5.40); White Blood Count 6.89 K/ul (4.8-10.8)
[2025-03-31 16:46] LABS: Acanthocytes 1+; Hypochromasia Present; Immature Granulocytes # (auto) 0.02 K/uL (0.01-0.20); Immature Granulocytes % (auto) 0.3 %; Microcytosis Present; Ovalocytes 2+; Polychromasia 1+
[2025-03-31] MEDS: GABAPENTIN 300 MG CAP PO SCH (17:12)
[2025-03-31] MEDS ORDERED: BENZONATATE 100 MG CAPSULE PO PRN (20:04)
--- NOTE | 2025-03-31 20:09 | XCELERA ---
[id number] [email or web address]\[id number]
[2025-03-31] MEDS: METOPROLOL SUCC 25MG EXT REL TAB PO SCH (20:16)
[2025-03-31] MEDS: VALSARTAN/SACUBITRIL 26/24MG TAB PO SCH (20:17)
[2025-03-31] MEDS: MONTELUKAST SODIUM 10 MG TABLET PO SCH (20:17)
[2025-03-31] MEDS ORDERED: COUGH DROP (SUGAR FREE) LOZ 24 LOZ/1 BOX BUCCAL PRN (20:25)
[2025-03-31 21:07] LABS: ANTI-Xa, UFH(UnfractionatedHep 0.22 IU/ml (0.3-0.7)
[2025-04-01] MEDS: ACETAMINOPHEN 500 MG TAB PO PRN (00:59)
[2025-04-01 03:46] LABS: Hematocrit (blood only) 29.0 % (37.0-47.0); Hemoglobin 8.8 g/dL (12.0-16.0); Immature Granulocytes # (auto) 0.02 K/uL (0.01-0.20); Immature Granulocytes % (auto) 0.3 %; Mean Corpuscular Hemoglobin 17.7 pg (25.0-34.0); Mean Corpuscular Volume 58.5 fL (80.0-100.0); RDW Standard Deviation 33.1 fL (36.4-46.3); Red Blood Count 4.96 M/uL (4.20-5.40); White Blood Count 6.92 K/ul (4.8-10.8)
[2025-04-01 03:51] LABS: Platelet Count 311 K/uL (130-400)
[2025-04-01 04:05] LABS: Anion Gap 6.0 (3-11); Blood Urea Nitrogen 14.0 mg/dl (6-23); Calcium 8.5 mg/dl (8.6-10.3); Carbon Dioxide 23.0 mmol/L (21-32); Chloride 107.0 mmol/L (98-107); Creatinine Clr Calc Pharmacy 56.1 ml/min; Magnesium 2.1 mg/dl (1.7-2.4); Potassium 3.6 mmol/L (3.5-5.1); Sodium 136.0 mmol/L (136-145)
[2025-04-01 04:07] LABS: ANTI-Xa, UFH(UnfractionatedHep 0.38 IU/ml (0.3-0.7)
[2025-04-01 04:10] LABS: Acanthocytes 1+; Microcytosis Present; Ovalocytes 2+; Polychromasia 2+
[2025-04-01] MEDS: LEVOTHYROXINE SODIUM 25 MCG TABLET PO SCH (05:58)
--- NOTE | 2025-04-01 06:57 | Hospitalist Progress Note ---
Date of Service April 01, 2025 Assessment & Plan (1) Unstable angina pectoris: (2) Chest pain: (3) CAD (coronary artery disease): (4) HFrEF (heart failure with reduced ejection fraction): Plan Ms. Palm is a 69yo lady with PMH of CAD s/p 2 stents, ischemic cardiomyopathy, hyperlipidemia, and severe persistent asthma who presented to the ED due to acute chest pressure and left arm pain. Currently being managed for unstable angina. #Unstable Angina #CAD ECG: old LBBB, troponin 20-> 18.1, CXR: no acute process TTE: EF 35-40% -cardiology on board, appreciate recs -troponin peak at 20 -continue aspirin and prasugrel daily -nitroglycerin prn -plan for cath today HFrEF -held Entresto due to soft BPs -continue metroprolol 37.5mg qPM -additional GDMT deferred due to historically low BPs Hypothyroidism -continue home dose levothyroxine HLD -continue home dose atorvastatin GERD -continue esomeprazole Asthma -continue home regimen DVT prophylaxis: heparin Diet: NPO until cath, then heart healthy diet Admission and Anticipated Discharge Date Admission Date: March 31, 2025 Supervising Physician Co-Signing Physician Notes I personally examined the patient and verified levine points of history and exam, discussed case, and agree with decision making and plan documented by Dr. Strickland. Patient is a 77-year-old female with a past medical history of CAD, ischemic cardiomyopathy, hyperlipidemia, and severe persistent asthma presenting with chest pressure and left arm pain on admission for unstable angina pectoralis. Patient cardiac catheterization today with no clear indication on why she continues to have left upper extremity pain. MRI cervical spine has been ordered. Subjective No overnight events. She was seen and examined this AM at bedside. No present chest pressure/pain, still has the left arm pain. Denies worsening of sx. Denies fever, chills, SOB, N/V, abdominal pain, or complaints. Review of Systems Review of Systems: per HPI Physical Exam Physical Exam: GA: well groomed, well nourished in no apparent distress. AAOx3 HEENT: head normocephalic, atraumatic. EOMI RESP: vesicular breath sounds b/l. No wheezes, rhonchi, or rales CARDIOVASCULAR: S1 and S2 heard. No murmurs, rubs, or gallops. Radial pulses 2+ b/l RRR GI: no tenderness or masses felt to palpation MSK: no gross abnormalities or focal deficits SKIN: warm, dry, no edema PSYCH: appropriate mood and affect NEURO: no focal deficits. speech fluent Results & Data Results & Data Vital Signs (Past 12 Hours) Vital Signs Temp Pulse Pulse Resp BP BP Pulse Ox 04/01/25 04:58 68 04/01/25 03:11 36.9 C 76 17 110/66 98 03/31/25 23:22 36.7 C 85 17 126/74 97 03/31/25 22:03 73 03/31/25 20:00 03/31/25 20:00 84 03/31/25 19:55 37.0 C 85 17 112/63 97 O2 Del Method 04/01/25 04:58 04/01/25 03:11 Room Air 03/31/25 23:22 Room Air 03/31/25 22:03 03/31/25 20:00 Room Air 03/31/25 20:00 03/31/25 19:55 Room Air Resident Activity Tracking Resident Involvement: Resident Care Provided Care Provided: Adult Hospital Medicine (3) CAD (coronary artery disease) Associated angina: with unstable angina Coronary Disease-Associated Artery/Lesion type: [place] artery [place] vs. transplanted heart: [place] heart Qualified Code(s): I25.110 - Atherosclerotic heart disease of [place] coronary artery with unstable angina pectoris
[2025-04-01] MEDS: ASPIRIN 81 MG ECTAB PO SCH (09:27)
[2025-04-01] MEDS: PRASugrel TAB 10 MG TAB PO SCH (09:27)
[2025-04-01] MEDS: FLUTICASONE/VILANTEROL 200/25MCG 14 PUFFS/INHALER INH SCH (09:27)
--- NOTE | 2025-04-01 09:51 | Cardiology Progress Note ---
Date of Service April 01, 2025 Assessment & Plan (1) Unstable angina pectoris: Plan: Echocardiogram performed 03/31 revealed abnormal septal motion consistent with LBBB and lateral wall motion abnormality consistent with her prior Cx territory IN, LVEV 35-40% , relatively stable compared to prior. No volume overload on examination . -Continue PROPOSAL COORDINATOR medications including aspirin and prasugrel . -Entresto held this am due to SBP less than 100 mm Hg. -Continue heparin infusion -NPO except medications for cardiac cath this afternoon. -If cath unrevealing for culprit, may need to consider cervical radiculopathy as an alternative diagnosis. Adwoa Sanders DO Admission and Anticipated Discharge Date Admission Date: March 31, 2025 Subjective Patient seen in cardiology follow up. Ongoing intermitted chest tightness, upper arm tightness overnight and this am. Patient however appears overall comfortable. Review of Systems Review of Systems: All systems reviewed & are unremarkable except as noted in HPI & below Physical Exam Physical Exam: General: no acute distress and stated age Eyes: conjunctiva are pink and non-injected, sclera clear Neck: normal jugular venous pulse, no hepatojugular reflux Chest: normal shape and normal respiratory effort Lungs: clear to auscultation and percussion Cardiac Exam: - regular heart sounds, no murmurs, rubs, or gallops, no jugular venous distention Abdomen: abdomen soft, non-tender, no abnormal masses and no hepatosplenomegaly Extremities: no edema and no cyanosis Neuro:awake, conversant, follows commands, no focal motor deficits Psych: appropriate affect and insight. Results & Data Vital Signs (Past 12 Hours) Vital Signs Temp Pulse Pulse Resp BP BP Pulse Ox 04/01/25 07:11 36.4 C L 80 18 92/56 L 97 04/01/25 04:58 68 04/01/25 03:11 36.9 C 76 17 110/66 98 03/31/25 23:22 36.7 C 85 17 126/74 97 03/31/25 22:03 73 O2 Del Method 04/01/25 07:11 Room Air 04/01/25 04:58 04/01/25 03:11 Room Air 03/31/25 23:22 Room Air 03/31/25 22:03 Laboratory Results Cardiac Enzymes 03/31/25 03/31/25 Range/Units 10:03 11:15 AST 25 (13-39) U/L Troponin I High Sens 20.2 H 18.1 H (0-14) pg/ml Coagulation 03/31/25 Range/Units 15:03 PT 10.8 (9.0-12.0) Seconds APTT 24 (21-31) Seconds CBC 03/31/25 03/31/25 04/01/25 Range/Units 10:03 16:07 03:30 WBC 6.47 6.89 6.92 (4.8-10.8) K/ul RBC 5.67 H 5.36 4.96 (4.20-5.40) M/uL Hgb 10.3 L 9.6 L 8.8 L (12.0-16.0) g/dL Hct 33.7 L 31.8 L 29.0 L (37.0-47.0) % Plt Count 368 349 311 (130-400) K/uL Neut # (Auto) 4.27 4.08 3.76 (1.40-6.50) K/uL Lymph # (Auto) 1.54 2.10 2.35 (1.20-3.40) K/uL Cross # (Auto) 0.56 0.62 H 0.68 H (0.11-0.59) K/uL Eos # (Auto) 0.04 0.04 0.07 (0.00-0.50) K/uL Baso # (Auto) 0.04 0.03 0.04 (0.00-0.20) K/uL Comprehensive Metabolic Panel 03/31/25 04/01/25 Range/Units 10:03 03:30 Sodium 137 136 (136-145) mmol/L Potassium 4.7 3.6 D (3.5-5.1) mmol/L Chloride 105 107 (98-107) mmol/L Carbon Dioxide 26 23 (21-32) mmol/L BUN 16 14 (6-23) mg/dl Creatinine 0.96 0.84 (0.6-1.2) mg/dl Glucose 110 H (70-99(Fasting)) mg/dl Calcium 9.2 8.5 L (8.6-10.3) mg/dl AST 25 (13-39) U/L ALT 11 (7-52) U/L Alkaline Phosphatase 81 (34-104) U/L Total Protein 7.4 (6.0-8.3) gm/dl Albumin 4.0 (3.4-5.0) gm/dl Intake and Output 03/31/25 04/01/25 04/01/25 22:59 06:59 14:59 Intake Total 320.75 / 477.016 156.266 / 477.016 Balance 320.75 / 477.016 156.266 / 477.016 Intake: IV 100.75 / 257.016 156.266 / 257.016 Heparin 08342 Unit/500 ml D5w 100.75 / 257.016 156.266 / 257.016 25,000 units In 500 ml @ 750 UNITS/HR 15 mls/hr IV .Q24H JEWEL Rx#:[id number] Oral 220 / 220 Other: # Unmeasured Voids 2 Weight 68.4 kg 72 kg Weight Measurement Method [facility] PG Care Time/CCT Total # of Minutes Spent Total Time Spent with Patient: Total time spent is greater than 50% in coordination of care (as documented) at patient's floor/unit and/or counseling patient: Coding Level of Care Code 15190 SUB INP/OBS CARE 3/50MIN Diagnoses Unstable angina pectoris I20.0
--- NOTE | 2025-04-01 14:39 | Pre Anesthesia Assessment ---
Date of Service April 01, 2025 Pre Sedation Assessment Vital Signs Temp Pulse Pulse Resp BP BP Pulse Ox 04/01/25 13:54 84 18 141/76 H 97 04/01/25 11:55 98.6 F 83 18 115/73 96 04/01/25 10:58 04/01/25 07:11 97.5 F L 80 18 92/56 L 97 04/01/25 04:58 68 04/01/25 03:11 98.4 F 76 17 110/66 98 03/31/25 23:22 98.1 F 85 17 126/74 97 03/31/25 22:03 73 03/31/25 20:00 03/31/25 20:00 84 03/31/25 19:55 98.6 F 85 17 112/63 97 03/31/25 15:47 98.4 F 83 17 135/76 98 03/31/25 15:00 85 18 146/62 H 98 O2 Del Method 04/01/25 13:54 Room Air 04/01/25 11:55 Room Air 04/01/25 10:58 Room Air 04/01/25 07:11 Room Air 04/01/25 04:58 04/01/25 03:11 Room Air 03/31/25 23:22 Room Air 03/31/25 22:03 03/31/25 20:00 Room Air 03/31/25 20:00 03/31/25 19:55 Room Air 03/31/25 15:47 Room Air 03/31/25 15:00 Cardiovascular + regular rate Respiratory + respiratory effort normal Pre-Sedation Airway Assessment Smoking Status: Never smoker Hx Sleep Apnea: No Hx Difficult Intubation: No Short, Thick Neck: No Thyromental Distance: < 3.5 Finger Breadths Oral Cavity: + WNL Mallampati Class: II ASA: ASA2E NPO Status Date of Last Intake of Fluids: 03/31/25 Time of Last Intake of Fluids: 21:00 Date of Last Intake of Solid Food: 03/31/25 Time of Last Intake of Solid Foods: 21:00 Procedure Planning Contraindications for Sedation: none Current Medications Reviewed: Yes Notes The planned sedation has been discussed with the patient. Informed Consent was obtained. I have identified the patient, determined the appropriateness of sedation and have assessed the patient immediately prior to the procedure. All medicine(s) and interventions are by my order.
[2025-04-01] MEDS: LIDOCAINE 1% LOCAL 20 ML VIAL ONE (15:16)
[2025-04-01] MEDS: niCARdipine 2,000 MCG/20 ML SYR ONE (15:17)
[2025-04-01] MEDS: MIDAZOLAM HCL 1 MG/ML 2ML VIAL ONE (15:17)
[2025-04-01] MEDS: NITROGLYCERIN/D5W 100MCG/ML 20ML SYR ONE (15:17)
[2025-04-01] MEDS: HEPARIN (PORCINE) 1000 UNIT/ML 10 ML (CATH LAB USE ONLY) ONE (15:18)
--- NOTE | 2025-04-01 15:23 | Post Anesthesia Assessment ---
Date of Service April 01, 2025 Post Sedation Assessment Vital Signs Temp Pulse Pulse Resp BP BP Pulse Ox 04/01/25 13:54 84 18 141/76 H 97 04/01/25 13:36 93 H 04/01/25 11:55 98.6 F 83 18 115/73 96 04/01/25 10:58 04/01/25 07:11 97.5 F L 80 18 92/56 L 97 04/01/25 04:58 68 04/01/25 03:11 98.4 F 76 17 110/66 98 03/31/25 23:22 98.1 F 85 17 126/74 97 03/31/25 22:03 73 03/31/25 20:00 03/31/25 20:00 84 03/31/25 19:55 98.6 F 85 17 112/63 97 03/31/25 15:47 98.4 F 83 17 135/76 98 O2 Del Method 04/01/25 13:54 Room Air 04/01/25 13:36 04/01/25 11:55 Room Air 04/01/25 10:58 Room Air 04/01/25 07:11 Room Air 04/01/25 04:58 04/01/25 03:11 Room Air 03/31/25 23:22 Room Air 03/31/25 22:03 03/31/25 20:00 Room Air 03/31/25 20:00 03/31/25 19:55 Room Air 03/31/25 15:47 Room Air Recovery Score Activity: Moves 4 extremities Respiration: Deep Breath/Cough Circulation: +/-20% PreAnes Value Consciousness: Fully Awake Oxygen Saturation: O2 needed for >90% Discharge Sedation Level of Care: Fast Track Phase II
[2025-04-01] MEDS: ALBUTEROL HFA 8 GM INHALER INH PRN (17:16)
[2025-04-01] MEDS: VALSARTAN/SACUBITRIL 26/24MG TAB PO SCH (20:12)
[2025-04-01] MEDS: ROSUVASTATIN CALCIUM 20 MG TAB PO SCH (20:12)
--- NOTE | 2025-04-01 21:48 | Cardiac Catheterization ---
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 Cardiac Status Clinical evaluation leading to the procedure CAD Presenation: Stable angina Diagnostic Physicians Name: Arthur Eduardo MD Closure Device Recommendations: Medical Therapy and/or Counseling Cardiac Cath Procedure Full Procedure Date April 01, 2025 Pre-Procedure Diagnosis Pre-Procedure Diagnosis: Angina and CAD AUC Score AUC Score: 7 Post-Procedure Diagnosis Post-Procedure Diagnosis: Moderate CAD Procedure(s) Performed Procedure(s) Performed: Coronary Angiography, Left Heart Cath and Ultrasound Guided Vascular Access [employer] Arthur Eduardo MD 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 Recurrent chest symptoms Access: 6 Fr slender right ulnar artery Catheters: [place] Findings: LM -normal caliber, no significant disease LAD -medium caliber, 40-50% earlymid stenosis at takeoff of D1 remainder of LAD without significant disease and wraps around apex. D1 medium caliber, 40% ostial Circumflex -medium caliber, proximal to mid stents widely patent with no significant disease. Small to medium OM3 with 70% ostial. Left PLB without significant disease. RCA -dominant, medium caliber, 30% proximal to mid disease, distal vessel without significant disease. RPDA without disease. LVEDP -6 Arterial Closure: TR band Summary: 1. Nonobstructive major epicardial coronary artery disease -Widely patent proximal to mid circumflex stents 40-50% earlymid LAD stenosis at takeoff of D1 30% proximal to mid RCA disease 2. Stable small branch vessel disease 70% ostial jailed OM3 40% ostial D1 3. Normal intracardiac filling pressure Recommendations: No acute or high risk disease to explain patient's rest chest symptoms. Additional noncardiac chest pain workup and antianginal therapy/ASCVD risk factor modification per Dr. Sanders. Hemodynamics Rest Ao:: 116/63/92 Final Ao: 123/62/89 LV: 121/6 Recommendations Recommendations: Medical Therapy and/or Counseling Radiation Exposure (mGy) 303 Contrast (mls) 35 Anesthesia Moderate 1508-2161 Procedural Complication(s) None Disposition PCU I attest to the content of the Intraoperative Record and any orders documented therein. Any exceptions are noted below. [facility] Card Cath Procedure Codes Cardiac Catheterization Procedure 1: Cardiovascular Cath Procedures: 57316 Coronaries and LHC (+/-LV) Moderate Sedation Procedure 1: Sedation/Anesthesia: 51665 Mod Sedation by the same physician;Init15 Min Child Age 5 & Up PG Care Time/CCT Total # of Minutes Spent Total Time Spent with Patient: Total time spent is greater than 50% in coordination of care (as documented) at patient's floor/unit and/or counseling patient:
[2025-04-01 23:37] VITALS: RESP 16
--- NOTE | 2025-04-02 04:17 | Magnetic Resonance Report ---
Exam(s): MRI C SPINE EXAM: MR Cervical Spine Without Intravenous Contrast CLINICAL HISTORY: Reason for exam: left chest and arm pain,cervical radiculopathy. OTHER: Other Notes: LEFT CHEST AND ARM PAIN CERVICAL RADICULOPATHY NORMAL MODE PROP SCANS FOR MOTION PT. ON MONITOR CARDIAC CATH TODAY 04/01/25 TECHNIQUE: Magnetic resonance images of the cervical spine without intravenous contrast in multiple planes. COMPARISON: No relevant prior studies available. FINDINGS: This study is limited thickening motion artifact. Vertebrae: There are 7 cervical type vertebral bodies with a mild generalized curved to the left and straightening normal cervical lordosis. The bone marrow signal is heterogeneous with reactive endplate changes. No acute fracture. There is mild to moderate facet arthropathy with mild synovitis. Spinal cord: There is flattening the ventral cord at C3-4, C4-5 and C5- 6 with subtle cord edema and C4-5. The craniocervical junction is normal without evidence of Chiari malformation. Soft tissues: The cervical flow voids are intact. DISCS/SPINAL CANAL/NEURAL FORAMINA: C2-C3: Advanced disc degeneration with posterior disc osteophyte complex flattening the ventral thecal sac. C3-C4: Advanced disc degeneration with posterior disc osteophyte complex flattening the ventral cord without evidence for abnormal cord signal and causing a critical spinal canal stenosis with AP diameter measuring 6 mm. C4-C5: Advanced disc degeneration with posterior disc osteophyte complex flattening the ventral cord with subtle cord edema and causing a critical spinal canal stenosis with AP diameter measuring 4.9 mm. C5-C6: Moderate disc degeneration with annular disc bulge flattening the ventral cord without evidence for abnormal cord signal and causing the severe spinal canal stenosis. C6-C7: Moderate disc degeneration with annular disc bulge flattening the ventral thecal sac and causing a moderate spinal canal stenosis. C7-T1: The intervertebral disc is normal. IMPRESSION: 1. Advanced disc degeneration at C2-3, C3-4, C4-5 and moderate disc degeneration at C5-6 and C6-7 with annular disc bulging or posterior disc osteophyte complex flattening the ventral thecal sac and flattening the ventral cord at C3-4, C4-5 and C5-6 with subtle cord edema and C4-5. Recommend neurosurgical consult for decompression. 2. There is a critical spinal canal stenosis at C3-4, C4-5, severe stenosis at C5-6 and moderate stenosis at C6-7. 3. No evidence of significant neural foraminal stenosis in this motion degraded study. 4. There is mild to moderate facet arthropathy with mild synovitis. 5. No evidence of fracture, infection or tumor. Communications: Verify Receipt Electronically signed by: Sara Nichols MD 04/02/25 04:16 AM
[2025-04-02] MEDS: dexAMETHasone 10 MG in SYRINGE 0 ML IV ONE (05:51)
--- NOTE | 2025-04-02 06:45 | Hospitalist Progress Note ---
Date of Service April 02, 2025 Assessment & Plan (1) Unstable angina pectoris: (2) Chest pain: (3) CAD (coronary artery disease): (4) HFrEF (heart failure with reduced ejection fraction): Plan Ms. Palm is a 69yo lady with PMH of CAD s/p 2 stents, ischemic cardiomyopathy, hyperlipidemia, and severe persistent asthma who presented to the ED due to acute chest pressure and left arm pain. Currently being managed for unstable angina. #Cervical Spinal Stenosis Pt continues to have left sided arm pain -Ortho Spine consulted -pain management: #Unstable Angina #CAD ECG: old LBBB, troponin 20-> 18.1, CXR: no acute process TTE: EF 35-40% -cardiology on board, appreciate recs -troponin peak at 20 -continue aspirin and prasugrel daily -nitroglycerin prn -s/p cath HFrEF -held Entresto due to soft BPs -continue metroprolol 37.5mg qPM -additional GDMT deferred due to historically low BPs Hypothyroidism -continue home dose levothyroxine HLD -continue home dose atorvastatin GERD -continue esomeprazole Asthma -continue home regimen DVT prophylaxis: heparin Diet: NPO until cath, then heart healthy diet Admission and Anticipated Discharge Date Admission Date: March 31, 2025 Review of Systems Review of Systems: per HPI Physical Exam Physical Exam: GA: well groomed, well nourished in no apparent distress. AAOx3 HEENT: head normocephalic, atraumatic. EOMI RESP: vesicular breath sounds b/l. No wheezes, rhonchi, or rales CARDIOVASCULAR: S1 and S2 heard. No murmurs, rubs, or gallops. Radial pulses 2+ b/l RRR GI: no tenderness or masses felt to palpation MSK: no gross abnormalities or focal deficits SKIN: warm, dry, no edema PSYCH: appropriate mood and affect NEURO: no focal deficits. speech fluent Results & Data Results & Data Vital Signs (Past 12 Hours) Vital Signs Temp Pulse Pulse Resp BP Pulse Ox O2 Del Method 04/02/25 02:29 36.9 C 85 16 113/64 95 Room Air 04/01/25 23:01 36.7 C 80 16 124/73 96 Room Air 04/01/25 21:35 86 04/01/25 20:00 Room Air 04/01/25 19:23 36.9 C 94 H 18 106/64 95 Room Air Diagnostic Findings ADDENDUM: 04/02/25 04:53 Verify Receipt Verified receipt with PCU Nurse Ana, report will be given to on 04/02 04:53 (-05:00) Electronically signed by: Sara Nichols MD Electronically signed by: Sara Nichols MD 04/02/25 04:16 AM ADDENDUM END Exam(s): MRI C SPINE EXAM: MR Cervical Spine Without Intravenous Contrast CLINICAL HISTORY: Reason for exam: left chest and arm pain,cervical radiculopathy. OTHER: Other Notes: LEFT CHEST AND ARM PAIN CERVICAL RADICULOPATHY NORMAL MODE PROP SCANS FOR MOTION PT. ON MONITOR CARDIAC CATH TODAY 04/01/25 TECHNIQUE: Magnetic resonance images of the cervical spine without intravenous contrast in multiple planes. COMPARISON: No relevant prior studies available. FINDINGS: This study is limited thickening motion artifact. Vertebrae: There are 7 cervical type vertebral bodies with a mild generalized curved to the left and straightening normal cervical lordosis. The bone marrow signal is heterogeneous with reactive endplate changes. No acute fracture. There is mild to moderate facet arthropathy with mild synovitis. Spinal cord: There is flattening the ventral cord at C3-4, C4-5 and C5- 6 with subtle cord edema and C4-5. The craniocervical junction is normal without evidence of Chiari malformation. Soft tissues: The cervical flow voids are intact. DISCS/SPINAL CANAL/NEURAL FORAMINA: C2-C3: Advanced disc degeneration with posterior disc osteophyte complex flattening the ventral thecal sac. C3-C4: Advanced disc degeneration with posterior disc osteophyte complex flattening the ventral cord without evidence for abnormal cord signal and causing a critical spinal canal stenosis with AP diameter measuring 6 mm. C4-C5: Advanced disc degeneration with posterior disc osteophyte complex flattening the ventral cord with subtle cord edema and causing a critical spinal canal stenosis with AP diameter measuring 4.9 mm. C5-C6: Moderate disc degeneration with annular disc bulge flattening the ventral cord without evidence for abnormal cord signal and causing the severe spinal canal stenosis. C6-C7: Moderate disc degeneration with annular disc bulge flattening the ventral thecal sac and causing a moderate spinal canal stenosis. C7-T1: The intervertebral disc is normal. IMPRESSION: 1. Advanced disc degeneration at C2-3, C3-4, C4-5 and moderate disc degeneration at C5-6 and C6-7 with annular disc bulging or posterior disc osteophyte complex flattening the ventral thecal sac and flattening the ventral cord at C3-4, C4-5 and C5-6 with subtle cord edema and C4-5. Recommend neurosurgical consult for decompression. 2. There is a critical spinal canal stenosis at C3-4, C4-5, severe stenosis at C5-6 and moderate stenosis at C6-7. 3. No evidence of significant neural foraminal stenosis in this motion degraded study. 4. There is mild to moderate facet arthropathy with mild synovitis. 5. No evidence of fracture, infection or tumor. Resident Activity Tracking Resident Involvement: Resident Care Provided Care Provided: Adult Hospital Medicine (3) CAD (coronary artery disease) Associated angina: with unstable angina Coronary Disease-Associated Artery/Lesion type: [place] artery [place] vs. transplanted heart: [place] heart Qualified Code(s): I25.110 - Atherosclerotic heart disease of [place] coronary artery with unstable angina pectoris
[2025-04-02 06:55] LABS: ANTI-Xa, UFH(UnfractionatedHep < 0.10 IU/ml (0.3-0.7)
[2025-04-02 07:04] LABS: Hematocrit (blood only) 28.3 % (37.0-47.0); Hemoglobin 8.8 g/dL (12.0-16.0); Mean Corpuscular Hemoglobin 18.3 pg (25.0-34.0); Mean Corpuscular Volume 58.7 fL (80.0-100.0); Platelet Count 325 K/uL (130-400); RDW Standard Deviation 32.3 fL (36.4-46.3); Red Blood Count 4.82 M/uL (4.20-5.40); White Blood Count 5.95 K/ul (4.8-10.8)
[2025-04-02 07:05] LABS: Acanthocytes 1+; Immature Granulocytes # (auto) 0.01 K/uL (0.01-0.20); Immature Granulocytes % (auto) 0.2 %; Ovalocytes 1+; Poikilocytosis Present; Polychromasia 1+; Target Cells 1+
[2025-04-02 07:21] LABS: Anion Gap 8.0 (3-11); Blood Urea Nitrogen 11.0 mg/dl (6-23); Calcium 8.5 mg/dl (8.6-10.3); Carbon Dioxide 23.0 mmol/L (21-32); Chloride 107.0 mmol/L (98-107); Creatinine Clr Calc Pharmacy 53.5 ml/min; Potassium 3.9 mmol/L (3.5-5.1); Sodium 138.0 mmol/L (136-145)
[2025-04-02] MEDS: ISOSORBIDE MONO EXTENDED REL 30 MG TABCR PO SCH (08:55)
[2025-04-02 11:17] VITALS: BP 125/74; PULSE 97; TEMP 98.1; O2SAT 95
--- NOTE | 2025-04-02 12:19 | Discharge Summary ---
Date of Service April 02, 2025 Admission HPI Per Admitting Provider Ms. Palm is a 69yo lady with PMH of CAD s/p 2 stents, HFrEF, HLD, and asthma who presented to the ED due to acute chest and arm pain. On Sunday, the pt noticed her left arm had a penetrating pain sensation. She was advised by her glass bender to go to the ED if she develops chest pain. Today, she noticed a pressure-like sensation on her left chest that lasted a few minutes which prompted her to be seen. She reports the chest discomfort radiated to her left neck and left jaw. Her left arm pain has persisted since Sunday. At bedside, she presently does not have chest pain/discomfort but does have the arm pain. She denies nausea, vomiting, sweating, SOB, abdominal pain, aggravating, or relieving factors. Pt notes she had two myocardial infarctions in September requiring two stents. She has had ongoing chest discomfort since that time occurring a few times per week. She had a stress test scheduled on 04/02. ROS otherwise as above. Principal Diagnosis Cervical Spinal Stenosis Discharge Exam GA: well groomed, well nourished in no apparent distress. AAOx3 HEENT: head normocephalic, atraumatic. EOMI RESP: vesicular breath sounds b/l. No wheezes, rhonchi, or rales CARDIOVASCULAR: S1 and S2 heard. No murmurs, rubs, or gallops. Radial pulses 2+ b/l RRR GI: no tenderness or masses felt to palpation MSK: no gross abnormalities or focal deficits. no spinal or paraspinal tenderness SKIN: warm, dry, no edema PSYCH: appropriate mood and affect NEURO: CN 2-12 intact. speech fluent. UE strength 5/5 b/l. Brachial, Triceps, and Brachioradialis reflexes 2+ on LUE and RUE Brachial, Triceps reflexes 2+ , BR reflex deferred due access site. Discharge Data Allergies Allergy/AdvReac Type Severity Reaction Status Date / Time atorvastatin Allergy Intermediate Hives Verified 03/31/25 13:13 morphine AdvReac Intermediate tachycardia Verified 03/31/25 13:13 c Consultations 03/31/25 11:10 Consult Cardiology Routine 03/31/25 13:25 ED Decision to Admit Stat Procedures Performed Operation Date: 04/01/25 14:00 Actual Procedures p Cineradiography w/Routine Exam - Arthur Eduardo MD p Cath, Left with Cors and Vent - Arthur Eduardo MD Ordered Studies 04/01/25 13:37 CL Cath Imgs for PACS use only Routine 04/01/25 15:14 MRI Cervical [MR cervical spine wo con] Routine Hospital Course (1) Cervical spinal stenosis: (2) Unstable angina pectoris: (3) Chest pain: (4) CAD (coronary artery disease): (5) HFrEF (heart failure with reduced ejection fraction): Plan Ms. Palm is a 69yo lady with PMH of CAD s/p 2 stents, ischemic cardiomyopathy, hyperlipidemia, and severe persistent asthma who presented to the ED due to acute chest pressure and left arm pain. Currently being managed for unstable angina. #Cervical Spinal Stenosis Pt continues to have left sided arm pain -MRI Cervical: There is a critical spinal canal stenosis at C3-4, C4-5, severe stenosis at C5-6 and moderate stenosis at C6-7. -Ortho Spine consultation outpatient for management -pain management: duloxetine 30mg daily until follow-up, avoid NSAIDs #Unstable Angina #CAD ECG: old LBBB, troponin 20-> 18.1, CXR: no acute process TTE: EF 35-40% -cardiology on board, appreciate recs -troponin peak at 20 -continue aspirin and prasugrel daily -s/p cath-no major vessel occlusions HFrEF -Entresto half tab of 24/26mg daily bid -Imdur 15mg daily -continue metroprolol 37.5mg qPM -additional GDMT deferred due to historically low BPs Hypothyroidism -continue home dose levothyroxine HLD -continue home dose atorvastatin GERD -continue esomeprazole Asthma -continue home regimen Total Time Total Time Spent Total Time Spent (In Minutes): please see attending attestation Discharge Plan Discharge Items Patient Disposition: Home - Self-Care Reason For Visit: ANGINA Discharge Diagnosis: cervical spinal stenosis Condition on Discharge: Good Activity: Resume your previous activity Non-emergency contact: Primary Care Provider and Accounting Supervisor Call non-emergency contact if: your symptoms worsen, your pain is worsening, your pain is concerning for you and you have a fever Follow-up/Referrals: Teo Moreno DO [Surgeon] - Liborio Sanders DO [Accounting Supervisor] - PCP,NO [Primary Care Provider] - Diet: Heart Healthy Addtl Attending Provider Instructions: You were admitted to the hospital for left arm pain and chest pressure. You were treated with the appropriate medications and had a cardiac catheterization completed in the hospital. The catheterization did not show any major blockages concerning for a heart attack or serious heart pathology. The cardiology team ordered an MRI of your neck as certain conditions in your neck may be causing your arm pain. The MRI showed you have a severe spinal stenosis (narrowing of the spinal cord) in your neck which could be compressing the nerves that travel to your arm and can cause pain/discomfort. It is important to follow-up with a Surgeon who specializes in the spine for further management. Medications Your medication list has been reviewed and reconciled. An updated list is included with your discharge paperwork; please review this list closely and make note of any changes. For the arm pain, you may take 30mg of duloxetine once daily. A script for this has been sent to your pharmacy. Cardiology has also changed some of your medications. Please take half a tablet of Entresto twice daily and half a tablet of isosorbide mononitrate once daily. Please resume the rest of your medications as previously prescribed. Take your medications as instructed; do not skip a dose. Make sure all of your doctors know every medicine you are taking (including [id number] medicines, vitamins, and supplements). Call your PCP before taking any new medicines because some of these may interact with your current medications, or may make your symptoms worse. Follow-up appointments: Make a follow-up appointment with your PCP within the next week. It is very important that you follow up with them shortly after discharge from the hospital. * We are working on scheduling you with a Spine Surgeon as well. Keep all your follow-up appointments as already scheduled. If you cannot make an appointment, notify your provider. Please bring a copy of this discharge summary with you to your next office appointment so that your provider can review it at that time and stay updated on your hospitalization and potential changes in your care. Contact your PCP if your symptoms return or worsen. Call 911 or go to the ER if you experience any of the following: Sudden, severe abdominal pain or nausea/vomiting Severe chest pain, or chest pain that radiates (moves) to your jaw or arm Sudden, severe shortness of breath or difficulty breathing Thank you for allowing us to participate in your care. Pending Studies at Discharge: No Stand-Alone Forms: My [facility], Smoking Cessation Medications and DC Order Prescriptions: New isosorbide mononitrate 30 mg Tablet Extended Release 24 Hr 15 mg PO QAM Qty: 30 0RF sacubitril-valsartan [Entresto] 24-26 mg Tablet 0.5 tab PO BID Qty: 30 0RF duloxetine 30 mg capsule,delayed release(DR/EC) 30 mg PO DAILY Qty: 30 0RF Continued acetaminophen [Tylenol Extra Strength] 500 mg tablet 1,000 mg PO ONCE PRN (Reason: Pain) Xolair 150 mg recon soln 225 mg subcut Q14D diclofenac sodium 1 % gel 1 g topical QID PRN (Reason: pain) Qty: 100 2RF Rx Instructions: Apply to affected areas four times daily as directed esomeprazole magnesium [Nexium] 40 mg capsule,delayed release(DR/EC) 40 mg PO HS montelukast [Singulair] 10 mg tablet 10 mg PO QPM albuterol sulfate 90 mcg/actuation HFA aerosol inhaler 2 puff inhalation Q6H PRN (Reason: Wheezing) Repatha SureClick 140 mg/mL Pen Injector 140 mg SUBCUT Q14D levothyroxine [Synthroid] 25 mcg tablet 25 mcg PO QAM megestrol 40 mg tablet 40 mg PO DAILY PRN (Reason: Other) gabapentin 300 mg capsule 300 mg PO TID levalbuterol tartrate 45 mcg/actuation HFA aerosol inhaler 2 puff INHALATION Q6H PRN (Reason: sob/wheezing) budesonide-formoterol [Symbicort] 160-4.5 mcg/actuation HFA aerosol inhaler 2 puff INHALATION BID prasugrel HCl 10 mg tablet 10 mg PO DAILY Tezspire 210 mg/1.91 mL (110 mg/mL) pen injector 210 mg SUBCUT UD metoprolol succinate 25 mg tablet extended release 24 hr 37.5 mg PO QPM aspirin 81 mg Tablet,Delayed Release (Dr/Ec) 81 mg PO QAM 30 Days Qty: 30 2RF rosuvastatin 20 mg Tablet 20 mg PO HS 30 Days Qty: 30 2RF Discontinued sacubitril-valsartan [Entresto] 24-26 mg Tablet 1 tab PO BID 30 Days Qty: 60 2RF Discharge Orders: Discharge Order (Routine); Ordered 04/02/25 Ordered By: Arthur Strickland Admission Data Admit Date/Time: 03/31/25 13:51 Attending Provider: Stephanie Farmer Admit Provider: Arthur Strickland Primary Care Provider: PCP,NO Other Providers: Liborio Sanders; Stephanie Farmer Other Interventions: Discharge Summary Assessment (RN) Last Done: 04/02/25 12:46 Supervising Physician Co-Signing Physician Notes I personally examined the patient and verified levine points of history and exam, discussed case, and agree with decision making and plan documented by Dr. Strickland. Patient is a 77-year-old female with a past medical history of CAD, ischemic cardiomyopathy, hyperlipidemia, anemia, and severe persistent asthma presenting with chest pressure and left arm pain on admission for unstable angina pectoralis. ACS workup initiated and cardiac catheterization performed with no clear indication of continued left upper extremity pain. MRI cervical spine revealing critical spinal canal stenosis C3-4, C4-5, severe stenosis C5-6, and moderate stenosis C5 67. No weakness or paresthesias associated. Patient was referred to spine orthopedics at [facility] [place] for outpatient workup and recommendations. Duloxetine 30 mg was started. 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 Patient will follow-up with PCP, cardiology, and establish with orthopedics as recommended. Total attending time 38 min
--- NOTE | 2025-04-02 12:56 | Cardiology Progress Note ---
Date of Service April 02, 2025 Assessment & Plan (1) Cervical spinal stenosis: Plan: 69-year-old female presented with worsening symptoms of left-sided chest discomfort/pressure, pain in neck and left upper extremity. Cardiac catheterization revealed no culprit noted explained resting anginal symptoms and given the characteristic of her complaint she therefore underwent an MRI of the cervical spine without contrast revealing multilevel degenerative disc disease and spinal canal stenosis. With regards to pain control, she is a poor candidate for nonsteroidal anti- inflammatory therapy given her underlying coronary heart disease and left ventricular systolic dysfunction. Would recommend ongoing treatment with duloxetine. Outpatient spine surgery consultation planned. Has been 6 months since her lateral ST segment elevation myocardial infarction. If surgical intervention determined to be best course of action, prasugrel could be placed on hold to allow for surgery, ideally would continue aspirin 81 mg daily without interruption. (2) CAD (coronary artery disease): Plan: Patient underwent repeat cardiac catheterization on 04/02/2025 with results as follows: 1. Nonobstructive major epicardial coronary artery disease -Widely patent proximal to mid circumflex stents 40-50% earlymid LAD stenosis at takeoff of D1 30% proximal to mid RCA disease 2. Stable small branch vessel disease 70% ostial jailed OM3(Unchanged compared to September,) 40% ostial D1 3. Normal intracardiac filling pressure Continue aspirin 81 mg daily and prasugrel. As noted if surgical intervention felt to be indicated for the cervical spine, could hold prasugrel but would continue aspirin without interruption and resume prasugrel as soon as feasible postoperatively. Continue metoprolol succinate 37.5 mg daily. Reduce Entresto 24/26 mg to 1/2 tablet 2 times per day Add isosorbide mononitrate (Imdur, 30 mg tablet, 1/2 tablet by mouth daily Continue rosuvastatin and Repatha. (3) HFrEF (heart failure with reduced ejection fraction): Plan: Left ventricular ejection fraction in the range of 35 to 40% in the setting of chronic left bundle branch block and circumflex territory scar. Volume status stable without need for diuretic therapy clinically -Medications as noted above (4) LBBB (left bundle branch block): Plan: as noted above (5) Thalassemia: Plan: chronic mild anemia Admission and Anticipated Discharge Date Admission Date: March 31, 2025 Subjective Patient seen in cardiology follow-up. No current chest discomfort. Notes generalized fatigue and has not slept well while in the hospital. Telemetry reveals sinus rhythm in the 80s to 90s Review of Systems Review of Systems: All systems reviewed & are unremarkable except as noted in HPI & below Physical Exam Physical Exam: General: no acute distress and stated age Eyes: conjunctiva are pink and non-injected, sclera clear Neck: normal jugular venous pulse, no hepatojugular reflux Chest: normal shape and normal respiratory effort Lungs: clear to auscultation and percussion Cardiac Exam: - regular heart sounds, no murmurs, rubs, or gallops, no jugular venous distention Abdomen: abdomen soft, non-tender, no abnormal masses and no hepatosplenomegaly Extremities: no edema and no cyanosis Neuro:awake, conversant, follows commands, no focal motor deficits Psych: appropriate affect and insight. Results & Data Vital Signs (Past 12 Hours) Vital Signs Temp Pulse Resp BP Pulse Ox O2 Del Method 04/02/25 11:17 36.7 C 97 H 125/74 95 Room Air 04/02/25 07:51 36.9 C 87 130/79 96 Room Air 04/02/25 02:29 36.9 C 85 16 113/64 95 Room Air Laboratory Results CBC 04/02/25 Range/Units 06:11 WBC 5.95 (4.8-10.8) K/ul RBC 4.82 (4.20-5.40) M/uL Hgb 8.8 L (12.0-16.0) g/dL Hct 28.3 L (37.0-47.0) % Plt Count 325 (130-400) K/uL Neut # (Auto) 3.36 (1.40-6.50) K/uL Lymph # (Auto) 1.89 (1.20-3.40) K/uL [place] # (Auto) 0.60 H (0.11-0.59) K/uL Eos # (Auto) 0.04 (0.00-0.50) K/uL Baso # (Auto) 0.05 (0.00-0.20) K/uL Comprehensive Metabolic Panel 04/02/25 Range/Units 06:11 Sodium 138 (136-145) mmol/L Potassium 3.9 (3.5-5.1) mmol/L Chloride 107 (98-107) mmol/L Carbon Dioxide 23 (21-32) mmol/L BUN 11 (6-23) mg/dl Creatinine 0.88 (0.6-1.2) mg/dl Calcium 8.5 L (8.6-10.3) mg/dl Coding Level of Care Code 15074 SUB INP/OBS CARE 3/50MIN Diagnoses Cervical spinal stenosis M48.02 CAD (coronary artery disease) I25.110 Associated angina: with unstable angina Coronary Disease-Associated Artery/Lesion type: [place] artery [place] vs. transplanted heart: [place] heart HFrEF (heart failure with reduced ejection fraction) I50.20 LBBB (left bundle branch block) I44.7 Thalassemia D56.9 (2) CAD (coronary artery disease) Associated angina: with unstable angina Coronary Disease-Associated Artery/Lesion type: [place] artery [place] vs. transplanted heart: [place] heart Qualified Code(s): I25.110 - Atherosclerotic heart disease of [place] coronary artery with unstable angina pectoris
--- NOTE | 2025-04-03 18:17 | Electrocardiogram Report ---
Test Reason : Blood Pressure : */* mmHG Vent. Rate : 89 BPM Atrial Rate : 89 BPM P-R Int : 184 ms QRS Dur : 132 ms QT Int : 390 ms P-R-T Axes : 55 -33 112 degrees QTcB Int : 474 ms Normal sinus rhythm Left axis deviation Left bundle branch block Abnormal ECG When compared with ECG of 26-Sep-2024 10:48, No significant change Confirmed by Rosendo Velez ([id number]) on 04/03/2025 6:17:20 PM Referred By: Confirmed By: Rosendo Velez
== END 2025-04-02 13:15 | disposition home or self-care (01) | DRG 287 ==
LOC: ED 09:30 → 2S 13:51